=== PATIENT | female | born 1980 | race Caucasian/White ===

== ENCOUNTER 2020-06-10 13:45 | Outpatient (REF) | payer MEDICAID, SELFPAY | END 2020-06-10 13:46 | disposition home or self-care (01) | LOC: HO.LAB 13:45 | PROVIDERS: Visit Provider Internal Medicine | DX: Z20.822 Contact with and (suspected) exposure to COVID-19 (principal) | CPT/HCPCS: 36415; C9803; U0003 ==

== ENCOUNTER 2021-01-28 02:49 | Emergency (ER) | payer MEDICAID, SELFPAY ==
--- NOTE | ~2021-01-28 | XR_ITS ---
EXAMINATION: XR CHEST CLINICAL INFORMATION: Cough COMPARISON: 08/07/2015 TECHNIQUE: Frontal view of the chest was obtained. FINDINGS: The lungs are clear with no focal consolidation. No evidence of pneumothorax, pulmonary edema, or pleural effusions. The cardiomediastinal silhouette is unremarkable. No acute osseous findings. Fusion hardware noted at the cervicothoracic junction. XR/XR chest 1V IMPRESSION: No acute cardiopulmonary findings.
[2021-01-28 03:04] VITALS: BP 128/104; PULSE 102; RESP 18; TEMP 37.3; O2SAT 99; BMI 42.5
[2021-01-28 03:30] LABS: IDNOW Serial# 9DD0AD1C
[2021-01-28 03:31] LABS: COVID-19 Test Positive (Negative)
--- NOTE | 2021-01-28 04:53 | PC.NURSE ---
at bedside for primary eval.
--- NOTE | 2021-01-28 04:58 | ED_ITS ---
HPI - General Adult General Chief complaint: General Medical Stated complaint: COVID symptoms Time Seen by Provider: 01/28/21 04:51 Source: patient Mode of arrival: ambulatory Limitations: no limitations History of Present Illness HPI narrative: Patient comes emergency room complaining of COVID like symptoms. Patient reports headache, bilateral eye pressure, chills, nonproductive cough, runny nose for 2 days. Patient states that her daughter has similar symptoms, the daughter works at [employer]. Related Data Previous Rx's Medication Instructions Recorded acetaminophen 650 mg 650 mg PO Q8H PRN #20 tab 01/28/21 tablet,extended release Allergies Allergy/AdvReac Type Severity Reaction Status Date / Time ciprofloxacin [CIPROFLOXACIN] Allergy Severe ITCHING Verified 01/28/21 03:04 THROAT SWELLING Sulfa (Sulfonamide Allergy Intermediate GI UPSET, Verified 01/28/21 03:04 Antibiotics) ITCHING [SULFA (SULFONAMIDE ANTIBIOTICS)] ibuprofen [IBUPROFEN] Allergy Unknown RASH Verified 01/28/21 03:04 quetiapine [From SEROQUEL] Allergy Unknown RASH Verified 01/28/21 03:04 motrin Allergy Unknown Rash Uncoded 01/28/21 03:04 sulfa Allergy Unknown Rash Uncoded 01/28/21 03:04 Review of Systems Review of Systems: Constitutional : No Weight loss, complaining of fever, chills, fatigue, generalized malaise ENT/Mouth : No Hearing loss, No Ear Pain, No Nasal Congestion, No Sinus Pain, No Hoarseness, No sore throat, No Rhinorrhea, No Swallowing Difficulty Eyes: No Eye Pain, No Swelling, No Redness, No Foreign Body, No Discharge, No Vision Changes, complaining of eye burning and eye pressure Cardiovascular : No Chest Pain, No SOB, No Dyspnea on Exertion, No Orthopnea, No Edema, No Palpitations Respiratory : Complaining of a nonproductive and runny nose No Sputum, No Wheezing, No Smoke Exposure, No Dyspnea Gastrointestinal : No Nausea, No Vomiting, No Diarrhea, No Constipation, No abdominal Pain, No Hematochezia, No Melena Genitourinary : no irregular bleeding, No Dysuria, No Urinary Frequency, No Hematuria, No Urinary Incontinence, No Urgency, No Flank Pain, No Urinary Flow Changes, No Hesitancy Musculoskeletal : No joint pain, No Myalgias, No Joint Swelling Skin : No Skin Lesions, No rash Neuro : No Weakness, No Numbness, No Paresthesias, No Loss of Consciousness, No Dizziness, No Headache Psych : No Anxiety/Panic, No Depression, No SI/HI/AH/VH, No Social Issues, Heme/Lymph: No Bruising, No Bleeding,No Lymphadenopathy Endocrine : No Polyuria, No Polydipsia, No Temperature Intolerance PMFSH Social History Social History Advance Directives: No Advance Directives Information Provided: Yes Patient : No Physical Exam Vital Signs: Vital Signs: Last Vital Signs Temp 99.2 F 01/28/21 03:04 Pulse 102 H 01/28/21 03:04 Resp 18 01/28/21 03:04 BP 128/104 H 01/28/21 03:04 Pulse Ox 99 01/28/21 03:04 Body Mass Index 42.5 Const: Other: Appearance: Alert. Oriented X3. No acute distress. Eyes: Pupils equal, round and reactive to light. ENT: Pharynx normal. Neck: Normal inspection. Neck supple. No lymph nodes noted. No crepitus CVS: Normal heart rate and rhythm. Pulses normal. Normal S1 and S2 Respiratory: No respiratory distress. Breath sounds normal. No Wheezing. No rales Abdomen: Soft and nontender. No rigidity. No distention. good BS x4 Skin: Skin warm and dry. Normal skin color. Normal skin turgor. Extremities: No lower extremity edema. No Lacerations. No Rash Neuro: Oriented X 3. No motor deficit. No sensory deficit. Moving all ext ermities. No slurred speech. Course Course Course Narrative: I discussed with the patient that she tested positive for COVID-19. Explained to the patient that she will need to stay in isolation for 14 days. With the patient, no acute findings Medical Decision Making Lab Data Labs: Lab Results 01/28/21 Range/Units 03:03 COVID-19 (ESTEFANIA) Positive A (Negative) COVID-19 Clin Com See Note Imaging Data Chest x-ray: Radiologist's impression: The lungs are clear with no focal consolidation. No evidence of pneumothorax, pulmonary edema, or pleural effusions. The cardiomediastinal silhouette is unremarkable. No acute osseous findings. Fusion hardware noted at the cervicothoracic junction. XR/XR chest 1V IMPRESSION: No acute cardiopulmonary findings. Discharge Plan Discharge Clinical Impression: COVID-19 Patient Disposition: Home, Self-Care Instructions: COVID-19 (Coronavirus Disease 2019) (ED) Additional Instructions: You need to isolate for 14 days. All your immediate contact need to be tested. Please follow-up with your primary care physician tomorrow. If you have any worsening or new symptoms, please return to the emergency room or call 911 Prescriptions: New acetaminophen 650 mg tablet extended release 650 mg PO Q8H PRN (Reason: fever or pain) Qty: 20 RF: 0
== END 2021-01-28 05:19 | disposition home or self-care (01) ==
PROVIDERS: Emergency Provider Emergency Medicine
DX: U07.1 COVID-19 (principal)
CPT/HCPCS: 36415; 71045; 87635; 99283

== ENCOUNTER 2021-06-10 13:37 | Emergency (ER) | payer OTHER, MEDICAID, SELFPAY ==
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
[2021-06-10 14:41] VITALS: BP 190/96; PULSE 88; RESP 16; TEMP 36.8; O2SAT 100; BMI 42.5
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
== END 2021-06-10 17:30 | disposition home or self-care (01) ==
PROVIDERS: Emergency Provider Emergency Medicine; PCP Family Medicine
DX: S76.012A Strain of muscle, fascia and tendon of left hip, initial encounter (principal); S16.1XXA Strain of muscle, fascia and tendon at neck level, initial encounter; V43.52XA Car driver injured in collision with other type car in traffic accident, initial encounter; Y93.89 Activity, other specified; Y92.414 Local residential or business street as the place of occurrence of the external cause; Y99.9 Unspecified external cause status
CPT/HCPCS: 72125; 73502; 99283; 99284

== ENCOUNTER 2022-01-26 08:03 | Outpatient (REF) | payer MEDICAID, OTHER, SELFPAY | END 2022-01-26 08:04 | disposition home or self-care (01) | LOC: HO.HOSX 08:03 | PROVIDERS: Visit Provider Physician Assistant | DX: Z13.89 Encounter for screening for other disorder (principal) ==

== ENCOUNTER 2023-03-30 15:56 | Outpatient (REF) | payer MEDICAID, SELFPAY ==
[2023-03-30 17:44] LABS: MANUAL DIFF FLAG NO
[2023-03-30 17:50] LABS: Basophils Percent Auto 0.4 % (0-2); Eosinophils Absolute Auto 0.1 X10*3/uL (0.0-0.4); Eosinophils Percent Auto 1.7 % (0-4); Hematocrit 30.4 % (37.0-47.0); Imm Gran Abs Auto 0.03 X10*3/uL (0.00-0.03); Imm Gran Pct Auto 0.4 % (0.0-0.4); Lymphocytes Absolute Auto 2.2 X10*3/uL (1.2-4.9); Lymphocytes Percent Auto 29.4 % (20-40); Mean Corpuscular HGB Conc 32.9 g/dl (31.0-35.0); Mean Corpuscular Hemoglobin 25.4 pg (27.0-33.0); Mean Corpuscular Volume 77.4 fL (80.0-98.0); Mean Platelet Volume 10.4 fL (9.4-12.3); Monocytes Absolute Auto 0.5 X10*3/uL (0.1-1.2); Monocytes Percent Auto 6.3 % (2-11); Neutrophils Absolute Auto 4.7 x10*3/uL (2.0-8.3); Neutrophils Percent Auto 61.8 % (45-73); Platelet Count 378 X10*3/uL (160-400); Red Blood Count 3.93 X10*6/uL (4.20-5.50); Red Cell Distribution Width 17.3 % (11.0-16.0); White Blood Count 7.6 X10*3/uL (4.8-10.8)
[2023-03-30 18:28] LABS: Alanine Aminotransferase 52 U/L (0-31); Albumin Level 3.9 g/dL (3.5-5.0); Alkaline Phosphatase 68 U/L (39-117); Anion Gap 13 (12-20); Aspartate Amino Transferase 44 U/L (5-31); Bilirubin Total 0.2 mg/dL (0.0-1.0); Blood Urea Nitrogen 6 mg/dL (9-16); Calcium 9.7 mg/dL (8.4-10.2); Carbon Dioxide 24 mmol/L (22-29); Chloride 109 mmol/L (96-108); Cholesterol 213 mg/dL (<200); Estimated Glomerular Filt Rate > 60; Glucose Random 103 mg/dL (60-115); HDL Cholesterol 46 mg/dL (>40); Iron 24 mcg/dL (30-160); LDL Cholesterol Calculated 114 mg/dL (<100); Percent Iron Saturation 8 % (15-50); Potassium 4.3 mmol/L (3.3-5.1); Sodium 142 mmol/L (135-145); Total Iron Binding Capacity 308 mcg/dL (228-428); Total Protein 7.5 g/dL (6.5-8.0); Triglycerides 265 mg/dL (<150); Unsaturated Iron Binding 284 ug/dL
[2023-03-30 18:45] LABS: Ferritin 20 ng/mL (10-250); TSH reflex Free T4 0.19 uIU/mL (0.32-4.0)
[2023-03-30 19:23] LABS: Free T4 (Free Thyroxine) 0.82 ng/dL (0.71-1.85)
[2023-03-30 23:43] LABS: Creatinine Urine 59.56 mg/dL
[2023-03-31 11:32] LABS: CT PCR NOT DETECTED (Not Detect.); NG PCR NOT DETECTED (Not Detect.)
[2023-03-31 13:41] LABS: BV Int Neg Control Negative (Negative); BV Int Pos Control Positive (Positive)
== END 2023-03-30 15:57 | disposition home or self-care (01) ==
LOC: HO.CHCLDS 15:56
PROVIDERS: Advanced Practice Midwife; Visit Provider Family Medicine
DX: E66.01 Morbid (severe) obesity due to excess calories (principal); Z68.41 Body mass index [BMI] 40.0-44.9, adult; D64.9 Anemia, unspecified; N89.8 Other specified noninflammatory disorders of vagina
CPT/HCPCS: 0353U; 36415; 80053; 80061; 82043; 82570; 82728; 83540; 84439; 84443; 85025; 87480; 87510; 87660

== ENCOUNTER 2023-05-05 08:28 | Outpatient (REF) | payer MEDICAID, SELFPAY ==
--- NOTE | ~2023-05-05 | XR_ITS ---
EXAMINATION: XR HAND, RIGHT CLINICAL INFORMATION: Pain. COMPARISON: None available. TECHNIQUE: PA, lateral, and oblique views of the right hand. FINDINGS: Bony alignment and mineralization are normal. There is mild osteoarthritic change of the interphalangeal joint of the thumb. No fracture or dislocation is seen. The proximal and distal carpal rows are intact. There is no abnormal bone erosion. No focal soft tissue swelling, gas or foreign body is seen. 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 The examination is otherwise unremarkable.
== END 2023-05-05 08:29 | disposition home or self-care (01) ==
LOC: HO.HOSX 08:28
PROVIDERS: Visit Provider Orthopaedic Surgery
DX: M79.641 Pain in right hand (principal); R20.0 Anesthesia of skin; M79.601 Pain in right arm
CPT/HCPCS: 73130; 99202

== ENCOUNTER 2023-05-05 10:25 | Outpatient (AMB) | payer MEDICAID, SELFPAY ==
[2023-05-05 11:29] VITALS: BMI 42.5
--- NOTE | 2023-05-05 11:29 | A.OFFVIS_ITS ---
Intake Vital Signs 05/05/23 11:29 Height 5 ft 3 in Weight 240 lb BMI 42.5 Intake Visit Reasons: [id number] hand pain Intake Note: right hand dominant female, presents today for her right hand pain. States pain is all around her wrist, burning sensation and pain in neck when she lifts her arm. No injury she can recall. States she has numbness and tingling on a daily basis especially at night time that started about 2 months ago. States she was given a brace however she is only able to wear it for 1 hour due to increase pain. Allergies ciprofloxacin [CIPROFLOXACIN] Allergy (Severe, Verified 05/05/23 11:33) ITCHING THROAT SWELLING Sulfa (Sulfonamide Antibiotics) [SULFA (SULFONAMIDE ANTIBIOTICS)] Allergy (Intermediate, Verified 05/05/23 11:33) GI UPSET, ITCHING ibuprofen [IBUPROFEN] Allergy (Unknown, Verified 05/05/23 11:33) RASH quetiapine [From SEROQUEL] Allergy (Unknown, Verified 05/05/23 11:33) RASH motrin Allergy (Unknown, Uncoded 05/05/23 11:33) Rash sulfa Allergy (Unknown, Uncoded 05/05/23 11:33) Rash HPI [id number] hand pain HPI Details Lyubov is a 42 year old right hand dominant woman who presents with complaints numbness in her right middle and ring fingers, and a burning pain extending up the volar aspect of her right forearm. She also complains of pain extending up across the medial aspect of the elbow, and then a pain along the lateral aspect of the upper arm and then a pain that extends up to both sides of her neck with motion of her right arm. These symptoms have been present for ~2 months now. She says her numbness in the middle and ring fingers appears to be constant. She was given a wrist brace to wear but says she cannot tolerate it for more thna an hour due to increased pain. 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 Review of Systems Const All systems reviewed & are unremarkable except as noted in HPI and below Physical Exam Vital Signs: BMI result Body Mass Index 42.5 Const General: cooperative, healthy appearing and no acute distress Orientation/consciousness: patient oriented x3 HEENT Head: Yes normocephalic and Yes atraumatic Eyes EOM: EOMs intact bilaterally Resp Effort & Inspection: normal respiratory effort and able to speak in complete sentences Cardio Jugular venous distension: no JVD Skin General skin exam: turgor normal Rashes: no rashes Neuro General: patient oriented x3 Extrem Other: Evaluation of Right Upper Extremity: The patient is alert, oriented, and in no acute distress Neuro: Dense numbness in the middle & ring fingers. Normal sensation to the tips of other digits No thenar or intrinsic wasting Good APB muscle belly firing and good finger cross Interestingly, she also says that she has dense numbness in the volar forearm. Vascular: Cap refill brisk ROM: She can make a fist and extend all her digits No locking or catching Skin: No lacerations or abrasions. General: No Ecchymosis. No Erythema or evidence of infection. Radiographs: 3 views of the right hand were taken and viewed by me today in clinic. They show no fractures, dislocations, or significant arthritic changes. Psych Appearance: grossly normal Affect: normal affect Attitude: cooperative Assessment & Plan Assessment & Plan (1) Numbness of right hand: Code(s): R20.0 - Anesthesia of skin (2) Right arm pain: Code(s): M79.601 - Pain in right arm Plan Assessment & Plan: 1. Right hand numbness Primarily in the middle & ring fingers Dense numbness I ordered a NCS to assess for peripheral nerve compression vs cervical radiculopathy She will follow up when completed for review 2. Right arm pain In the medial volar forearm, also the lateral aspect of her upper arm, and then pain in her neck with right arm range of motion. I did explain that if she is having nerve compression in the carpal tunnel, I do not think that this is contributing to any of the painful symptoms in her upper arm shoulder or neck. It could be contributing to some of the discomfort in her volar forearm. Scribed for Diana España MD by Clark Rivera, medical radiation therapist, on [ ] at [ ], EST. Orders: Orders XR hand RT min 3V Today M79.641 - Pain in right hand NE nerve conduction velocity Today R20.0 - Anesthesia of skin, R20.2 - Paresthesia of skin Coding Level of Care Code New Pt Level 3 (80408) Diagnoses Numbness of right hand R20.0 Right arm pain M79.603
== END 2023-05-05 12:11 | disposition home or self-care (01) ==
PROVIDERS: PCP Family Medicine; Visit Provider Orthopaedic Surgery
DX: R20.0 Anesthesia of skin (principal); M79.601 Pain in right arm
CPT/HCPCS: 99203

== ENCOUNTER 2023-06-18 13:00 | Outpatient (REF) | payer MEDICAID, SELFPAY ==
--- NOTE | 2023-06-18 13:03 | EMG_ITS ---
Chief complaint: 2 months of right wrist pain and tingling on tips of 3rd-5th digits. Wearing the wrist splints have helped so far. Denies neck pain. Although history of cervical fusion. Reason for referral: Evaluate for Carpal Tunnel Syndrome versus radiculopathy Referred by: Dr. España Procedure done: Right upper extremity NCS/EMG Precautions and/or limitations: None The limb temperature was monitored continuously and remained between 32-36 degrees C during the performance of the NCS. Nerve Conduction Studies Anti Sensory Summary Table ?Stim Site NR Onset (ms) Norm Onset (ms) Peak (ms) Norm Peak (ms) O-P Amp (?V) Norm O-P Amp Site1 Site2 Delta-0 (ms) Dist (cm) Hussein (m/s) Norm Hussein (m/s) Right Median Anti Sensory (2nd Digit) Wrist ? 2.3 2.9 <3.6 30.1 >10 Wrist 2nd Digit 2.3 14.0 61 Right Radial Anti Sensory (Thumb) Forearm ? 1.5 2.0 <3.1 16.6 Forearm Thumb 1.5 0.0 Right Ulnar Anti Sensory (5th Digit) Wrist ? 2.1 2.8 <3.7 19.2 >15.0 Wrist 5th Digit 2.1 14.0 67 Motor Summary Table ?Stim Site NR Onset (ms) Norm Onset (ms) O-P Amp (mV) Norm O-P Amp iAmp (mV) Amp (1st) (%) Site1 Site2 Delta-0 (ms) Dist (cm) Hussein (m/s) Norm Hussein (m/s) Right Median Motor (Abd Poll Brev) Wrist ? 3.0 <3.9 11.2 >4.5 13.4 100.0 Elbow Wrist 3.7 20.0 54 >45 Elbow ? 6.7 11.9 14.6 106.3 Right Ulnar Motor (Abd Dig Minimi) Wrist ? 2.4 <3.0 9.1 >5 11.4 100.0 B Elbow Wrist 2.9 18.0 62 >45 B Elbow ? 5.3 7.4 9.8 81.3 A Elbow B Elbow 1.7 10.0 59 >45 A Elbow ? 7.0 6.2 8.2 68.1 EMG ?Side Muscle Nerve Root Ins Act Fibs Psw Amp Dur Poly Recrt Int Pat Comment Right 1stDorInt Ulnar C8-T1 Nml Nml Nml Nml Nml 0 Nml Complete Right FlexCarRad Median C6-7 Nml Nml Nml Nml Nml 0 Nml Complete Right Biceps Musculocut C5-6 Nml Nml Nml Nml Nml 0 Nml Complete Right Triceps Radial C6-7-8 Nml Nml Nml Nml Nml 0 Nml Complete Right Deltoid Axillary C5-6 Nml Nml Nml Nml Nml 0 Nml Complete FINDINGS: All motor and sensory nerves tested showed normal latencies, amplitudes and conduction velocities. Concentric needle EMG was performed in selected muscles of the right upper extremity. Study did not reveal signs of electric abnormalities as shown in the table below. IMPRESSION: 1. This is a normal study. 2. There is no electrodiagnostic evidence for median neuropathy, ulnar neuropathy, brachial plexopathy, or cervical radiculopathy. Thank you for your kind referral. Nessa Padilla MD, FERCHO Board Certified, [place] [employer] and [employer] (ABPMR) Board Certified, [place] Board [employer] Electrodiagnostic [employer] (ABEM) [place] [id number] [facility]
== END 2023-06-18 13:01 | disposition home or self-care (01) ==
LOC: HO.NEURO 13:00
PROVIDERS: PCP Family Medicine; Visit Provider Orthopaedic Surgery
DX: R20.0 Anesthesia of skin (principal); R20.2 Paresthesia of skin
CPT/HCPCS: 95886; 95909

== ENCOUNTER → 2023-06-18 13:03 | Outpatient (BNV) | payer MEDICAID, SELFPAY | PROVIDERS: PCP Family Medicine; Visit Provider Physical Medicine & Rehabilitation | DX: M25.531 Pain in right wrist (principal) | CPT/HCPCS: 95886; 95909 ==

== ENCOUNTER 2023-07-14 08:24 | Outpatient (REF) | payer MEDICAID, SELFPAY ==
--- NOTE | ~2023-07-14 | MM_ITS ---
EXAMINATION: MM SCREENING DIGITAL BREAST TOMOSYNTHESIS, BILATERAL CLINICAL INFORMATION: Screening. Asymptomatic. The patient has had a prior bilateral breast reduction. COMPARISON: Mammography: This is a baseline mammogram. TECHNIQUE: Digital breast tomosynthesis is performed in both the craniocaudal and mediolateral oblique views along with computer-aided detection (CAD). Synthesized 2D images are generated from the tomosynthesis. FINDINGS: There are scattered areas of fibroglandular density (ACR BI-RADS breast composition Category b). There are no significant masses, abnormal calcifications, or other abnormalities. Post reduction changes are present. MM/MM tomosynthesis screening BI IMPRESSION: No mammographic evidence of malignancy. ASSESSMENT: BI-RADS BI-RADS 2 - Benign Findings RECOMMENDATION: Routine annual mammography screening. 1 year F/U This examination should not preclude the clinical evaluation of a suspicious palpable abnormality. This patient's information was entered into a reminder system with a target due date for their next mammogram.
== END 2023-07-14 08:25 | disposition home or self-care (01) ==
LOC: HO.MAMMO 08:24
PROVIDERS: PCP Family Medicine; Visit Provider Family Medicine
DX: Z12.31 Encounter for screening mammogram for malignant neoplasm of breast (principal)
CPT/HCPCS: 77063; 77067

== ENCOUNTER → 2023-07-14 08:45 | Outpatient (BNV) | payer MEDICAID, SELFPAY | PROVIDERS: PCP Family Medicine; Visit Provider Radiology Diagnostic Radiology | DX: Z12.31 Encounter for screening mammogram for malignant neoplasm of breast (principal) | CPT/HCPCS: 77063; 77067 ==

== ENCOUNTER 2023-12-22 11:43 | Outpatient (REF) | payer MEDICAID, SELFPAY ==
[2023-12-22 13:59] LABS: MANUAL DIFF FLAG NO
[2023-12-22 14:08] LABS: Basophils Percent Auto 0.3 % (0-2); Eosinophils Absolute Auto 0.1 X10*3/uL (0.0-0.4); Eosinophils Percent Auto 0.8 % (0-4); Hematocrit 29.2 % (37.0-47.0); Hemoglobin 9.7 g/dl (12.0-16.0); Imm Gran Abs Auto 0.01 X10*3/uL (0.00-0.03); Imm Gran Pct Auto 0.1 % (0.0-0.4); Lymphocytes Absolute Auto 1.8 X10*3/uL (1.2-4.9); Lymphocytes Percent Auto 24.8 % (20-40); Mean Corpuscular HGB Conc 33.2 g/dl (31.0-35.0); Mean Corpuscular Hemoglobin 24.5 pg (27.0-33.0); Mean Corpuscular Volume 73.7 fL (80.0-98.0); Mean Platelet Volume 10.2 fL (9.4-12.3); Monocytes Absolute Auto 0.4 X10*3/uL (0.1-1.2); Monocytes Percent Auto 5.8 % (2-11); Neutrophils Percent Auto 68.2 % (45-73); Platelet Count 353 X10*3/uL (160-400); Red Blood Count 3.96 X10*6/uL (4.20-5.50); Red Cell Distribution Width 17.5 % (11.0-16.0); White Blood Count 7.4 X10*3/uL (4.8-10.8)
[2023-12-22 14:28] LABS: Alanine Aminotransferase 19 U/L (0-31); Alkaline Phosphatase 62 U/L (39-117); Anion Gap 12 (12-20); Aspartate Amino Transferase 18 U/L (5-31); Bilirubin Total 0.3 mg/dL (0.0-1.0); Blood Urea Nitrogen 6 mg/dL (9-16); Calcium 9.4 mg/dL (8.4-10.2); Carbon Dioxide 24 mmol/L (22-29); Chloride 106 mmol/L (96-108); Cholesterol 185 mg/dL (<200); Estimated Glomerular Filt Rate > 60; Glucose Random 103 mg/dL (60-115); HDL Cholesterol 43 mg/dL (>40); LDL Cholesterol Calculated 95 mg/dL (<100); Potassium 4.2 mmol/L (3.3-5.1); Sodium 138 mmol/L (135-145); Total Protein 7.4 g/dL (6.5-8.0); Triglycerides 237 mg/dL (<150)
[2023-12-22 14:37] LABS: HIV AB/AG Nonreactive (Nonreactive); HIV Num 1 0.04 S/CO (0.00-0.99); ~HepC Num1 0.16 S/CO (0.00-0.79); ~Hepatitis C Antibody Nonreactive (Nonreactive)
[2023-12-22 14:48] LABS: TSH reflex Free T4 0.33 uIU/mL (0.32-4.0)
== END 2023-12-22 11:44 | disposition home or self-care (01) ==
LOC: HO.CHCLDS 11:43
PROVIDERS: Visit Provider Family Medicine
DX: Z00.00 Encounter for general adult medical examination without abnormal findings (principal); E66.9 Obesity, unspecified; E78.5 Hyperlipidemia, unspecified
CPT/HCPCS: 36415; 80053; 80061; 84443; 85025; 86803; 87389

== ENCOUNTER 2024-05-22 10:57 | Outpatient (REF) | payer MEDICAID, SELFPAY ==
[2024-05-22 14:10] LABS: MANUAL DIFF FLAG NO
[2024-05-22 14:16] LABS: Basophils Percent Auto 0.2 % (0-2); Eosinophils Absolute Auto 0.1 X10*3/uL (0.0-0.4); Eosinophils Percent Auto 0.8 % (0-4); Hemoglobin 8.1 g/dl (12.0-16.0); Imm Gran Abs Auto 0.03 X10*3/uL (0.00-0.03); Imm Gran Pct Auto 0.4 % (0.0-0.4); Lymphocytes Absolute Auto 1.9 X10*3/uL (1.2-4.9); Lymphocytes Percent Auto 23.1 % (20-40); Mean Corpuscular HGB Conc 32.4 g/dl (31.0-35.0); Mean Corpuscular Hemoglobin 22.8 pg (27.0-33.0); Mean Corpuscular Volume 70.2 fL (80.0-98.0); Mean Platelet Volume 9.8 fL (9.4-12.3); Monocytes Absolute Auto 0.5 X10*3/uL (0.1-1.2); Monocytes Percent Auto 5.5 % (2-11); Neutrophils Absolute Auto 5.8 x10*3/uL (2.0-8.3); Platelet Count 437 X10*3/uL (160-400); Red Blood Count 3.56 X10*6/uL (4.20-5.50); Red Cell Distribution Width 16.8 % (11.0-16.0); White Blood Count 8.3 X10*3/uL (4.8-10.8)
[2024-05-22 14:40] LABS: Cholesterol 183 mg/dL (<200); HDL Cholesterol 47 mg/dL (>40); Iron 27 mcg/dL (30-160); LDL Cholesterol Calculated 109 mg/dL (<100); Percent Iron Saturation 9 % (15-50); Total Iron Binding Capacity 307 mcg/dL (228-428); Triglycerides 135 mg/dL (<150); Unsaturated Iron Binding 280 ug/dL
[2024-05-22 14:50] LABS: Ferritin 8 ng/mL (10-250)
== END 2024-05-22 10:58 | disposition home or self-care (01) ==
LOC: HO.CHCLDS 10:57
PROVIDERS: Visit Provider Family Medicine
DX: D64.9 Anemia, unspecified (principal); E78.5 Hyperlipidemia, unspecified
CPT/HCPCS: 36415; 80061; 82728; 83540; 85025

== ENCOUNTER 2024-08-17 15:11 | Outpatient (REF) | payer MEDICAID, SELFPAY ==
[2024-08-17 17:43] LABS: MANUAL DIFF FLAG NO
[2024-08-17 18:04] LABS: Basophils Percent Auto 0.3 % (0-2); Eosinophils Absolute Auto 0.1 X10*3/uL (0.0-0.4); Eosinophils Percent Auto 1.1 % (0-4); Hemoglobin 7.8 g/dl (12.0-16.0); Imm Gran Abs Auto 0.03 X10*3/uL (0.00-0.03); Imm Gran Pct Auto 0.5 % (0.0-0.4); Lymphocytes Absolute Auto 1.8 X10*3/uL (1.2-4.9); Lymphocytes Percent Auto 30.1 % (20-40); Mean Corpuscular HGB Conc 31.2 g/dl (31.0-35.0); Mean Corpuscular Hemoglobin 21.4 pg (27.0-33.0); Mean Corpuscular Volume 68.7 fL (80.0-98.0); Mean Platelet Volume 10.2 fL (9.4-12.3); Monocytes Absolute Auto 0.4 X10*3/uL (0.1-1.2); Monocytes Percent Auto 6.7 % (2-11); Neutrophils Absolute Auto 3.7 x10*3/uL (2.0-8.3); Neutrophils Percent Auto 61.3 % (45-73); Platelet Count 428 X10*3/uL (160-400); Red Blood Count 3.64 X10*6/uL (4.20-5.50); Red Cell Distribution Width 17.6 % (11.0-16.0); White Blood Count 6.1 X10*3/uL (4.8-10.8)
[2024-08-17 18:17] LABS: Alanine Aminotransferase 11 U/L (0-31); Albumin Level 3.8 g/dL (3.5-5.0); Alkaline Phosphatase 56 U/L (39-117); Anion Gap 10 (12-20); Aspartate Amino Transferase 22 U/L (5-31); Bilirubin Total 0.4 mg/dL (0.0-1.0); Blood Urea Nitrogen 8 mg/dL (9-16); Carbon Dioxide 25 mmol/L (22-29); Chloride 109 mmol/L (96-108); Estimated Glomerular Filt Rate > 60; Glucose Random 87 mg/dL (60-115); Iron 15 mcg/dL (30-160); Percent Iron Saturation 4 % (15-50); Potassium 4.2 mmol/L (3.3-5.1); Sodium 140 mmol/L (135-145); Total Iron Binding Capacity 346 mcg/dL (228-428); Total Protein 7.5 g/dL (6.5-8.0); Unsaturated Iron Binding 331 ug/dL
[2024-08-17 18:35] LABS: TSH reflex Free T4 0.27 uIU/mL (0.32-4.0); Vitamin D 25-OH Total 12.1 ng/mL (>30)
--- OUTSIDE RECORDS SUMMARY | 2024-08-17 18:52 | XMS_ITS | Encounter Summary ---
Author Organization [employer] Address [address] [facility] 7t [place] [address] Care Team Providers Care Wire Frame Maker Name Role Phone Flaca Matthews MD Primary Care Provider [phone] Reason for Visit * Reason Comments Med Refill Encounter Details Date Type Department Care Team ([facility] Contact Info) Description 08/17/2024 Refill [facility] CH[facility] MED & PEDS [address] [place] [address] Flaca Matthews MD [address] [place] [address] Social History Tobacco Use Types Packs/Day Years Used Date Smoking Tobacco: Never Passive Smoke Exposure: Never Smokeless Tobacco: Never Alcohol Use Standard Drinks/Week Comments Never 0 (1 standard drink = 0.6 oz pur e alcohol) Depression Answer Date Recorded Patient Health Questionnaire-9 Score 14 05/18/2023 Patient Health Questionnaire-9 Score 14 05/18/2023 Last PHQ-9: Questionnaire Data Not on file 1 07/19/2022 Housing Stability Answer Date Recorded What is your housing situation today? I have americo herring 10/05/[address] you li ve. Do you have problems with any of the following? None of the above 10/05/2023 Food Insecurity Answer Date Recorded Within the past 12 months, y ou worried that your food would run out before you got money to buy more: Never True 09/17/2023 Within the past 12 months,th e food you bought just didn't last and you didn't have enough money to get more: Never True 05/2024 Transportation Answer Date Recorded In the past 12 months, has l ack of transportation kept you from medical appts, meetings, work or from getting things needed for daily living? No 09/17/2023 Utilities Answer Date Recorded In the past 12 months, has t he electric, gas, oil or water company threatened to shut off services in your home? No 09/17/2023 Depression Answer Date Recorded Patient Health Questionnaire-2 Score 4 05/18/2023 Comments No Sex and Gender Information Value Date Recorded Sex Assigned at Female 04/06/2022 10:15 AM EDT Legal Sex Female 10:15 AM EDT Gender Identity Female 04/06/2022 10:15 AM EDT Sexual Orientation Straight 04/06/2022 10 :15 AM EDT documented as of this encounter Plan of Treatment Not on file documented as of this encounter Visit Diagnoses Not on filedocumented in this encounter Additional Health Concerns Assessment Noted Time PHQ-9 Depression Total Score: 14 023 3:08 PM EST documented as of this encounter Care Teams Wire Frame Maker Relationship Specialty Start Date End Date Flaca Matthews MD [address] [place] [address] PCP - General Family Medicine 03/05/21 documented as of this encounter
--- OUTSIDE RECORDS SUMMARY | 2024-08-17 18:52 | XMS_ITS | Encounter Summary ---
Author Organization [employer] Address [address] [facility] [address] 7[address] [place] [address] Care Team Providers Care National Sales Representative Name Role Phone Flaca Matthews MD Primary Care Provider [phone] Encounter Details Date Type Department Care Team (Latest Contact Info) Description 08/16/2024 Travel Social History Tobacco Use Types Packs/Day Years [...] documented as of this encounter Care Teams National Sales Representative Relationship Specialty Start Date End Date Flaca Matthews MD [address] [place] [address] PCP - General Family Medicine 03/05/21 documented as of this encounter
--- OUTSIDE RECORDS SUMMARY | 2024-08-17 18:52 | XMS_ITS | Encounter Summary ---
Author Organization [employer] Address [address] [facility] 7t [place] [address] Care Team Providers Care Superintendent Pressure Name Role Phone Flaca Matthews MD Primary Care Provider [phone] Reason for Visit * Reason Comments Med Refill Encounter Details Date Type Department Care Team ([facility] Contact Info) Description 07/21/2024 Refill [facility] CH[facility] MED & PEDS [address] [place], [place] [id number] Flaca Matthews MD [address] [place] [address] Social History Tobacco Use Types Packs/Day Years [...] documented as of this encounter Care Teams Superintendent Pressure Relationship Specialty Start Date End Date Flaca Matthews MD [address] [place] [address] PCP - General Family Medicine 03/05/21 documented as of this encounter
--- OUTSIDE RECORDS SUMMARY | 2024-08-17 18:52 | XMS_ITS | Encounter Summary ---
Author Organization [employer] Address [address] [facility] [address]t [place] [address] Care Team Providers Care Munitions Handler Name Role Phone Flaca Matthews MD Primary Care Provider [phone] Reason for Visit * Reason Onset Date Comments Referral 03/31/2024 Encounter Details Date Type Department Care Team ([facility] st Contact Info) Description 03/31/2024 Telephone [facility] [address] [place] [address] Flaca Matthews MD [address] [place] [address] Referral Social History Tobacco Use Types Packs/Day Years [...] AM EDT documented as of this encounter Miscellaneous Notes * Telephone Encounter - Lyubov Cisneros - 04/13/2024 9:18 AM EST Referral was sent as internal on 10/04. Referral processed today. * Telephone Encounter - Suzanne Ernst RN - 04/04/2024 10:58 AM EDT TC placed to pt to f/u on referral request due to TMJ. Pt states that she has been dealing with this jaw pain and discomfort chronically and states that PCP is aware of this. Pt was referred to oral surgery on 10/05/2023 due to right sided temporomandibular pain. Encounter will be forwarded to referrals to see if any update/information on this is available * Telephone Encounter - Vernon Cisneros - 03/31/2024 2:13 PM EDT Tc from Pt requesting a referral for a TMJ , Pt will like a callback [phone] documented in this encounter Plan of Treatment Not on file documented as of this encounter Visit Diagnoses Not on filedocumented in this encounter Additional Health Concerns Assessment Noted Time PHQ-9 Depression Total Score: 14 023 3:08 PM EST documented as of this encounter Care Teams Munitions Handler Relationship Specialty Start Date End Date Flaca Matthews MD [address] [place] [address] PCP - General Family Medicine 03/05/21 documented as of this encounter
--- OUTSIDE RECORDS SUMMARY | 2024-08-17 18:52 | XMS_ITS | Encounter Summary ---
Author Organization [employer] Address [address] [facility] 7t [place] [address] Care Team Providers Care Contract Clerk Name Role Phone Flaca Matthews MD Primary Care Provider [phone] Reason for Visit * Reason Comments Med Refill Encounter Details Date Type Department Care Team ([facility] Contact Info) Description 03/27/2023 Refill [facility] [address] [place] [address] Flaca Matthews MD [address] [place] [address] Social History Tobacco Use Types Packs/Day Years Used Date Smoking Tobacco: Never Passive Smoke Exposure: Never Smokeless Tobacco: Never Alcohol Use Standard Drinks/Week Comments Never 0 (1 standard drink = 0.6 oz pur e alcohol) Depression Answer Date Recorded Patient Health Questionnaire-9 Score 20 08/04/2022 Housing Stability Answer Date Recorded What is your housing situation today? I have americo herring 03/22/[address] you li ve. Do you have problems with any of the following? None of the above 03/22/2023 Food Insecurity Answer Date Recorded Within the past 12 months, y ou worried that your food would run out before you got money to buy more: Never True 03/22/2023 Within the past 12 months,th e food you bought just didn't last and you didn't have enough money to get more: Never True Transportation Answer Date Recorded In the past 12 months, has l ack of transportation kept you from medical appts, meetings, work or from getting things needed for daily living? No 03/22/2023 Utilities Answer Date Recorded In the past 12 months, has t he electric, gas, oil or water company threatened to shut off services in your home? No 03/22/2023 Depression Answer Date Recorded Patient Health Questionnaire-2 Score 4 08/04/2022 Comments Unknown Sex and Gender Information Value Date Recorded [...] Assessment Noted Time PHQ-9 Depression Total Score: 20 023 1:36 PM EST documented as of this encounter Care Teams Contract Clerk Relationship Specialty Start Date End Date Flaca Matthews MD [address] [place] [address] PCP - General Family Medicine 03/05/21 documented as of this encounter
--- OUTSIDE RECORDS SUMMARY | 2024-08-17 18:52 | XMS_ITS | Encounter Summary ---
Author Organization [employer] Address [address] [facility] [address] [place] [address] Care Team Providers Care Commercial Internship Name Role Phone Flaca Matthews MD Primary Care Provider [phone] Reason for Visit * Reason Onset Date Comments chart prep 08/15/2024 Encounter Details Date Type Department Care Team ([facility] Contact Info) Description 08/15/2024 Telephone [facility] CH[facility] MED & PEDS [address] [place] [address] Flaca Matthews MD [address] [place] [address] chart prep Social History Tobacco Use Types Packs/Day Years [...] encounter Miscellaneous Notes * Telephone Encounter - Lexie Walden MA - 08/15/2024 3:39 PM EDT Chart Prep Labs: not done Images: not done Vaccines due: yes Referrals: pending appt Screenings: none Overdue care gaps: SDOH documented in this encounter Plan of Treatment Not on file documented as of this encounter Visit Diagnoses Not on filedocumented in this encounter Additional Health Concerns Assessment Noted Time PHQ-9 Depression Total Score: 14 023 3:08 PM EST documented as of this encounter Care Teams Commercial Internship Relationship Specialty Start Date End Date Flaca Matthews MD [address] [place] [address] PCP - General Family Medicine 03/05/21 documented as of this encounter
--- OUTSIDE RECORDS SUMMARY | 2024-08-17 18:52 | XMS_ITS | Encounter Summary ---
Author Organization [employer] Address [address] [facility] 7t [place] [address] Care Team Providers Care Tugboat Engineer Name Role Phone Flaca Matthews MD Primary Care Provider [phone] Reason for Visit * Reason Onset Date Comments triage 08/01/2024 Encounter Details Date Type Department Care Team ([facility] st Contact Info) Description 08/01/2024 Telephone [facility] CHC MED & PEDS [address] [place] [address] Flaca Matthews MD [address] [place] [address] triage Social History Tobacco Use Types Packs/Day Years [...] encounter Miscellaneous Notes * Telephone Encounter - Rosemary Mcnair RN - 08/01/2024 11:47 AM EST Called pt. She states that she has been having a lot of hair loss x 3 months. Pt. States her hair loss started when she went on Wegovy but has been off it x 2 months and she still has large amount ofhair loss. Pt. Is currently taking Fergon 324mg daily due to iron deficiency and wants to get otherblood work ordered to see if she id deficient in any other vitamins that could cause hair loss. Protocol Used: Hair Loss (Pediatric) Protocol-Based Disposition: televisit scheduled for 1pm to discuss concerns of hair loss and possible orders for blood work. Video visit offer not recorded Positive Triage Question: * Widespread hair thinning and cause not known (Exception: normal hair loss in infancy) * All higher-acuity triage questions were negative * Telephone Encounter - Renuka Black - 08/01/2024 11:37 AM EST Pt requesting appt, states hair loss and is concerned she is on wegovy and believes it may be the cause documented in this encounter Plan of Treatment Not on file documented as of this encounter Visit Diagnoses Not on filedocumented in this encounter Additional Health Concerns Assessment Noted Time PHQ-9 Depression Total Score: 14 023 3:08 PM EST documented as of this encounter Care Teams Tugboat Engineer Relationship Specialty Start Date End Date Flaca Matthews MD [address] [place] [address] PCP - General Family Medicine 03/05/21 documented as of this encounter
--- OUTSIDE RECORDS SUMMARY | 2024-08-17 18:52 | XMS_ITS | Encounter Summary ---
Author Organization [employer] Address [address] [facility] [address] [place] [address] Care Team Providers Care Edge Grinder Machine Name Role Phone Flaca Matthews MD Primary Care Provider [phone] Encounter Details Date Type Department Care Team ([facility] st Contact Info) Description 08/16/2024 2:00 PM EDT Telemedicine [facility] MED & PEDS [address] [place], [place] [phone] Anthony Vazquez MD [address] [place] [address] Intractable chronic migraine with aura with status migrainosus (Primary Dx) Social History Tobacco Use Types Packs/Day Years [...] AM EDT documented as of this encounter Progress Notes * Anthony Ochoa MD - 08/16/2024 2:00 PM EDT Subjective Patient ID: Lyubov Frazier is a 43 y.o. female who presents for No chief complaint on file.. Migraine This is a chronic problem. The quality of the pain is described as throbbing. Pertinent negatives include no dizziness, fever, seizures, tingling or weakness. Review of Systems Constitutional: Negative for fever. Neurological: Negative for dizziness, tingling, seizures and weakness. Objective Physical Exam Neurological: General: No focal deficit present. Mental Status: She is oriented to person, place, and time. Psychiatric: Mood and Affect: Mood normal. Behavior: Behavior normal. Assessment/Plan Problem List Items Addressed This Visit Migraine headache - Primary Increase topamax to 15omg, daily, start sumatriptan, continue with exedrin as needed, follow up as needed documented in this encounter Miscellaneous Notes * Assessment & Plan Note - Anthony Ochoa MD - 08/16/2024 2:31 PM EDTAssociated Problem(s): Migraine headache Increase topamax to 15omg, daily, start sumatriptan, continue with exedrin as needed, follow up as needed documented in this encounter Plan of Treatment Not on file documented as of this encounter Visit Diagnoses Diagnosis Intractable chronic migraine with aura with status migrainosus- Primary documented in this encounter Additional Health Concerns Assessment Noted Time PHQ-9 Depression Total Score: 14 023 3:08 PM EST documented as of this encounter Care Teams Edge Grinder Machine Relationship Specialty Start Date End Date Flaca Matthews MD [address] [place] [address] PCP - General Family Medicine 03/05/21 documented as of this encounter
--- OUTSIDE RECORDS SUMMARY | 2024-08-17 18:52 | XMS_ITS | Clinical Summary ---
Author Organization [employer] Address [address] [facility] [address] [place] [address] Care Team Providers Care Youth Care Professional Name Role Phone Flaca Matthews MD Primary Care Provider [phone] Allergies Active Allergy Reactions Criticality Noted Date Comments Amlodipine 05/12/2023 Ciprofloxacin Itching 09/29/2012 Ibuprofen Itching,Rash Low 03/31/2021 Other reaction(s): chest pain Lactose 08/04/2022 Morphine 08/04/2022 Sulfamethoxazole-Trimethopr im Rash Low 08/04/2022 Medications * This document contains information received from the source organization and may not represent a complete record from that organization. hydroCHLOROthiazid e (HYDRODiuril) 12.5 MG tablet Take 1 tablet (12.5 mg) by mouth in the morning. 30 tablet 09/17/19 24 025 Active norethindrone (Micronor) 0.35 MG tablet Take 1 tablet (0.35 mg) by mouth Once per day. 28 tablet 01/13/20 24 025 Active Semaglutide-Weight Management (Wegovy) 2.4 MG/0.75ML solution auto-injector Inject 2.4 mg under the skin 1 (one) time per week. 3 mL 3 01/26/20 24 Active topiramate (Topamax) 100 MG tablet TAKE ONE TABLET EVERY NIGHT AT BEDTIME 90 tablet 1 03/08/20 24 Active omeprazole (PriLOSEC) [address] capsule TAKE ONE CAPSULE TWICE DAILY IN THE MORNING AND AT BEDTIME 180 capsule 1 03/08/20 24 Active amitriptyline (Elavil) 25 MG tablet TAKE ONE TABLET EVERY NIGHT AT BEDTIME 90 tablet 1 04/03/20 24 Active ferrous gluconate (Fergon) 324 (37.5 Fe) MG tablet TAKE ONE TABLET EVERY MORNING 90 tablet 1 04/03/20 24 Active sertraline (Zoloft) 100 MG tablet TAKE ONE TABLET EVERY NIGHT AT BEDTIME 90 tablet 1 05/01/20 24 Active Tirzepatide-Weight Management (Zepbound) 5 MG/0.5ML solution Inject 5 mg under the skin 1 (one) time per week. Do not start before June 07, 2024. 2 mL 3 06/07/19 25 Active rosuvastatin (Crestor) 40 MG tabletIndications: Hyperlipidemia, unspecified hyperlipidemia type TAKE ONE TABLET EVERY MORNING 90 tablet 3 05/24/20 24 Active losartan (Cozaar) 100 MG tablet TAKE ONE TABLET EVERY NIGHT AT BEDTIME 90 tablet 1 07/25/19 25 Active topiramate (Topamax) 50 MG tablet Take 1 tablet (50 mg) by mouth Once per day. To complete 150mg daily 60 tablet 3 08/17/19 25 Active SUMAtriptan (Imitrex) 50 MG tablet Take 1 tablet (50 mg) by mouth 1 (one) time if needed for migraine for up to 9 doses. May repeat dose once in 2 hours if no relief. Do not exceed 2 doses in 24 hours. 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 MANDI (generalized anxiety disorder) 05/26/2023 Right medial epicondylitis 02/18/2023 Assessment & Plan (02/18/2023 4:33 PM EDT): Patient with complaints of R medial epicondylitis will receive an elbow brace, prescribed Topiramate. Referred to Hand Surgery. Will need X-rays for further evaluation. Moderate episode of recurrent major depressive d isorder 08/04/2022 Assessment & Plan (05/12/2023 2:10 PM EST): Had BH talk with patient, offer switching and increase SSRI, she declined at this moment. Will f/up in next visit Assessment & Plan (08/04/2022 2:34 PM EST): Will refer to BHN, continue sertraline, consider uptritration. Cervical radiculopathy 08/04/2022 COVID-19 08/04/2022 GERD (gastroesophageal reflux disease) 3 Leiomyoma 08/04/2022 LUIS on CPAP 08/04/2022 Primary osteoarthritis of left knee 08/04/2022 Assessment & Plan (08/04/2022 2:35 PM EST): Sp arthoscopy, using a cane to ambulate and getting PT Primary hypertension 08/04/2022 Assessment & Plan (10/05/2023 4:56 PM EDT): Continue Current Medications. Discussed medication refills as needed. Assessment & Plan (06/03/2023 2:44 PM EST): Uncontrolled: was noticed that patient presented visit with elevated blood pressure readings of 143/90 mmHg. Therefor, patient will be provided with blood pressure medications to control readings. Advised to monitor blood pressure at home and bring readings upon next office visit. Assessment & Plan (05/12/2023 2:09 PM EST): Uncontrolled. Elevated diastolic, will scheduled f/up with nursing. Target < 140/90 mmHg. - If SBP < 130/DBP <80 mmHg in more than 75% of home self-monitoring, continue current medication regimen and make f/u with PCP in 3 month - If SBP >130-165/DBP >80-115 mmHg , add BB (metoprolol) given s.e. w/diuretic & CCB and f/u with PCP in 1 month - If SBP > 165/ DBP> 115 mmHg, consult with covering provider - If SBP <90/DBP <50 mmHg, consult with covering provider. Assessment & Plan (03/19/2023 3:55 PM EDT): Uncontrolled: patient presents with elevated blood pressure with readings of 169/96 mmHg., had BP retaken upon visit with readings of 145/94 mmHg. -Will be prescribing medications to control blood pressure. -Advised to keep monitoring at home. -Follow up in 1 month. Assessment & Plan (08/04/2022 2:34 PM EST): Uncontrolled. Does have a hx of white coat, will bring in BP readings from home and machine. Target < 140/90 mmHg Chronic generalized abdominal pain 08/04/2022 Assessment & Plan (08/04/2022 2:35 PM EST): Unknown etiology associated with diarrhea. Denies blood in stool. Will send to GI and labs. Physical exam, annual 08/04/2022 Assessment & Plan (08/04/2022 2:36 PM EST): Elevated BMI and PHQ-9 Does have limited mobility given her arthritis. Has sigmata of PCOS on examination. Will send screening testing Pap smear: UTD Needs mammo Reports she did get her flu shot end of last year Menometrorrhagia 11/21/2018 Nausea 01/19/2018 Shoulder pain 11/04/2017 Gallstone 05/14/2014 Microscopic hematuria 12/15/2012 Constipation 10/19/2012 Sickle cell trait 10/19/2012 Kidney stone 06/20/2012 Simple renal cyst 06/20/2012 Obesity 04/08/2012 Assessment & Plan (05/22/2024 10:20 AM EST): Patient currently on pharmacotherapy to assist with management of her weight. Starting weight: 233 lbs September 2023 Current weight: 192 lbs May 2024 Total weight loss 41 lbs, 17.5% wt loss Review continue lifestyle modifications. Patient was titrated up to treatment dose. Tolerated titration well. Patient was transitioned to Zepbound given change in preferred agent by patient? s insurance and medication efficacy. Reviewed mechanism of action with patient. Discussed side effects with patient: nausea, vomiting, diarrhea & risk of pancreatitis. No contraindications identified: , hx of pancreatitis, hx of medullary thyroid cancer or MEN 2. Discussed calorie deficit, recommended reduction of 20-30% of maintenance calories; microcomputer support specialist referral offered. Recommended to decrease soda and sugary beverage consumption. Recommended at least 20 g per meal of protein to assist with satiety. Recommended at least 150 min/week of moderate intensity exercise. Relevant Medication Tirzepatide-Weight Management (Zepbound) 5 MG / 0.5 ML solution Assessment & Plan (01/07/2024 9:32 AM EDT): Lab works shows triglycerides have improved but still elevated. TSH, kidney function, and liver function normal. Anemia has worsened. Pt has lost 20 lbs so far. Continue on current medications, f/u in 3 months. Assessment & Plan (10/05/2023 4:58 PM EDT): Discussed calorie deficit, recommended reduction of 20-30% of maintenance calories; microcomputer support specialist referral offered. Recommended to decrease soda and sugary beverage consumption. Recommended at least 20 g per meal of protein to assist with satiety. Recommended at least 150 min/week of moderate intensity exercise. Will started Wegovy to assist with weight loss. Relevant Medications Semaglutide-Weight Management (Wegovy) 0.25 MG/0.5 ML Solution auto-injector Assessment & Plan (06/03/2023 2:46 PM EST): Discussed calorie deficit, recommended reduction of 20-30% of maintenance calories; microcomputer support specialist referral offered. Recommended to decrease soda and sugary beverage consumption. Recommended at least 20 g per meal of protein to assist with satiety. Recommended at least 150 min/week of moderate intensity exercise. In addition, will be sending labs for further evaluation. Assessment & Plan (03/19/2023 4:10 PM EDT): Discussed calorie deficit, recommended reduction of 20-30% of maintenance calories; microcomputer support specialist referral offered. Recommended to decrease soda and sugary beverage consumption. Recommended at least 20 g per meal of protein to assist with satiety. Recommended at least 150 min/week of moderate intensity exercise. Will be send for labs for further evaluation. Assessment & Plan (08/04/2022 2:33 PM EST): Discussed calorie deficit, recommended reduction of 20-30% of maintenance calories; microcomputer support specialist referral offered. Recommended to decrease soda and sugary beverage consumption. Recommended at least 20 g per meal of protein to assist with satiety. Recommended at least 150 min/week of moderate intensity exercise. Polycystic ovaries 12/24/2011 Generalized pain 12/24/2011 Migraine headache 12/24/2011 Assessment & Plan (08/16/2024 2:31 PM EDT): Increase topamax to 15omg, daily, start sumatriptan, continue with exedrin as needed, follow up as needed Assessment & Plan (10/06/2023 8:38 AM EDT): Worsening headache, will add amitriptyline & referral to neurology. MRI ordered. No red flags but worsening headache. Pervasive developmental disorder 12/24/2011 Encounters Date Type Department Care Team Description 08/17/2024 Refill [facility] [address] [place] [address] Flaca Matthews MD 08/16/2024 2:00 PM EDT Telemedicine [facility] PEDS [address] [place] [address] Anthony Vazquez MD Intractable chronic migraine with aura with status migrainosus (Primary Dx) 08/16/2024 Travel 08/15/2024 Telephone [facility] PED[facility] [address] [place] [address] Flaca Matthews MD chart prep 08/15/2024 Telephone [facility] MEDICINE [address] [place] [phone] Flaca Matthews MD Nurse Triage 08/01/2024 1:00 PM EST Telemedicine [facility] PEDS [address] [place] [address] Anthony Vazquez MD Alopecia (Primary Dx) 08/01/2024 Travel 08/01/2024 Telephone [facility] [address] [place] [address] Flaca Matthews MD triage 07/21/2024 Refill [facility] [address] [place] [address] Falca Matthews MD 05/24/2024 Refill [facility] [address] [place] [address] Flaca Matthews MD Hyperlipidemia, unspecified hyperlipidemia type 05/22/2024 10:00 AM EST Office Visit [facility] [address] [place] [address] Flaca Matthews MD Class 3 severe obesity due to excess calories with serious comorbidity and body mass index (BMI) of 40.0 to 44.9 in adult (CMS/[facility]) (Primary Dx); Right-sided temporomandibular joint pain-dysfunction syndrome; Anemia, unspecified type; Hyperlipidemia, unspecified hyperlipidemia type 05/22/2024 Telephone [facility] [address] [place] [address] Flaca Matthews MD Referral 05/22/2024 Telephone [facility] [address] [place] [address] Flaca Matthews MD Results 05/22/2024 Travel from Last 3 Months Immunizations Name Administration Dates Next Due DT (pediatric) 09/30/1993 DTP 02/14/1982,02/07/1981,11/06/1979 Hep A, Adult 10/24/2018 Hep B, adult 01/13/2019,10/24/2018 IPV 11/05/1987, 7,02/07/1981,1979 Influenza injectable quadriv alent preservative free 04/12/2019,05/16/2015 Influenza, IIV3, injectable 04/20/2014 Influenza, Split (incl. feliz fied surface antigen) 06/22/2012 Influenza, seasonal, injecta ble, preservative free 02/17/2017 MMR 01/05/1993, 1,10/06/1987,1980 TD (adult), 2 Lf tetanus tox oid, preservative free, adsorbed 11/05/1987,07/28/1983 Tdap 02/14/2015 Social History Tobacco Use Types Packs/Day Years Used Date Smoking Tobacco: Never Passive Smoke Exposure: Never Smokeless Tobacco: Never Tobacco Cessation:Counseling Given: Not Answered Alcohol Use Standard Drinks/Week Comments Never 0 (1 standard drink = 0.6 oz pur e alcohol) Depression Answer Date Recorded Patient Health Questionnaire-9 Score 14 05/18/2023 Patient Health Questionnaire-9 Score 14 05/18/2023 Last PHQ-9: Questionnaire Data Not on file 1 07/19/2022 Housing Stability Answer Date Recorded What is your housing situation today? I have americokathy herring 10/05/[address] you [...] Orientation Straight 04/06/2022 10 :15 AM EDT Last Filed Vital Signs Vital Sign Reading Time Taken Comments Blood Pressure 128/82 05/22/2024 9:50 AM EST Pulse 78 05/22/2024 9:50 AM EST Temperature 36.3 ??C (97.4 ??F) 05/22/2024 9:50 AM ES T Respiratory Rate 20 05/22/2024 9:50 AM EST Oxygen Saturation 99% 05/22/2024 9:50 AM EST Inhaled Oxygen Concentration - - Weight 87.2 kg (192 lb 3.2 oz) 05/22/2024 9:50 A M EST Height 161 cm (5' 3.39 ) 05/22/2024 9:50 AM EST Body Mass Index 33.63 05/22/2024 9:50 AM EST Plan of Treatment Health Maintenance Due Date Last Done Comments CT Colonography 1978 Colonoscopy 1978 FIT 1978 FOBT 1978 Sigmoidoscopy 1978 Depression Monitoring (PHQ-9) 11/17/2023 05/18/2023, 05/18/2023 Pap Smear 04/11/2024 04/11/2021, 04/11/2021 Depression Screening 05/18/2024 05/18/2023, 05/18/20 23 SDOH Screening 10/04/2024 10/05/2023 Influenza Vaccine (#1) 2024 9, 02/17/2017, 05/16/2015, Additional history exists Postponed from 02/06/2024 (Patient Refused) Family Planning (PISQ) 01/12/2025 01/13/2024 DTaP/Tdap/Td Vaccines (6 - Td or Tdap) 02/14/2025 02/14/2015, 11/05/1987, 07/28/1983, Additional history exists Alcohol/Substance Use Screening 05/22/2025 05/22/2024 COVID-19 Vaccine ( season) 2025 04/10/2021, 03/20/2021 Postponed from 02/06/2024 (Patient Refused) Tobacco Screening 05/22/2025 05/22/2024 Mammogram 07/14/2025 07/14/2023 Cervical Cancer Screening 04/11/2026 HPV/Cotest 04/11/2026 04/11/2021, 04/11/2021 Colorectal Cancer Screening 02/02/2027 FIT DNA/Cologuard 02/02/2027 02/03/2024 Zoster Vaccines (1 of 2) 2028 Lipid Panel 05/22/2029 05/22/2024, 12/05, 03/30/2023, Additional history exists RSV Patients and Patients Aged 60 years or older (1 - 1-dose 75+ series) 2053 IPV Vaccines Completed 11/05/1987, 02/05, 02/07/1981, Additional history exists Hepatitis A Vaccines Aged Out 10/24/2018 No long er eligible based on patient's age to complete this topic Hepatitis B Vaccines Discontinued 01/13/2019, 10/25/19 19 HIV Screening Completed 12/22/2023 Hepatitis C Screening Completed 12/22/2023 HIB Vaccines Aged Out No longer eligi ble based on patient's age to complete this topic HPV Vaccines Aged Out No longer eligi ble based on patient's age to complete this topic Meningococcal Vaccine Aged Out No tremaine dwaine eligible based on patient's age to complete this topic Pneumococcal Vaccine: Pediatrics (0 to 5 Years) and At-Risk Patients (6 to 49) Years) Aged Out No longer eligible based on patient's age to complete this topic RSV under 20 months Aged Out No longe r eligible based on patient's age to complete this topic Rotavirus Vaccines Aged Out No longer eligible based on patient's age to complete this topic Procedures Procedure Name Priority Date/Time Associated Diagnosis Comments VITAMIN D,25-OH,TOTAL,IA Routine 08/17/2024 3:14 PM EDT Alopecia COMPREHENSIVE METABOLIC PANEL Routine 08/17/2024 3:14 PM EDT Alopecia IRON AND TOTAL IRON BINDING CAPACITY Routine 08/17/2024 3:14 PM EDT Alopecia CBC WITH AUTO DIFFERENTIAL Routine 08/17/2024 3:14 PM EDT Alopecia TSH W/REFLEX TO FT4 Routine 08/17/2024 3 :14 PM EDT Alopecia IRON AND TOTAL IRON BINDING CAPACITY Routine 05/22/2024 10:59 AM EST Anemia, unspecified type FERRITIN Routine 05/22/2024 10:59 AM EST Anemia, unspecified type LIPID PANEL, STANDARD Routine 05/22/2024 10:59 AM EST Hyperlipidemia, unspecified hyperlipidemia type CBC WITH AUTO DIFFERENTIAL Routine 05/22/2024 10:59 AM EST Anemia, unspecified type LAB COLOGUARD?? COLON CANCER SCREEN Routine 02/03/2024 5:45 PM EDT Colon cancer screening HEPATITIS C AB W/REFL TO HCV RNA, QN, PCR Routine 12/22/2023 12:00 AM EDT Physical exam, annual HIV 1/2 ANTIGEN/ANTIBODY, FOURTH GENERATION W/RFL Routine 12/22/2023 12:00 AM EDT Physical exam, annual BI MAMMOGRAM SCREENING TOMOSYNTHESIS BILATERAL Routine 07/14/2023 8:48 AM EST Breast cancer screening by mammogram THINPREP IMAGING PAP AND HPV MRNA E6/E7 WITH REFLEX TO HPV 16,18/45 Routine 04/11/2021 12:07 PM EDT THINPREP IMAGING PAP AND HPV DNA Routine 04/11/2021 from Last 3 Months or Most Recently Relevant to Health Maintenance Results * (ABNORMAL) Vitamin D, 25-Hydroxy, Total, Immunoassay (08/17/2024 3:14 PM EDT) Vitamin D 25-OH Total 12.1(L) >30 ng/mL [facility] Comment: Health Based Reference Values*< 20 ??ng/mL ??Gxszcplee18-48 ng/mL ??Insufficient> 30 ??ng/mL ??Sufficient*Efrain ALMAZAN. N Engl J Med. 2007;357:266-280There is no well-established upper level of normal vitamin Dlevels. Some laboratories use 50 ng/mL as an upper limit ofnormal. However, toxicity is patient-dependent and may occurat any level. Careful correlation with the patient'spresentation is necessary and, if there is concern forvitamin D toxicity, treatment should be consideredirrespective of the serum level.Care must be taken in interpreting Vitamin D results fromdifferent laboratories and methodologies. ??Published datademonstrated that results from patients undergoinghemodialysis may show a negative bias when tested withvarious automated 25-OH vitamin D assays when compared toLC- MS/MS.When testing samples from patients whose predominant form ofVitamin D is Vitamin D2, such as patients receiving VitaminD2 supplementation, results that are subtherapeutic shouldbe confirmed with another method such as LC-MS/MS. Blood Venous blood specimen / Unknown 08/17/2024 3:14 PM EDT 08/17/2024 5:37 PM EDT Anthony Ochoa MD LAB BLOOD ORDERABL ES Final Result Performing Organization Address [facility]/ZIP Co de Phone Number [facility] [address] [place] [phone] * (ABNORMAL) TSH W/Reflex to FT4 (08/17/2024 3:14 PM EDT) TSH reflex Free T4 0.27(L) 0.32 - 4.0 uIU/mL [facility] Blood Venous blood specimen / Unknown 08/17/2024 3:14 PM EDT 08/17/2024 5:37 PM EDT Anthony Ochoa MD LAB BLOOD ORDERABL ES Final Result Performing Organization Address [facility] Co de Phone Number [facility] [address] [place] [phone] * (ABNORMAL) CBC auto differential (08/17/2024 3:14 PM EDT) Only the most recent of2 resultswithin the time period is included. White Blood Count 6.1 4.8 - 10.8 X10*3/uL [facility] Red Blood Count 3.64(L) 4.20 - 5.50 X10*6/uL [facility] Hemoglobin 7.8(L) 12.0 - 16.0 g/dl [facility] Hematocrit 25.0(L) 37.0 - 47.0 % [facility] Mean Corpuscular Volume 68.7(L) 80.0 - 98.0 fL [facility] Mean Corpuscular Hemoglobin 21.4(L) 27.0 - 33.0 pg [facility] Mean Corpuscular HGB Conc 31.2 31.0 - 35.0 g/dl [facility] Red Cell Distribution Width 17.6(H) 11.0 - 16.0 % [facility] Platelet Count 428(H) 160 - 400 X10*3/uL [facility] Mean Platelet Volume 10.2 9.4 - 12.3 fL [facility] Neutrophils Percent Auto 61.3 45 - 73 % [facility] Imm Gran Pct Auto 0.5(H) 0.0 - 0.4 % [facility] Lymphocytes Percent Auto 30.1 20 - 40 % [facility] Monocytes Percent Auto 6.7 2 - 11 % [facility] Eosinophils Percent Auto 1.1 0 - 4 % [facility] Basophils Percent Auto 0.3 0 - 2 % [facility] NRBC Pct Auto 0.0 0.0 - 0.2 /100WBC [facility] Neutrophils Absolute Auto 3.7 2.0 - 8.3 x10*3/uL [facility] Imm Gran Abs Auto 0.03 0.00 - 0.03 X10*3/uL [facility] Lymphocytes Absolute Auto 1.8 1.2 - 4.9 X10*3/uL [facility] Monocytes Absolute Auto 0.4 0.1 - 1.2 X10*3/uL [facility] Eosinophils Absolute Auto 0.1 0.0 - 0.4 X10*3/uL [facility] Basophils Absolute Auto 0.0 0.0 - 0.2 X10*3/uL [facility] NRBC Abs Auto 0.000 0.0 - 0.012 X10*3/uL [facility] Blood Venous blood specimen / Unknown 08/17/2024 3:14 PM EDT 08/17/2024 5:37 PM EDT Anthony Ochoa MD LAB BLOOD ORDERABL ES Final Result Performing Organization Address [facility] Co de Phone Number [facility] [address] [place] [phone] * (ABNORMAL) Iron And Total Iron Binding Capacity (08/17/2024 3:14 PM EDT) Only the most recent of2 resultswithin the time period is included. Iron 15(L) 30 - 160 mcg/dL [facility] Total Iron Binding Capacity 346 228 - 428 mcg/dL [facility] Percent Iron Saturation 4(L) 15 - 50 % [facility] Unsaturated Iron Binding 331 ug/dL [facility] Blood Venous blood specimen / Unknown 08/17/2024 3:14 PM EDT 08/17/2024 5:37 PM EDT Anthony Ochoa MD LAB BLOOD ORDERABL ES Final Result Performing Organization Address [facility] Co de Phone Number [facility] [address] [place] [phone] * (ABNORMAL) Comprehensive Metabolic Panel (08/17/2024 3:14 PM EDT) Pathologist [facility] Sodium 140 135 - 145 mmol/L [facility] Potassium 4.2 3.3 - 5.1 mmol/L [facility] Chloride 109(H) 96 - 108 mmol/L [facility] Carbon Dioxide 25 22 - 29 mmol/L [facility] Anion Gap 10(L) 12 - 20 [facility] Urea Nitrogen (BUN) 8(L) 9 - 16 mg/dL [facility] Creatinine, Serum 0.65 0.5 - 1.4 mg/dL [facility] Estimated Glomerular Filt Rate >60 [facility] Comment:Chronic Kidney Disea se: Estimated GFR < 60 mL/min/1.02g7Lhjlns Kidney Disease: Estimated GFR < 15 mL/min/1.73m2 Glucose 87 60 - 115 mg/dL [facility] Calcium 9.0 8.4 - 10.2 mg/dL [facility] Bilirubin, Total 0.4 0.0 - 1.0 mg/dL [facility] Aspartate Amino Transferase 22 5 - 31 U/L [facility] Alanine Aminotransferase 11 0 - 31 U/L [facility] Total Protein 7.5 6.5 - 8.0 g/dL [facility] Albumin Level 3.8 3.5 - 5.0 g/dL [facility] Alkaline Phosphatase 56 39 - 117 U/L [facility] Blood Venous blood specimen / Unknown 08/17/2024 3:14 PM EDT 08/17/2024 5:37 PM EDT us Anthony Ochoa MD LAB BLOOD ORDERABL ES Final Result Performing Organization Address [facility] Co ok Phone Number [facility] [address] [place] [phone] * (ABNORMAL) Ferritin (05/22/2024 10:59 AM EST) Ferritin 8(L) 10 - 250 ng/mL [facility] Blood Venous blood specimen / Unknown 05/22/2024 10:59 AM EST 05/22/2024 2:01 PM EST us Flaca Matthews MD LAB BLOOD ORDERABLES Final Re sult Performing Organization Address City/[facility]/ZIP Co de Phone Number [facility] [address] [place] [phone] * (ABNORMAL) Lipid Panel, Standard (05/22/2024 10:59 AM EST) Triglycerides 135 <150 mg/dL [facility] Comment:Desirable Triglyceri de: less than 150 mg/dLBorderline High Triglyceride 150-199 mg/dLHigh Triglyceride: 200-499 mg/dLVery High Triglyceride: greater than or equal to 5OO mg/dL Cholesterol 183 <200 mg/dL [facility] Comment:Desirable Cholestero l: less than 200 mg/dLBorderline High Cholesterol: 200-239 mg/dLHigh Cholesterol: greater than 239 mg/dL LDL Cholesterol Calculated 109(H) <100 mg/dL [facility] Comment:Desirable LDL: less than 100 mg/dLNear Optimal/Above Optimal LDL: 110- 129 mg/dLBorderline High LDL: 130-159 mg/dLHigh LDL: 160-189 mg/dLVery High LDL: greater than or equal to 190 mg/dL HDL Cholesterol 47 >40 mg/dL [facility] Comment:Desirable HDL: great er than 40 mg/dL Note: This HDL assay may give artificially low results in patients with liver disease. Blood Venous blood specimen / Unknown 05/22/2024 10:59 AM EST 05/22/2024 2:01 PM EST us Flaca Matthews MD LAB BLOOD ORDERABLES Final Re sult [facility] [address] [place] [phone] * Cologuard?? colon cancer screening (02/03/2024 5:45 PM EDT) Cologuard Result Negative Negative 02/09/20 24 6:47 PM EDT [facility] (CLIA #:[id number]) Comment: NEGATIVE TEST RESULT. A negative Cologuard result indicates a low likelihood that a colorectal cancer (CRC) or advanced adenoma (adenomatous polyps with more advanced pre-malignant features) ??is present. The chance that a person with a negative Cologuard test has a colorectal cancer is less than 1 in 1500 (negative predictive value >99.9%) or has an ??advanced adenoma is less than ??5.3% (negative predictive value 94.7%). These data are based on a prospective cross-sectional study of 10,000 individuals at average risk for colorectal cancer who were screened with both Cologuard and colonoscopy. (Cristal Murray al, N Engl J Med 2014;370(14):1286- 1297) The normal value (reference range) for this assay is negative. COLOGUARD RE-SCREENING RECOMMENDATION: Periodic colorectal cancer screening is an important part of preventive healthcare for asymptomatic individuals at average risk for colorectal cancer. ??Following a negative Cologuard result, the [place] [employer] and U.S. Multi-Society Task Force screening guidelines recommend a Cologuard re-screening interval of 3 years. References: [place] [employer] Guideline for Colorectal Cancer Screening: https://www.cancer.org/cancer/xqfiu-vcmxur-cdihse/lxzhccrcm-mrwymropu-xfeywku/ac s-rec ommendations.html.; Gonzalez DK, Woo MCDONOUGH, Javier FuK, Colorectal Cancer Screening: Recommendations for Physicians and Patients from the U.S. Multi-Society Task Force on Colorectal Cancer Screening , Am J Gastroenterology 2017; 112:5585-3898. TEST DESCRIPTION: Composite algorithmic analysis of stool DNA-biomarkers with hemoglobin immunoassay. ?? Quantitative values of individual biomarkers are not reportable and are not associated with individual biomarker result reference ranges. Cologuard is intended for colorectal cancer screening of adults of either sex, 45 years or older, who are at average-risk for colorectal cancer (CRC). Cologuard has been approved for use by the U.S. FDA. The performance of Cologuard was established in a cross sectional study of average-risk adults aged 50-84. Cologuard performance in patients ages 45 to 49 years was estimated by sub-group analysis of near-age groups. Colonoscopies performed for a positive result may find as the most clinically significant lesion: colorectal cancer [4.0%], advanced adenoma (including sessile serrated polyps greater than or equal to 1cm diameter) [20%] or non- advanced adenoma [31%]; or no colorectal neoplasia [45%]. These estimates are derived from a prospective cross-sectional screening study of 10,000 individuals at average risk for colorectal cancer who were screened with both Cologuard and colonoscopy. (Cristal Murray al, N Engl J Med 2014;370(14):8716-8192.) Cologuard may produce a false negative or false positive result (no colorectal cancer or precancerous polyp present at colonoscopy follow up). A negative Cologuard test result does not guarantee the absence of CRC or advanced adenoma (pre-cancer). The current Cologuard screening interval is every 3 years. ([place] [employer] and U.S. Multi-Society Task Force). Cologuard performance data in a 10,000 patient pivotal study using colonoscopy as the reference method can be accessed at the following location: www.[employer]/results. Additional description of the Cologuard test process, warnings and precautions can be found at www.cologMavenir Systemsrd.com. Stool specimen (specimen) 02/03/2024 5:45 PM EDT 02/05/2024 7:29 AM EDT Flaca Matthews MD LAB MOLECULAR DIAGNOSTICS ORD ERABLES Final Result Performing Organization Address City/[facility]/ZIP Co de Phone Number [facility] (CLIA #:[id number]) [address] [place] [address], * Hepatitis C Antibody with Reflex to HCV, RNA, Quantitative, Real-Time PCR (12/22/2023 12:00 AM EDT) Hepatitis C Antibody Nonreactive Nonreactive [facility] Comment:Antibodies to HCV no t detected; does not exclude early acuteHCV infection. Blood Venous blood specimen / Unknown 12/22/2023 12/22/2023 Flaca Matthews MD LAB BLOOD ORDERABLES Final Re sult Performing Organization Address [facility]/ZIP Co de Phone Number [facility] [address] [place] [phone] * HIV-1/2 Antigen and Antibodies, Fourth Generation, with Reflexes (12/22/2023 12:00 AM EDT) HIV AB/AG Nonreactive Nonreactive [facility] Comment:HIV-1 p24 Ag and/or HIV-1/HIV-2 Ab not detected.A test result that is nonreactive does not exclude thepossibility of exposure to or infection with HIV-1 and/orHIV-2. Nonreactive results in this assay for individualswith prior exposure to HIV-1 and/or HIV-2 may be due toantigen and antibody levels that are below the limit ofdetection of this assay.The [employer] HIV Ag/Ab Combo assay result andsupplemental assay results should be interpreted inconjunction with the patient's clinical presentation,history and other laboratory results. If the results areinconsistent with clinical evidence, additional testing issuggested to confirm the result. Blood Venous blood specimen / Unknown 12/22/2023 12/22/2023 us Flaca Matthews MD LAB BLOOD ORDERABLES Final Re sult [facility] [address] [place], [place] [phone] * BI Mammogram Screening Tomosynthesis Bilateral (07/14/2023 8:48 AM EST) Anatomical Region Laterality Modality Breast Bilateral Mammography 07/14/2023 8:48 AM EST Narrative 08/07/2023 7:56 PM EST ? [facility] ? [address] ?[place] [address] ? Mammography Report ? Signed ? Patient: Lyubov Frazier ?MR#: [id number] ? : 1980 ?Acct:[id number] ? Age/Sex: 42 / F ?ADM Date: 07/14/ ? Loc: HO.MAMMO ? Attending Dr: Flaca Matthews MD ? Ordering Physician: Flaca Matthews MD ?Results: 2Beni ?? gn Findings ? Date of Service: 02/07/24 ?Follow Up: 1 Year From Orig ?? inal Mammogram ? Procedure(s): MM tomosynthesis screening BI ?? Accession Number(s): [id number] ? cc: Flaca Matthews MD ? EXAMINATION: ?? MM SCREENING DIGITAL BREAST TOMOSYNTHESIS, BILATERAL ? CLINICAL INFORMATION: ? Screening. Asymptomatic. ? The patient has had a prior bilateral breast reduction. ? COMPARISON: ?? Mammography: This is a baseline mammogram. ? TECHNIQUE: ?? Digital breast tomosynthesis is performed in both the craniocaudal and ?? mediolateral oblique views along with computer-aided detection (CAD). ?? Synthesized 2D images are generated from the tomosynthesis. ? FINDINGS: ?? There are scattered areas of fibroglandular density (ACR BI-RADS breast ?? composition Category b). ? There are no significant masses, abnormal calcifications, or other ?? abnormalities. ? Post reduction changes are present. ? MM/MM tomosynthesis screening BI ?? IMPRESSION: ?? No mammographic evidence of malignancy. ? ASSESSMENT: ? BI-RADS BI-RADS 2 - Benign Findings ? RECOMMENDATION: ?? Routine annual mammography screening. ? 1 year F/U ? This examination should not preclude the clinical evaluation of a ?? suspicious palpable abnormality. ? This patient's information was entered into a reminder system with a ?? target due date for their next mammogram. ? Dictated By: ?Yara Stein MD ? Signed By: ?<Electronically signed by Yara Stein MD in OV> ? 08/07/231952 ? DD/ ? TD/TT: ? [address]elance [address] Reporter: ? Procedure Note Jairon, Image - 08/07/2023 [facility] [address] [place] [address] [place] [address] Mammography Report Signed Patient: Lyubov Frazier DMR#: [id number] : 1980Acct:[id number] Age/Sex: 42 / FADM Date: 07/14/23 Loc: HO.MAMMO Attending Dr: Flaca Matthews MD Ordering Physician: Flaca Matthews MDResults: 2Beni gn Findings Date of Service: 07/14/23Follow Up: 1 Year From Orig ina Mammogram Procedure(s): MM tomosynthesis screening BI Accession Number(s): [id number] cc: Flaca Matthews MD EXAMINATION: MM SCREENING DIGITAL BREAST TOMOSYNTHESIS, BILATERAL CLINICAL INFORMATION: Screening. Asymptomatic. The patient has had a prior bilateral breast reduction. COMPARISON: Mammography: This is a baseline mammogram. TECHNIQUE: Digital breast tomosynthesis is performed in both the craniocaudal and mediolateral oblique views along with computer-aided detection (CAD). Synthesized 2D images are generated from the tomosynthesis. FINDINGS: There are scattered areas of fibroglandular density (ACR BI-RADS breast composition Category b). There are no significant masses, abnormal calcifications, or other abnormalities. Post reduction changes are present. MM/MM tomosynthesis screening BI IMPRESSION: No mammographic evidence of malignancy. ASSESSMENT: BI-RADS BI-RADS 2 - Benign Findings RECOMMENDATION: Routine annual mammography screening. 1 year F/U This examination should not preclude the clinical evaluation of a suspicious palpable abnormality. This patient's information was entered into a reminder system with a target due date for their next mammogram. Dictated By: Yara Stein MD Signed By: <Electronically signed by Yara Stein MD in OV> 08/07/231952 DD/ 0848 TD/TT: Freelance Court Reporter: Flaca Matthews MD IMG BI PROCEDURES Final Resul t * THINPREP TIS PAP AND HPV mRNA E6/E7 REFLEX HPV 16,18/45 (04/11/2021 12:07 PM EDT) Clinical Information: None given [facility] COMMENT SEE COMMENT [facility] Comment: EXPLANATORY NOTE: ? The Pap is a screening test for cervical cancer. It is ?? not a diagnostic test and is subject to false negative ?? and false positive results. It is most reliable when a ?? satisfactory sample, regularly obtained, is submitted ?? with relevant clinical findings and history, and when ?? the Pap result is evaluated along with historic and ?? current clinical information. ?? COMMENT: This Pap test has been evaluated with computer assisted technology. [facility] Resistor Tester: SEE COMMENT [facility] Comment: DCR, CT(ASCP) CT screening location: [address] ??[address] HPV nRNA E6/E7 Not Detected Not Detected [facility] Comment: Methodology: Biometric Fingerprinting Technician-Mediated Amplification This assay detects E6/E7 viral messenger RNA (mRNA) from 14 high-risk HPV types (16,18,31,33,35,39,45,51,52,56,58,59,66,68). ? The analytical performance characteristics of this assay have been determined by [employer]. The modifications have not been cleared or approved by the FDA. This assay has been validated pursuant to the CLIA regulations and is used for clinical purposes. ?? For additional information, please refer to http://education.Yantra/faq/DHB000s6 (This link if provided for information/ educational purposes only.) Interpretation/Re sult: Negative for intraepithelial lesion or malignancy. [facility] LMP: NONE [facility] Prev. BX: NONE [facility] Prev. PAP: NONE [facility] Review Resistor Tester: SEE COMMENT [facility] Comment: NSS, CT(ASCP) CT screening location: [address] ??[phone] SOURCE: None given [facility] Statement Of Adequacy: SEE COMMENT [facility] Comment: Satisfactory for evaluation. Endocervical/transformation zone component present. Age and/or menstrual status not provided 04/11/2021 12:0 7 PM EDT Flaca Matthews MD LAB PATHOLOGY ORDERABLES Liseth martinez Result [facility] [address] [place] [address] * Thinprep Pap And HPV DNA (04/11/2021) 04/11/2021 Narrative Flaca Matthews MD - 08/04/2022 1:59 PM EST NILM +TZ, NHRHPV us Historical Provider MD LAB PATHOLOGY ORDERABLES Final Result from Last 3 Months or Most Recently Relevant to Health Maintenance Insurance [employer] Care Teams Youth Care Professional Relationship Specialty Start Date End Date Flaca Matthews MD [address] [place] [phone] PCP - General Family Medicine 03/05/21
--- OUTSIDE RECORDS SUMMARY | 2024-08-17 18:52 | XMS_ITS | Encounter Summary ---
Author Organization [employer] Address [address] [facility] [address] [place] [address] Care Team Providers Care Optometric Tech Name Role Phone Flaca Matthews MD Primary Care Provider Reason for Visit * Reason Onset Date Comments Referral 04/27/2024 Encounter Details Date Type Department Care Team ([facility] st Contact Info) Description 04/27/2024 Telephone [facility] [address] [place] [address] Flaca Matthews MD [address] [place] [address] Referral Social History Tobacco Use Types Packs/Day [...] encounter Miscellaneous Notes * Telephone Encounter - Flaca Matthews MD - 05/22/2024 2:36 PM EST Can we send her to [facility]? * Telephone Encounter - Caio Phillips - 04/27/2024 10:42 AM EST Tc from [facility] with [facility] calling to inform they won't be able to complete referral for TMJ, she would need to be referred else where. They advised to refer pt to [facility]. If any questions you can contact Boris at [phone]. documented in this encounter Plan of Treatment Not on file documented as of this encounter Visit Diagnoses Not on filedocumented in this encounter Additional Health Concerns Assessment Noted Time PHQ-9 Depression Total Score: 14 023 3:08 PM EST documented as of this encounter Care Teams Optometric Tech Relationship Specialty Start Date End Date Flaca Matthews MD [address] [place] [address] PCP - General Family Medicine 03/05/21 documented as of this encounter
--- OUTSIDE RECORDS SUMMARY | 2024-08-17 18:52 | XMS_ITS | Encounter Summary ---
Author Organization [employer] Address [address] [facility] [address] [place] [address] Care Team Providers Care Plumber'S Helper Name Role Phone Flaca Matthews MD Primary Care Provider [phone] Reason for Visit * Reason Onset Date Comments Nurse Triage 08/15/2024 Encounter Details Date Type Department Care Team ([facility] st Contact Info) Description 08/15/2024 Telephone [facility] [address] [place] [address] Flaca Matthews MD [address] [place] [address] Nurse Triage Social History Tobacco Use Types Packs/Day Years [...] encounter Miscellaneous Notes * Telephone Encounter - Alisa Obrien RN - 08/15/2024 9:14 AM EDT called pt to triage, spoke to pt. pt states increasing headaches and requesting appt. pt reports similar headaches, getting more intense and mor frequent with some mild nausea and light sensitivity. pt states her BP has been higher recently, however cannot remember any numbers and does not have hermonitor right now. pt denies chest pain, sob, numbness, vomiting, fevers, illness symptoms or otherassociated symptoms. given appt tomorrow with [facility] at 2:20 for exam. advised home care: rest, continue Excedrine as needed, lie down, and call back as needed. pt understands and agrees with plan. insurance verified. Protocol Used: Headache (Adult) Protocol-Based Disposition: See in Office or Video Visit Today or Tomorrow Video visit offer not recorded Positive Triage Question: * Moderate headache (e.g., interferes with normal activities) present > 24 hours and unexplained * All higher-acuity triage questions were negative Care Advice Discussed: * Reassurance and Education - Migraine Headache * Pain Medicine for Migraine * Pain Medicines * Pain Medicines - Extra Notes and Warnings * Rest for Migraine Headache * Cold Pack for Headache * Headache Diary * Reasons To Call Back - Severe headache lasts over 2 hours after pain medicine - Headache lasts over 72 hours - Stiff neck occurs (can't touch chin to chest) - You become worse * Telephone Encounter - Mallory Ernesto Irvin - 08/15/2024 8:39 AM EDT Symptoms: Headache, Nausea But No Vomiting, Body Aches Outcome: Schedule an urgent appointment (within 4 hours) or talk to a nurse or provider soon Reason: Started within the past 3 days The caller accepted this outcome. [phone] documented in this encounter Plan of Treatment Not on file documented as of this encounter Visit Diagnoses Not on filedocumented in this encounter Additional Health Concerns Assessment Noted Time PHQ-9 Depression Total Score: 14 023 3:08 PM EST documented as of this encounter Care Teams Plumber'S Helper Relationship Specialty Start Date End Date Flcaa Matthews MD [address] [place] [address] PCP - General Family Medicine 03/05/21 documented as of this encounter
--- OUTSIDE RECORDS SUMMARY | 2024-08-17 18:52 | XMS_ITS | Encounter Summary ---
Author Organization [employer] Address [address] [facility] [address] [place] [address] Care Team Providers Care Mechanical Adjuster Name Role Phone Flaca Matthews MD Primary Care Provider [phone] Reason for Visit * Reason Onset Date Comments Nurse Triage 02/18/2023 Encounter Details Date Type Department Care Team ([facility] st Contact Info) Description 02/18/2023 Telephone [facility] [address] [place] [address] Flaca Matthews MD [address] [place] [address] Nurse Triage Social History Tobacco Use Types Packs/Day Years Used Date Smoking Tobacco: Never Passive Smoke Exposure: Never Smokeless Tobacco: Never Alcohol Use Standard Drinks/Week Comments Never 0 (1 standard drink = 0.6 oz pur e alcohol) Depression Answer Date Recorded Patient Health Questionnaire-9 Score 20 08/04/2022 Depression Answer Date Recorded Patient Health Questionnaire-2 Score 4 08/04/2022 Comments Unknown Sex and Gender Information Value Date Recorded Sex Assigned at Female 04/06/2022 10:15 AM EDT Legal Sex Female 10:15 AM EDT Gender Identity Female 04/06/2022 10:15 AM EDT Sexual Orientation Straight 04/06/2022 10 :15 AM EDT documented as of this encounter Miscellaneous Notes * Telephone Encounter - Tamara Lai RN - 02/18/2023 10:18 AM EDT Triage call Pt reports new onset, right wrist/hand pain. Started 3 weeks ago. 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 Pt reports when opens and closes hand Pt has a sharp, burning pain which shoots to right elbow. Movement always triggers this pain. Pt reports a loss of strength in the hand. Pt reports when holds phone in hand feels like Pt will drop it. Ptdenies numbness. Pt has taken tylenol/motrin without effect. Uses heating pad with some relief of pain. Apt with PCP 02/18/23 @ 345pm. Insurance is verified as active prior to booking. Protocol Used: Hand and Wrist Pain (Adult) Protocol-Based Disposition: See in Office or Video Visit Today Positive Triage Question: * Weakness (i.e., loss of strength) of new-onset in hand or finger (Exception: Not truly weak, handfeels weak because of pain.) * All higher-acuity triage questions were negative Care Advice Discussed: * Reassurance and Education - Hand or Wrist Pain * Pain Medicines * Pain Medicines - Extra Notes and Warnings * Expected Course * Reasons To Call Back - Moderate pain (e.g., interferes with normal activities) lasts more than 3 days - Mild pain lasts more than 7 days - Signs of infection occur (e.g., spreading redness, warmth, fever) - You become worse * Use a Cold Pack for Pain * Use Heat After 48 Hours for Pain * Telephone Encounter - Anna Omega - 02/18/2023 9:58 AM EDT Symptom: Hand or Wrist Pain - Not From Injury Outcome: Schedule an urgent appointment (within 1 hour) or talk to a nurse or provider soon Reason: Can't use the hand normally The caller accepted this outcome Please contact pt at [phone] documented in this encounter Plan of Treatment Not on file documented as of this encounter Visit Diagnoses Not on filedocumented in this encounter Additional Health Concerns Assessment Noted Time PHQ-9 Depression Total Score: 20 08/04/ 023 1:36 PM EST documented as of this encounter Care Teams Mechanical Adjuster Relationship Specialty Start Date End Date Flaca Matthews MD [address] [place] [phone] PCP - General Family Medicine 03/05/21 documented as of this encounter
--- OUTSIDE RECORDS SUMMARY | 2024-08-17 18:52 | XMS_ITS | Encounter Summary ---
Author Organization [employer] Address [address] [facility] [address] [place] [address] Care Team Providers Care Lead Handler Name Role Phone Flaca Matthews MD Primary Care Provider [phone] Encounter Details Date Type Department Care Team ([facility] st Contact Info) Description 08/01/2024 1:00 PM EST Telemedicine [facility] [address], [place] [phone] TaylorAnthony Blank MD [address] [place] [address] Alopecia (Primary Dx) Social History Tobacco Use Types [...] Progress Notes * Anthony Ochoa MD - 08/01/2024 1:00 PM EST Subjective Patient ID: Lyubov Frazier is a 43 y.o. female who presents for No chief complaint on file.. HPI Patient was scheduled for a televisit to evaluate for hair lolss Review of Systems Constitutional: Negative for chills, fatigue and fever. Respiratory: Negative for cough and shortness of breath. Cardiovascular: Negative for chest pain and palpitations. Gastrointestinal: Negative for abdominal distention, blood in stool and constipation. Objective Physical Exam Neurological: General: No focal deficit present. Mental Status: She is oriented to person, place, and time. Psychiatric: Mood and Affect: Mood normal. Behavior: Behavior normal. Assessment/Plan Problem List Items Addressed This Visit None Visit Diagnoses Alopecia - Primary Will send blood work to evaluate for alopecia, if symptoms persist may consider dermatology evaluation in the future Relevant Orders TSH W/Reflex to FT4 CBC auto differential Iron And Total Iron Binding Capacity Vitamin B12 (Cobalamin) and Folate Panel, Serum Vitamin B6 Comprehensive Metabolic Panel Vitamin D, 25-Hydroxy, Total, Immunoassay documented in this encounter Plan of Treatment Scheduled Orders Name Type Priority Associated Diagnoses Orde r Schedule Vitamin B12 (Cobalamin) and Folate Panel, Serum Lab Routine Alopecia Expected: 08/01/2024 (Approximate), Expires: 08/01/2025 Vitamin B6 Lab Routine Alopecia Expected: 08/01/2024, Expires: 08/01/2025 Estradiol Lab Routine Alopecia Expected: 08/01/2024, Expires: 08/01/2025 Progesterone Lab Routine Alopecia Expected: 08/01/2024 (Approximate), Expires: 08/01/2025 Prolactin, Dilution Study Lab Routine Alopecia Expected: 08/01/2024 (Approximate), Expires: 08/01/2025 SAVANNA Screen,IFA, with Reflex to Titer and Pattern Lab Routine Alopecia Expected: 08/01/2024 (Approximate), Expires: 08/01/2025 documented as of this encounter Procedures Procedure Name Priority Date/Time Associated Diagnosis Comments VITAMIN D,25-OH,TOTAL,IA Routine 08/17/2024 3:14 PM EDT Alopecia TSH W/REFLEX TO FT4 Routine 08/17/2024 3 :14 PM EDT Alopecia CBC WITH AUTO DIFFERENTIAL Routine 08/17/2024 3:14 PM EDT Alopecia IRON AND TOTAL IRON BINDING CAPACITY Routine 08/17/2024 3:14 PM EDT Alopecia COMPREHENSIVE METABOLIC PANEL Routine 08/17/2024 3:14 PM EDT Alopecia documented in this encounter Results * (ABNORMAL) Vitamin D, 25-Hydroxy, Total, Immunoassay (08/17/2024 3:14 PM EDT) Vitamin D 25-OH Total 12.1(L) >30 ng/mL [facility] Comment: Health Based Reference Values*< 20 ??ng/mL ??[id number] ng/mL ??Insufficient> 30 ??ng/mL ??Sufficient*Efrain ALMAZAN. N [...] MD LAB BLOOD ORDERABL ES Final Result [facility] [address] [place] [phone] * (ABNORMAL) Comprehensive Metabolic Panel (08/17/2024 3:14 PM EDT) Sodium 140 135 - 145 mmol/L [facility] Potassium 4.2 3.3 - 5.1 mmol/L [facility] Chloride 109(H) 96 - 108 mmol/L [facility] Carbon Dioxide 25 22 - 29 mmol/L [facility] Anion Gap 10(L) 12 - 20 [facility] Urea Nitrogen (BUN) 8(L) 9 - 16 mg/dL [facility] Creatinine, Serum 0.65 0.5 - 1.4 mg/dL [facility] Estimated Glomerular Filt Rate >60 [facility] Comment:Chronic Kidney Disea se: Estimated GFR < 60 mL/min/1.38e1Esdyjw Kidney Disease: Estimated GFR < 15 mL/min/1.73m2 Glucose 87 60 - 115 mg/dL [facility] Calcium 9.0 8.4 - 10.2 mg/dL [facility] Bilirubin, Total 0.4 0.0 - 1.0 mg/dL [facility] Aspartate Amino Transferase 22 5 - 31 U/L [facility] Alanine Aminotransferase 11 0 - 31 U/L [facility] Total Protein 7.5 6.5 - 8.0 g/dL [facility] Albumin Level 3.8 3.5 - 5.0 g/dL [facility] Alkaline Phosphatase 56 39 - 117 U/L [facility] Blood Venous blood specimen / Unknown 08/17/2024 3:14 PM EDT 08/17/2024 5:37 PM EDT Anthony Ochoa MD LAB BLOOD ORDERABL ES Final Result Performing Organization Address [facility] Co de Phone Number [facility] [address] [place] [phone] * (ABNORMAL) Iron And Total Iron Binding Capacity (08/17/2024 3:14 PM EDT) Iron 15(L) 30 - 160 mcg/dL [facility] Total Iron Binding Capacity 346 228 - 428 mcg/dL [facility] Percent Iron Saturation 4(L) 15 - 50 % [facility] Unsaturated Iron Binding 331 ug/dL [facility] Blood Venous blood specimen / Unknown 08/17/2024 3:14 PM EDT 08/17/2024 5:37 PM EDT Anthony Ochoa MD LAB BLOOD ORDERABL ES Final Result Performing Organization Address [facility]/ZIP Co de Phone Number [facility] [address] [place] [phone] * (ABNORMAL) CBC auto differential (08/17/2024 3:14 PM EDT) White Blood Count 6.1 4.8 - 10.8 X10*3/uL [facility] Red Blood Count 3.64(L) 4.20 - 5.50 X10*6/uL [facility] Hemoglobin 7.8(L) 12.0 - 16.0 g/dl [facility] Hematocrit 25.0(L) 37.0 - 47.0 % [facility] Mean Corpuscular Volume 68.7(L) 80.0 - 98.0 fL [facility] Mean Corpuscular Hemoglobin 21.4(L) 27.0 - 33.0 pg [facility] Mean Corpuscular HGB Conc 31.2 31.0 - 35.0 g/dl [facility] Red Cell Distribution Width 17.6(H) 11.0 - 16.0 % [facility] Platelet Count 428(H) 160 - 400 X10*3/uL [facility] Mean Platelet Volume 10.2 9.4 - 12.3 fL [facility] Neutrophils Percent Auto 61.3 45 - 73 % [facility] Imm Gran Pct Auto 0.5(H) 0.0 - 0.4 % [facility] Lymphocytes Percent Auto 30.1 20 - 40 % [facility] Monocytes Percent Auto 6.7 2 - 11 % [facility] Eosinophils Percent Auto 1.1 0 - 4 % [facility] Basophils Percent Auto 0.3 0 - 2 % [facility] NRBC Pct Auto 0.0 0.0 - 0.2 /100WBC [facility] Neutrophils Absolute Auto 3.7 2.0 - 8.3 x10*3/uL [facility] Imm Gran Abs Auto 0.03 0.00 - 0.03 X10*3/uL [facility] Lymphocytes Absolute Auto 1.8 1.2 - 4.9 X10*3/uL [facility] Monocytes Absolute Auto 0.4 0.1 - 1.2 X10*3/uL [facility] Eosinophils Absolute Auto 0.1 0.0 - 0.4 X10*3/uL [facility] Basophils Absolute Auto 0.0 0.0 - 0.2 X10*3/uL [facility] NRBC Abs Auto 0.000 0.0 - 0.012 X10*3/uL [facility] Blood Venous blood specimen / Unknown 08/17/2024 3:14 PM EDT 08/17/2024 5:37 PM EDT us Anthony Ochoa MD LAB BLOOD ORDERABL ES Final Result Performing Organization Address [facility]/ZIP Co de Phone Number [facility] [address] [place] [phone] * (ABNORMAL) TSH W/Reflex to FT4 (08/17/2024 3:14 PM EDT) TSH reflex Free T4 0.27(L) 0.32 - 4.0 uIU/mL [facility] Blood Venous blood specimen / Unknown 08/17/2024 3:14 PM EDT 08/17/2024 5:37 PM EDT us Anthony Ochoa MD LAB BLOOD ORDERABL ES Final Result Performing Organization Address [facility] Co de Phone Number [facility] [address] [place] [phone] documented in this encounter Visit Diagnoses Diagnosis Alopecia- Primary documented in this encounter Additional Health Concerns Assessment Noted Time PHQ-9 Depression Total Score: 14 05/18/ 023 3:08 PM EST documented as of this encounter Care Teams Lead Handler Relationship Specialty Start Date End Date Flaca Matthews MD [address] [place] [address] PCP - General Family Medicine 03/05/21 documented as of this encounter
--- OUTSIDE RECORDS SUMMARY | 2024-08-17 18:52 | XMS_ITS | Encounter Summary ---
Author Organization [employer] Address [address] [facility] [address] [place] [address] Care Team Providers Care Grape Pruner Name Role Phone Flaca Matthews MD Primary Care Provider [phone] Reason for Visit * Reason Comments Med Refill Encounter Details Date Type Department Care Team ([facility] Contact Info) Description 03/30/2023 Refill [facility] DIABETES/NUTRITION [address] [place] [address] Flaca Matthews MD [address] [place] [phone] Social History Tobacco Use Types Packs/Day Years [...] Patient Health Questionnaire-2 Score 4 08/04/2022 Comments No Sex and Gender Information Value [...] documented as of this encounter Care Teams Grape Pruner Relationship Specialty Start Date End Date Flaca Matthews MD [address] [place] [address] PCP - General Family Medicine 03/05/21 documented as of this encounter
--- OUTSIDE RECORDS SUMMARY | 2024-08-17 18:52 | XMS_ITS | Encounter Summary ---
Author Organization [employer] Address [address] [place] [address] Care Team Providers Care Financial Coach Name Role Phone Flaca Matthews MD Primary Care Provider [phone] Encounter Details Date Type Department Care Team (Latest Contact Info) Description 08/01/2024 Travel Social History Tobacco Use Types Packs/Day [...] documented as of this encounter Care Teams Financial Coach Relationship Specialty Start Date End Date Flaca Matthews MD [address] [place] [phone] PCP - General Family Medicine 03/05/21 documented as of this encounter
[2024-08-17 18:54] LABS: Folate 10.4 ng/mL (> or = 4.0); Vitamin B12 467 pg/mL (200-900)
[2024-08-17 19:26] LABS: Free T4 (Free Thyroxine) 0.98 ng/dL (0.71-1.85)
[2024-08-18 06:17] LABS: Progesterone Immunoassay <0.5 ng/mL
[2024-08-18 23:09] LABS: Prolactin Undiluted 10.3 ng/mL
[2024-08-22 00:03] LABS: Vitamin B6 9.6 ng/mL (2.1-21.7)
[2024-08-23 09:38] LABS: Anti Nuclear Antibody Screen NEGATIVE (NEGATIVE)
[2024-08-29 03:08] LABS: Estradiol Ultra Sensitive 67 pg/mL
== END 2024-08-17 15:12 | disposition home or self-care (01) ==
LOC: HO.CHCLDS 15:11
PROVIDERS: Visit Provider Internal Medicine
DX: L65.9 Nonscarring hair loss, unspecified (principal)
CPT/HCPCS: 36415; 80053; 82306; 82607; 82670; 82746; 83540; 84144; 84146; 84207; 84439; 84443; 85025; 86038

== ENCOUNTER → 2024-08-22 10:36 | Outpatient (BNV) | payer MEDICAID, SELFPAY | PROVIDERS: PCP Family Medicine; Referring Provider Internal Medicine; Visit Provider Internal Medicine | DX: D50.9 Iron deficiency anemia, unspecified (principal) | CPT/HCPCS: 99204 ==

== ENCOUNTER → 2025-03-01 13:41 | Outpatient (RCR) | payer MEDICAID, SELFPAY ==
[2025-01-17 13:05] VITALS: BP 155/91; PULSE 87; RESP 16; TEMP 36.6; O2SAT 99
[2025-01-17] MEDS: 0.9 % Sodium Chloride Flush 10 ML SYRINGE 5 ML IVFLUSH (13:28)
[2025-01-24 14:45] VITALS: BP 153/99; PULSE 98; RESP 16; TEMP 36.7; O2SAT 98
[2025-01-31 12:34] VITALS: BP 138/92; PULSE 78; RESP 16; TEMP 36.8; O2SAT 99
[2025-02-15 15:01] VITALS: BP 142/92; PULSE 84; RESP 16; TEMP 36.3; O2SAT 100
[2025-02-22 14:59] VITALS: BP 150/86; PULSE 91; RESP 18; TEMP 36.4
[2025-03-01 13:17] VITALS: BP 150/87; PULSE 84; RESP 16; TEMP 36.6; O2SAT 98
== END | disposition home or self-care (01) ==
LOC: HO.INF 01-17 12:41
PROVIDERS: Visit Provider Internal Medicine
DX: D50.9 Iron deficiency anemia, unspecified (principal)
CPT/HCPCS: 96365; 96374; J1756

== ENCOUNTER 2025-04-17 11:38 | Outpatient (REF) | payer MEDICAID, SELFPAY ==
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
--- OUTSIDE RECORDS SUMMARY | 2025-04-17 13:41 | XMS_ITS | Clinical Summary ---
Author Organization [facility] Address [address] [place] [address] Phone Care Team Providers Care Coping Machine Assembler Name Role Phone Flaca Matthews MD Primary Care Provider [phone] Allergies Active Allergy Reactions Criticality Noted Date Comments Ciprofloxacin 04/12/2025 Morphine 04/12/2025 Ibuprofen 04/12/2025 Sulfa (Sulfonamide Antibiotics) 11/2024 Encounters Date Type Department Care Team Description 04/12/2025 3:38 PM EST - 04/12/2025 4:[address] [facility] Emergency [address] [place] [address] Logan Tejeda MD Contusion of left shoulder, initial encounter (Primary Dx); Contusion of left hip, initial encounter; Contusion of left knee, initial encounter Discharge Disposition: Home or Self Care from Last 3 Months Medical History Medical History Date Comments Hypertension Social History Tobacco Use Types Packs/Day Years Used Date Smoking Tobacco: Never Assessed Comments No Sex and Gender Information Value Date Recorded Sex Assigned at Not on file Legal Sex Female 11:07 AM EDT Gender Identity Not on file Sexual Orientation Not on file Obstetrics History Last Filed Vital Signs Vital Sign Reading [...] Mass Index 37.91 04/12/2025 3:23 PM EST Plan of Treatment Health Maintenance Due Date Last Done Comments Breast Cancer Screening 1978 Pneumococcal Vaccine: Pediatrics (0 to 5 Years) and At-Risk Patients (6 to 49 Years) (1 of 2 - PCV) 1997 Cervical Cancer Screening: Pap Smear 09/26/1999 Hepatitis B Vaccines (3 of 3 - 19+ 3-dose series) 04/26/2019 01/13/2019, 10/24/2018 Social Influencers of Health Screening 02/02/2024 Depression Screening 06/07/2024 COVID-19 Vaccine ( season) 2025 04/10/2021, 03/20/2021 Influenza Vaccine (#1) 2025 9, 02/17/2017, 05/16/2015, Additional history exists DTaP,Tdap,and Td Vaccines (7 - Td or Tdap) 02/14/2025 02/14/2015, 09/30/1993, 11/05/1987, Additional history exists Hypertension/CHF/CAD Annual BMP Blood Test 04/12/2025 Colorectal Cancer Screening: FIT-DNA (Cologuard) 02/02/2027 02/03/2024 Cholesterol Screening (Lipid Panel) 05/22/2029 05/22/2024 RSV Immunization Adult Patients (1 - 1-dose 75+ series) 2053 IPV Vaccines Completed 11/05/1987, 02/05, 02/07/1981, Additional history exists MMR Vaccines Completed 01/05/1993, 12/1990, 10/06/1987, Additional history exists Hepatitis A Vaccines Aged Out 10/24/2018 No long er eligible based on patient's age to complete this topic HIV Screening Completed 12/22/2023 Hepatitis C Screening Completed 12/22/2023 HIB Vaccines Aged Out No longer eligi ble based on patient's age to complete this topic HPV Vaccines Aged Out No longer eligi ble based on patient's age to complete this topic Meningococcal ACWY Vaccine Aged Out N o longer eligible based on patient's age to complete this topic Meningococcal B Vaccine Aged Out No l onger eligible based on patient's age to complete this topic RSV Immunization Patients Under 20 months Aged Out No longer eligible based on patient's age to complete this topic Varicella Vaccines Aged Out No longer eligible based on patient's age to complete this topic Insurance MEDICAID - [place] Care Teams Coping Machine Assembler Relationship Specialty Start Date End Date Flaca Matthews MD [address] [place] [address] PCP - General 03/29/23
--- OUTSIDE RECORDS SUMMARY | 2025-04-17 13:41 | XMS_ITS | Encounter Summary ---
Author Organization [employer] Address [address] [facility] [address] [place] [address] Care Team Providers Care Paraprofessional Interpreter Name Role Phone Flaca Matthews MD Primary Care Provider [phone] Reason for Visit * Reason Onset Date Comments Referral 04/27/2024 Encounter Details Date Type Department Care Team ([facility] Contact Info) Description 04/27/2024 Telephone [facility] [address] [place] [address] lFaca Matthews MD [address] [place] [phone] Referral Social History Tobacco Use Types Packs/Day [...] PM EST Can we send her to [facility]? * Telephone Encounter - Caio Phillips - 04/27/2024 10:42 AM EST Tc from [facility] with [facility] calling to inform they won't be able to complete referral for TMJ, she would need to be referred else where. They advised to refer pt to [facility]. If any questions you can contact Boris at [phone]. documented in this encounter Plan of Treatment Upcoming Encounters Date Type Department Care Team (Late st Contact Info) Description 04/18/2025 1:00 PM EST Office Visit [facility] ADULT DENTAL [address] [place] [address] Mo Del Rio DMD [address] [place] [address] 05/10/2025 3:15 PM EST Office Visit [facility] MED & PEDS [address] [place] [address] Flaca Matthews MD [address] [place] [address] documented as of this encounter Visit Diagnoses Not on filedocumented in this encounter Additional Health Concerns Assessment Noted Time PHQ-9 Depression Total Score: 14 023 3:08 PM EST documented as of this encounter Care Teams Paraprofessional Interpreter Relationship Specialty Start Date End Date Flaca Matthews MD [address] [place] [address] PCP - General Family Medicine 03/05/21 documented as of this encounter
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
--- OUTSIDE RECORDS SUMMARY | 2025-04-17 13:41 | XMS_ITS | Encounter Summary ---
Author Organization [employer] Address [address] 7[address] [place] [address] Care Team Providers Care Hearing Aid Assistant Name Role Phone Flaca Matthews MD Primary Care Provider [phone] Reason for Visit * Reason Comments Med Refill Encounter Details Date Type Department Care Team ([facility] Contact Info) Description 11/12/2024 Refill [facility] MED & PEDS [address] [place], [place] [phone] Anthony Vazquez MD [address] [place] [address] Social History Tobacco Use Types Packs/Day Years [...] as of this encounter Plan of Treatment Upcoming Encounters Date Type Department Care Team (Late st Contact Info) Description 04/18/2025 1:00 PM EST Office Visit [facility] ADULT DENTAL [address] [place] [address] Mo Del Rio DMD [address] [place] [address] 05/10/2025 3:15 PM EST Office Visit [facility] MED & PEDS [address] [place] [address] Flaca Matthews MD [address] [place] [address] documented as of this encounter Visit Diagnoses Not on filedocumented in this encounter Additional Health Concerns Assessment Noted Time PHQ-9 Depression Total Score: 14 023 3:08 PM EST documented as of this encounter Care Teams Hearing Aid Assistant Relationship Specialty Start Date End Date Flaca Matthews MD [address] [place] [address] PCP - General Family Medicine 03/05/21 documented as of this encounter
--- OUTSIDE RECORDS SUMMARY | 2025-04-17 13:41 | XMS_ITS | Encounter Summary ---
Author Organization [employer] Address [address] [facility] 7t [place] [address] Care Team Providers Care Oven Worker Name Role Phone Flaca Matthews MD Primary Care Provider [phone] Reason for Visit * Reason Comments Med Refill Encounter Details Date Type Department Care Team ([facility] st Contact Info) Description 03/30/2023 Refill [facility] DIABETES/NUTRITION [address] [place] [address] Flaca Matthews MD [address] [place] [address] Social History Tobacco Use Types Packs/Day Years [...] Description 04/18/2025 1:00 PM EST Office Visit [facility] ADULT DENTAL [address] [place] [address] Mo Del Rio DMD [address] [place] [address] 05/10/2025 3:15 PM EST Office Visit [facility] MED & PEDS [address] [place] [address] Flaca Matthews MD [address] [place] [address] documented as of this encounter Visit Diagnoses Not on filedocumented in this encounter Additional Health Concerns Assessment Noted Time PHQ-9 Depression Total Score: 20 023 1:36 PM EST documented as of this encounter Care Teams Oven Worker Relationship Specialty Start Date End Date Flaca Matthews MD [address] [place] [address] PCP - General Family Medicine 03/05/21 documented as of this encounter
--- OUTSIDE RECORDS SUMMARY | 2025-04-17 13:41 | XMS_ITS | Encounter Summary ---
Author Organization [employer] Address [address] [facility] [address] 7[address] [place] [address] Care Team Providers Care Shower Room Attendant Name Role Phone Flaca Matthews MD Primary Care Provider [phone] Encounter Details Date Type Department Care Team (Latest Contact Info) Description 04/16/2025 Travel Social History Tobacco Use Types Packs/Day [...] Description 04/18/2025 1:00 PM EST Office Visit [facility] ADULT DENTAL [address] [place] [address] Mo Del Rio DMD [address] [place] [address] 05/10/2025 3:15 PM EST Office Visit [facility] MED & PEDS [address] [place] [address] Flaca Matthews MD [address] [place] [address] documented as of this encounter Visit Diagnoses Not on filedocumented in this encounter Additional Health Concerns Assessment Noted Time PHQ-9 Depression Total Score: 14 023 3:08 PM EST documented as of this encounter Care Teams Shower Room Attendant Relationship Specialty Start Date End Date Flaca Matthews MD [address] [place] [phone] PCP - General Family Medicine 03/05/21 documented as of this encounter
--- OUTSIDE RECORDS SUMMARY | 2025-04-17 13:41 | XMS_ITS | Encounter Summary ---
Author Organization [employer] Address [address] [facility] 7t [place] [address] Care Team Providers Care Barbering Teacher Name Role Phone Flaca Matthews MD Primary Care Provider [phone] Reason for Visit * Reason Comments Med Refill Encounter Details Date Type Department Care Team ([facility] st Contact Info) Description 03/27/2023 Refill [facility] DIABETES/NUTRITION [address] [place] [address] Flaca Matthews MD [address] [place] [address] Social History Tobacco Use Types Packs/Day Years [...] Description 04/18/2025 1:00 PM EST Office Visit [facility] ADULT DENTAL [address] [place] [address] Mo Del Rio DMD [address] [place] [address] 05/10/2025 3:15 PM EST Office Visit [facility] MED & PEDS [address] [place] [address] Flaca Matthews MD [address] [place] [address] documented as of this encounter Visit Diagnoses Not on filedocumented in this encounter Additional Health Concerns Assessment Noted Time PHQ-9 Depression Total Score: 20 023 1:36 PM EST documented as of this encounter Care Teams Barbering Teacher Relationship Specialty Start Date End Date Flaca Matthews MD [address] [place] [address] PCP - General Family Medicine 03/05/21 documented as of this encounter
--- OUTSIDE RECORDS SUMMARY | 2025-04-17 13:41 | XMS_ITS | Encounter Summary ---
Author Organization [employer] Address [address] [facility] [address] 7[address] [place] [address] Care Team Providers Care Sheriff Detective Name Role Phone Flaca Matthews MD Primary Care Provider [phone] Reason for Visit * Reason Onset Date Comments Referral 03/31/2024 Encounter Details Date Type Department Care Team ([facility] Contact Info) Description 03/31/2024 Telephone [facility] MEDICINE [address] [place] [address] Flaca Matthews MD [address] [place] [address] Referral Social History Tobacco Use Types Packs/Day [...] TMJ , Pt will like a callback [phone] documented in this encounter Plan of Treatment Upcoming Encounters Date Type Department Care Team (Late st Contact Info) Description 04/18/2025 1:00 PM EST Office Visit [facility] ADULT DENTAL [address] [place] [address] Mo Del Rio DMD [address] [place] [address] 05/10/2025 3:15 PM EST Office Visit [facility] CHC MED & PEDS [address] [place] [address] Flaca Matthews MD [address] [place], [place] [phone] documented as of this encounter Visit Diagnoses Not on filedocumented in this encounter Additional Health Concerns Assessment Noted Time PHQ-9 Depression Total Score: 14 023 3:08 PM EST documented as of this encounter Care Teams Sheriff Detective Relationship Specialty Start Date End Date Flaca Matthews MD [address] [place] [phone] PCP - General Family Medicine 03/05/21 documented as of this encounter
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
[2025-04-17 13:44] LABS: MANUAL DIFF FLAG NO
[2025-04-17 13:51] LABS: Hematocrit 34.4 % (37.0-47.0); Hemoglobin 11.7 g/dl (12.0-16.0); Imm Gran Abs Auto 0.02 X10*3/uL (0.00-0.03); Imm Gran Pct Auto 0.3 % (0.0-0.4); Lymphocytes Absolute Auto 1.5 X10*3/uL (1.2-4.9); Mean Corpuscular HGB Conc 34.0 g/dl (31.0-35.0); Mean Corpuscular Hemoglobin 28.1 pg (27.0-33.0); Mean Corpuscular Volume 82.7 fL (80.0-98.0); NRBC Abs Auto 0.000 X10*3/uL (0.0-0.012); NRBC Pct Auto 0.0 /100WBC (0.0-0.2); Platelet Count 303 X10*3/uL (160-400); Red Blood Count 4.16 X10*6/uL (4.20-5.50); White Blood Count 6.6 X10*3/uL (4.8-10.8)
[2025-04-17 14:03] LABS: Alanine Aminotransferase 16 U/L (0-31); Albumin Level 4.2 g/dL (3.5-5.0); Alkaline Phosphatase 49 U/L (39-117); Anion Gap 10 (12-20); Aspartate Amino Transferase 19 U/L (5-31); Blood Urea Nitrogen 8 mg/dL (9-16); Calcium 9.4 mg/dL (8.4-10.2); Carbon Dioxide 28 mmol/L (22-29); Chloride 105 mmol/L (96-108); Estimated Glomerular Filt Rate > 60; Lipase 19 U/L (8-78); Potassium 4.1 mmol/L (3.3-5.1); Sodium 139 mmol/L (135-145); Total Protein 7.3 g/dL (6.5-8.0)
== END 2025-04-17 11:39 | disposition home or self-care (01) ==
LOC: HO.HHCL 11:38
PROVIDERS: PCP Family Medicine; Referring Provider Family Medicine; Visit Provider Internal Medicine
DX: M17.12 Unilateral primary osteoarthritis, left knee (principal); M54.41 Lumbago with sciatica, right side; M70.62 Trochanteric bursitis, left hip; M75.81 Other shoulder lesions, right shoulder; M75.82 Other shoulder lesions, left shoulder; R10.11 Right upper quadrant pain
CPT/HCPCS: 36415; 72110; 73030; 73502; 73564; 80053; 83690; 85025

== ENCOUNTER → 2025-04-17 11:53 | Outpatient (BNV) | payer MEDICAID, SELFPAY | PROVIDERS: PCP Family Medicine; Referring Provider Family Medicine; Visit Provider Radiology Diagnostic Radiology | DX: M54.50 Low back pain, unspecified (principal); M47.816 Spondylosis without myelopathy or radiculopathy, lumbar region; M25.562 Pain in left knee; M25.522 Pain in left elbow; M25.512 Pain in left shoulder; M25.511 Pain in right shoulder; V89.2XXA Person injured in unspecified motor-vehicle accident, traffic, initial encounter | CPT/HCPCS: 72110; 73030; 73502; 73564 ==

== ENCOUNTER 2025-05-28 08:02 | Outpatient (REF) | payer MEDICAID, SELFPAY ==
--- NOTE | ~2025-05-28 | US_ITS ---
CLINICAL HISTORY: COLICKY RT UPPER QUAD PAIN, S P JEFF US abdomen limited Comparison: None provided Findings: The visualized pancreas, aorta, and inferior vena cava are unremarkable. The liver is normal in size, right lobe length is 14.8 cm. Mildly echogenic liver parenchyma, no hepatic lesion is seen. No bile duct dilatation. Common duct 7 mm diameter. Status post cholecystectomy. Main portal vein shows antegrade flow. Right renal unilocular thin wall cyst with thin septation 2.0 x 1.7 x 1.8 cm in the midpole, avascular. Right kidney is otherwise normal, 11.3 cm in length. No free fluid in the right upper quadrant of the abdomen. Impression: 1. Echogenic liver parenchyma, non-specific, can be accentuated by body habitus, technique or related to parenchymal liver disease. 2. Right renal minimally complex cyst. This document has been electronically signed by: Beth Zavaleta MD on 05/29/2025 12:50:22
--- NOTE | ~2025-05-28 | US_ITS ---
CLINICAL HISTORY: abn uterine bleeding, HX fibroids, palpated to umbilicus US pelvis transvaginal Comparison: None provided Findings: Transvaginal scanning performed. Anteverted uterus is 19.2 cm length. Endometrium not visualized due to obscuration by numerous uterine fibroids. In the midbody of the myometrium there is a 10.9 x 8.4 x 11.7 cm mass, likelyuterine fibroid. Per translator deaf history this fibroid previously measured 4.1 x 3.6 x 3.2 cm, however comparisons are not available to this content writer. In the left fundus there is a 4.2 x 2.9 x 2.3 cm mass, likely uterine fibroid. Previously this structure measured 4.5 x 3.6 x 4.4 cm by translator deaf history. Right ovary 2.2 x 1.7 x 2.2 cm. Left ovary 3.9 x 2.4 x 2.7 cm. Normal color Doppler of both ovaries. Normal grayscale appearance of both ovaries. No free fluid. IMPRESSION: 1. Enlarged uterus containing 2 masses which may be uterine fibroids. The largest mass has significantly increased from prior, via translator deaf history, and measures 10.9 x 8.4 x 11.7 cm. Endometrium not well visualized due to large uterine masses obscuring. 2. Normal appearance of the ovaries. This document has been electronically signed by: George Naranjo MD on 05/28/2025 23:20:17
--- OUTSIDE RECORDS SUMMARY | 2025-05-28 08:06 | XMS_ITS | Clinical Summary ---
Author Organization [facility] Address [address] [place] [address] Phone Care Team Providers Care Email Operations Manager Name Role Phone Flaca Matthews MD Primary Care Provider [phone] Allergies Active Allergy Reactions Criticality Noted Date Comments Ciprofloxacin 04/12/2025 Morphine 04/12/2025 Ibuprofen 04/12/2025 Sulfa (Sulfonamide Antibiotics) 11/2024 Encounters Date Type Department Care Team Description 04/12/2025 3:38 PM EST - 04/12/2025 4:39 PM EST Emergency [facility] Emergency [address] [place] [address] Logan Tejeda MD Contusion of [...] on file Sexual Orientation Not on file Last Filed Vital Signs Vital Sign Reading [...] 02/02/2024 Depression Screening 06/07/2024 COVID-19 Vaccine ( - 2024- season) 2025 04/10/2021, 03/20/2021 Influenza Vaccine (#1) [...] topic Insurance MEDICAID - [place] Care Teams Email Operations Manager Relationship Specialty Start Date End Date Flaca Matthews MD [address] [place] [address] PCP - General 03/29/23
--- OUTSIDE RECORDS SUMMARY | 2025-05-28 08:06 | XMS_ITS | Encounter Summary ---
Author Organization [employer] Address [address] [place] [address] Care Team Providers Care Edger Machine Setter Name Role Phone Flaca Matthews MD Primary Care Provider [phone] Reason for Visit * Reason Onset Date Comments Referral 04/27/2024 Encounter Details Date Type Department Care Team ([facility] Contact Info) Description 04/27/2024 Telephone [facility] MEDICINE [address] [place] [address] Flaca Matthews MD [address] [place] [phone] Referral Social History Tobacco Use Types Packs/Day [...] PM EST [place] we [place] [facility] [place] * Telephone Encounter - Caio Phillips - 04/27/2024 10:42 AM EST Tc from [facility] with [facility] calling to inform they won't be able to complete referral for TMJ, she would need to be referred else where. They advised to refer pt to [facility]. If any questions you can contact Boris at [phone]. documented in this encounter Plan of Treatment Upcoming Encounters Date Type Department Care Team (Late st Contact Info) Description 06/27/2025 3:45 PM EST Office Visit [facility] [address] [place] [address] Flaca Matthews MD [address] [place] [address] documented as of this encounter Visit Diagnoses Not on filedocumented in this encounter Additional Health Concerns Assessment Noted Time PHQ-9 Depression Total Score: 14 023 3:08 PM EST documented as of this encounter Care Teams Edger Machine Setter Relationship Specialty Start Date End Date Flaca Matthews MD [address] [place] [address] PCP - General Family Medicine 03/05/21 documented as of this encounter
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
--- OUTSIDE RECORDS SUMMARY | 2025-05-28 08:06 | XMS_ITS | Encounter Summary ---
Author Organization [employer] Address [address] [facility] 7t [place] [address] Care Team Providers Care Sales Representative Meats Name Role Phone Flaca Matthews MD Primary Care Provider [phone] Reason for Visit * Reason Comments Med Refill Encounter Details Date Type Department Care Team ([facility] Contact Info) Description 11/12/2024 Refill [facility] [address] [place], [place] [phone] Anthony Vazquez MD [address] [place] [address] Social History Tobacco Use Types Packs/Day Years [...] Description 06/27/2025 3:45 PM EST Office Visit [facility] PEDS [address] [place] [address] Flaca Matthews MD [address] [place] [address] documented as of this encounter Visit Diagnoses Not on filedocumented in this encounter Additional Health Concerns Assessment Noted Time PHQ-9 Depression Total Score: 14 023 3:08 PM EST documented as of this encounter Care Teams Sales Representative Meats Relationship Specialty Start Date End Date Flaca Matthews MD [address] [place] [address] PCP - General Family Medicine 03/05/21 documented as of this encounter
--- OUTSIDE RECORDS SUMMARY | 2025-05-28 08:06 | XMS_ITS | Encounter Summary ---
Author Organization [employer] Address [address] [facility] 7t [place] [address] Care Team Providers Care Plant Quality Manager Name Role Phone Flaca Matthews MD Primary Care Provider [phone] Reason for Visit * Reason Comments Med Refill Encounter Details Date Type Department Care Team ([facility] st Contact Info) Description 03/30/2023 [facility]ill [facility] [address] [place] [address] Flaca Matthews MD [address] [place] [address] Social History Tobacco Use Types Packs/Day Years [...] Description 06/27/2025 3:45 PM EST Office Visit [facility] [address] [place] [address] Flaca Matthews MD [address] [place] [address] documented as of this encounter Visit Diagnoses Not on filedocumented in this encounter Additional Health Concerns Assessment Noted Time PHQ-9 Depression Total Score: 20 023 1:36 PM EST documented as of this encounter Care Teams Plant Quality Manager Relationship Specialty Start Date End Date Flaca Matthews MD [address] [place] [address] PCP - General Family Medicine 03/05/21 documented as of this encounter
--- OUTSIDE RECORDS SUMMARY | 2025-05-28 08:06 | XMS_ITS | Encounter Summary ---
Author Organization [employer] Address [address] [facility] [address] [place] [address] Care Team Providers Care Casing Cooker Name Role Phone Flaca Matthews MD Primary Care Provider [phone] Reason for Visit * Reason Onset Date Comments Referral 03/31/2024 Encounter Details Date Type Department Care Team ([facility] Contact Info) Description 03/31/2024 Telephone [facility] [address] [place] [address] Flaca Matthews MD [address] [place] [phone] Referral Social History Tobacco Use Types Packs/Day [...] TMJ , Pt will like a callback [phone] documented in this encounter Plan of Treatment Upcoming Encounters Date Type Department Care Team (Late st Contact Info) Description 06/27/2025 3:45 PM EST Office Visit [facility] & PEDS [address] [place] [address] Flaca Matthews MD [address] [place] [address] documented as of this encounter Visit Diagnoses Not on filedocumented in this encounter Additional Health Concerns Assessment Noted Time PHQ-9 Depression Total Score: 14 023 3:08 PM EST documented as of this encounter Care Teams Casing Cooker Relationship Specialty Start Date End Date Flaca Matthews MD [address] [place] [address] PCP - General Family Medicine 03/05/21 documented as of this encounter
--- OUTSIDE RECORDS SUMMARY | 2025-05-28 08:06 | XMS_ITS | Encounter Summary ---
Author Organization [employer] Address [address] [facility] [address] 7[address] [place] [address] Care Team Providers Care Construction Site Manager Name Role Phone Flaca Matthews MD Primary Care Provider [phone] Encounter Details Date Type Department Care Team (Latest Contact Info) Description 04/18/2025 Results Follow-Up [facility]S [address] [place], [place] [phone] Flaca Matthews MD [address] [place] [address] CBC auto differential, Comprehensive Metabolic Panel, Lipase Social History Tobacco Use Types Packs/Day Years [...] Description 06/27/2025 3:45 PM EST Office Visit [facility] MED & PEDS [address] [place] [address] Flaca Matthews MD [address] [place] [address] Scheduled Orders Name Type Priority Associated Diagnoses Orde r Schedule CBC auto differential Lab Routine Anemia, unspecified type Expected: 04/18/2025 (Approximate), Expires: 04/18/2026 documented as of this encounter Visit Diagnoses Diagnosis Anemia, unspecified type- Primary documented in this encounter Additional Health Concerns Assessment Noted Time PHQ-9 Depression Total Score: 23 025 8:36 AM EST documented as of this encounter Care Teams Construction Site Manager Relationship Specialty Start Date End Date Flaca Matthews MD [address] [place] [address] PCP - General Family Medicine 03/05/21 documented as of this encounter
--- OUTSIDE RECORDS SUMMARY | 2025-05-28 08:06 | XMS_ITS | Encounter Summary ---
Author Organization [email or web address] Address [address] [facility] [address]t [place] [address] Care Team Providers Care Custom Decorating Consultant Name Role Phone Flaca Matthews MD Primary Care Provider [phone] Reason for Visit * Reason Comments Med Refill Encounter Details Date Type Department Care Team ([facility] st Contact Info) Description 03/27/2023 Refill [facility] DIABETES/NUTRITION [address] [place] [address] Flaca Matthews MD [address] [place] [address] Social History Tobacco Use Types Packs/Day Years [...] Description 06/27/2025 3:45 PM EST Office Visit [facility] MED & PEDS [address] [place], [place] [phone] Flaca Matthews MD [address] [place] [address] documented as of this encounter Visit Diagnoses Not on filedocumented in this encounter Additional Health Concerns Assessment Noted Time PHQ-9 Depression Total Score: 20 023 1:36 PM EST documented as of this encounter Care Teams Custom Decorating Consultant Relationship Specialty Start Date End Date Flaca Matthews MD [address] [place] [address] PCP - General Family Medicine 03/05/21 documented as of this encounter
--- OUTSIDE RECORDS SUMMARY | 2025-05-28 08:06 | XMS_ITS | Encounter Summary ---
Author Organization [employer] Address [address] [facility] 7t [place] [address] Care Team Providers Care Industrial Sales Manager Name Role Phone Flaca Matthews MD Primary Care Provider [phone] Reason for Visit * Reason Onset Date Comments Nurse Triage 02/18/2023 Encounter Details Date Type Department Care Team ([facility] st Contact Info) Description 02/18/2023 Telephone [facility] MED & PEDS [address] [place] [address] Flaca Matthews MD [address] [place] [address] Nurse Triage Social History Tobacco Use Types [...] accepted this outcome Please contact pt at [phone] documented in this encounter Plan of Treatment Upcoming Encounters Date Type Department Care Team ([facility] st Contact Info) Description 06/27/2025 3:45 PM EST Office Visit [facility] MED & PEDS [address] [place] [address] Flaca Matthews MD [address] [place] [address] documented as of this encounter Visit Diagnoses Not on filedocumented in this encounter Additional Health Concerns Assessment Noted Time PHQ-9 Depression Total Score: 20 023 1:36 PM EST documented as of this encounter Care Teams Industrial Sales Manager Relationship Specialty Start Date End Date Flaca Matthews MD [address] [place] [address] PCP - General Family Medicine 03/05/21 documented as of this encounter
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
== END 2025-05-28 08:03 | disposition home or self-care (01) ==
LOC: HO.US 08:02
PROVIDERS: PCP Family Medicine; Visit Provider Family Medicine
DX: R10.11 Right upper quadrant pain (principal); N85.2 Hypertrophy of uterus; N93.9 Abnormal uterine and vaginal bleeding, unspecified
CPT/HCPCS: 76700; 76830; 76856

== ENCOUNTER → 2025-05-28 08:04 | Outpatient (BNV) | payer MEDICAID, SELFPAY | PROVIDERS: PCP Family Medicine; Visit Provider Radiology Diagnostic Radiology | DX: R10.11 Right upper quadrant pain (principal); N85.2 Hypertrophy of uterus; D25.9 Leiomyoma of uterus, unspecified | CPT/HCPCS: 76700; 76830; 76856 ==

== ENCOUNTER 2025-05-29 15:38 | Emergency (ER) | payer MEDICAID, SELFPAY ==
[2025-05-29 15:46] VITALS: BP 170/89; PULSE 85; RESP 20; TEMP 36; O2SAT 99; BMI 38.2
--- NOTE | 2025-05-29 15:56 | ECG_ITS ---
Test Reason : abdominal pain Blood Pressure : */* mmHG Vent. Rate : 88 BPM Atrial Rate : 88 BPM P-R Int : 146 ms QRS Dur : 68 ms QT Int : 378 ms P-R-T Axes : 50 41 38 degrees QTcB Int : 457 ms Normal sinus rhythm Normal ECG When compared with ECG of 25-Nov-2018 20:55, No significant change was found Referred By: Yonathan Archibald Electronically Signed By: PAIGE MELENDEZ MD
--- NOTE | 2025-05-29 15:57 | ED_ITS ---
HPI - General Adult General Chief complaint: Abdominal Pain Stated complaint: Abdominal pain Time Seen by Provider: 05/29/25 17:48 Source: patient, RN notes reviewed and old records reviewed Mode of arrival: ambulatory Limitations: no limitations History of Present Illness ED Provider: Michael COLÓN narrative: 44-year-old female with known history of uterine fibroids and iron-deficiency anemia presents for evaluation of lower abdominal pain, somewhat left-sided. Her symptoms started 2-3 weeks ago. She denies any burning with urination or blood in the urine. She saw her doctor recently for the discomfort and had a pelvic ultrasound ordered yesterday. She had a gallbladder ultrasound ordered today there was no evidence of gallstones or cholecystitis on the upper abdominal ultrasound. The pelvic ultrasound showed a significantly enlarged uterine fibroid measuring up to 11.7 cm. The patient reports that a few months ago this is only 4 cm. the patient is denies history abdominal surgeries the patient reports that she has not yet gone through menopause Related Data Home Medications ?Medication ?Instructions ?Recorded ?Confirmed amitriptyline 25 mg tablet 25 mg PO BEDTIME 05/05/23 0 01/16/25 amlodipine 5 mg tablet 5 mg PO QAM 05/05/23 5 losartan 100 mg tablet 100 mg PO BEDTIME 05/05/23 0 01/16/25 omeprazole 20 mg capsule,delayed 20 mg PO DAILY 01/16/25 release sertraline 50 mg tablet 50 mg PO BEDTIME 05/05/23 ergocalciferol (vitamin D2) 200 200 mcg PO DAILY 11/1501/16/25 mcg/mL (8,000 unit/mL) oral drops iron 125 mg-iron 25 mg (asp 100 tab PO DAILY 11/15/24 01/16/25 gly)-folic acid 1 mg-mv-min no.38 tablet Previous Rx's ?Medication ?Instructions ?Recorded acetaminophen 650 mg 650 mg PO Q8H PRN fever or p ain 01/28/21 tablet,extended release #20 tabs cyclobenzaprine 10 mg tablet 10 mg PO TID PRN muscle s pasm #10 06/10/21 tabs lidocaine 5 % topical patch 1 patch topical DAILY #15 ea 06/10/21 tramadol 50 mg tablet 50 mg PO Q8H PRN severe pain 05/29/25 (scale score 7-10) #12 tabs Allergies Allergy/AdvReac Type Severity Reaction Status Date / Time ciprofloxacin (CIPROFLOXACIN) Allergy Severe ITCHING Verified 05/29/25 15:50 THROAT SWELLING Sulfa (Sulfonamide Allergy Intermediate GI UPSET, Verified 05/29/25 15:50 Antibiotics) (SULFA ITCHING (SULFONAMIDE ANTIBIOTICS)) ibuprofen (IBUPROFEN) Allergy Unknown RASH Verified 05/29/25 15:50 quetiapine (From SEROQUEL) Allergy Unknown RASH Verified 05/29/25 15:50 motrin Allergy Unknown Rash Uncoded 05/05/23 11:33 sulfa Allergy Unknown Rash Uncoded 05/05/23 11:33 Review of Systems 2 Constitutional: Constitutional: Denies body ache(s), Denies chills, Denies fever(s), Denies frequent falls and Denies headache(s) ENT: Denies vertigo and Denies headache(s) Cardiovascular: Cardiovascular: Denies chest pain Gastrointestinal: Gastrointestinal: Reports abdominal pain, Denies diarrhea, Denies loose stools, Reports nausea and Denies vomiting Musculoskeletal: Musculoskeletal: Reports back pain Integumentary/Breasts: Skin/Breast: Denies rash Neurologic: Denies vertigo, Denies frequent falls and Denies headache(s) Psychiatric: Psychiatric: Denies anxiety PMFSH Past Medical History Medical History (Updated 05/30/25 @ 00:00 by Caroline Simental) Iron deficiency anemia No known health problems Surgical History H/O bilateral breast reduction surgery History of left knee replacement History of neck surgery Family History Family History Maternal Aunt No problems noted. 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 Gender identity: Female Physical Exam ED Vital Signs: Vital Signs - 24 hr 05/29/25 15:46 05/29/25 18:01 05/29/25 18:20 Temperature 96.8 F 97.6 F Pulse Rate 85 78 78 Respiratory Rate 20 16 16 Blood Pressure 170/89 H 176/103 H 168/90 H Pulse Oximetry 99 100 100 Oxygen Delivery Method Room Air Room Air Room Air 05/29/25 18:24 Temperature 97.6 F Pulse Rate 82 Respiratory Rate 16 Blood Pressure 135/92 H Pulse Oximetry 100 Oxygen Delivery Method Room Air BMI result Body Mass Index 38.2 Const General: healthy appearing, comfortable, no acute distress, alert and awake Nutritional Appearance: well nourished Orientation/consciousness: patient oriented x3 HENMT Head: Yes normocephalic and Yes atraumatic Eyes Eyelids: Yes eyelids normal Conjunctivae: conjunctivae normal Sclerae: sclerae normal Corneas: corneas normal Pupils: Equal, round and reactive pupils present EOM: EOMs intact bilaterally Neck Neck: Yes full ROM Resp Effort & Inspection: normal respiratory effort, able to speak in complete sentences and not labored Cardio Rate: regular rate Rhythm: regular rhythm GI Inspection: No distended Palpation (GI): Soft to palpation, not firm, nontender, no guarding and not rigid Skin General skin exam: elasticity normal Neuro General: patient oriented x3 Cranial nerves: Yes CN's II-XII intact bilaterally, Yes Equal, round and reactive pupils present and Yes Bilaterally intact EOM present Cognition (Neuro): normal cognition Extrem Other: Moving all extremities well without any obvious deformities Course Course Course Narrative: RME: 44-year-old female presents to ED for left upper abdominal left flank left back pain radiating down legs with nausea and headache for the past 2-2 weeks. Patient states history of fibroids. EKG labs ordered Medications Administered Discontinued Medications Generic Name Dose Route Start Last Admin Trade Name Rioq PRN Reason Stop Dose Admin Tramadol HCl 50 mg 05/29/25 18:12 05/29/25 18:20 Tramadol Hcl 50 Mg Tablet PO 05/29/25 18:13 50 mg ONCE ONE Administration Medical Decision Making Medical Decision Making MDM Narrative: 44-year-old female presents for evaluation abdominal pain. She has already had an outpatient workup initiated. Her ultrasound yesterday showed normal ovaries but a significantly enlarged uterine fibroid measuring up to 11.7 cm. Given that this was only 4 cm a few months ago per the patient's report, this is concerning for a malignancy. I discussed this with the patient in his imperative that she follows up with her primary doctor as well as OBGYN, she will be referred to a list of OBGYN. She has an allergy to NSAIDs and reports Tylenol was not helping her pain, she will be discharged with a short course of tramadol for her pain. Return precautions were given. There was no evidence of ovarian torsion. No evidence of infectious process. The patient was offered to send a urinalysis but she denies any symptoms of the UTI and we would like to skip that for now. Differential Diagnosis Differential Diagnoses: The differential diagnosis associated with the presentation includes Uterine fibroids Constipation obstructive uropathy UTI Lab Data MDM Lab Attestation statement: I reviewed the patient's lab results. atdon has no leukocytosis or left shift, she has a mild normocytic anemia consistent with a known history of iron-deficiency anemia. This is being treated no significant chemistry abnormalities warranting intervention. the patient is not 05/29/25 16:06 05/29/25 16:06 Labs: Lab Results 05/29/25 Range/Units 16:06 WBC 6.5 (4.8-10.8) X10*3/uL RBC 3.85 L (4.20-5.50) X10*6/uL Hgb 11.1 L (12.0-16.0) g/dl Hct 32.7 L (37.0-47.0) % MCV 84.9 (80.0-98.0) fL MCH 28.8 (27.0-33.0) pg MCHC 33.9 (31.0-35.0) g/dl RDW 14.1 (11.0-16.0) % Plt Count 306 (160-400) X10*3/uL MPV 9.3 L (9.4-12.3) fL Immature Gran % (Auto) 0.5 H (0.0-0.4) % Neut % (Auto) 64.1 (45-73) % Lymph % (Auto) 27.2 (20-40) % Meigs % (Auto) 6.8 (2-11) % Eos % (Auto) 1.2 (0-4) % Baso % (Auto) 0.2 (0-2) % Lymph # (Auto) 1.8 (1.2-4.9) X10*3/uL Meigs # (Auto) 0.4 (0.1-1.2) X10*3/uL Eos # (Auto) 0.1 (0.0-0.4) X10*3/uL Baso # (Auto) 0.0 (0.0-0.2) X10*3/uL Abs Immat Gran (auto) 0.03 (0.00-0.03) X10*3/uL Absolute Neuts (auto) 4.2 (2.0-8.3) x10*3/uL Absolute Nucleated RBC 0.000 (0.0-0.012) X10*3/uL Nucleated RBC % (auto) 0.0 (0.0-0.2) /100WBC Sodium 142 (135-145) mmol/L Potassium 4.2 (3.3-5.1) mmol/L Chloride 109 H (96-108) mmol/L Carbon Dioxide 27 (22-29) mmol/L Anion Gap 10 L (12-20) BUN 5 L (9-16) mg/dL Creatinine 0.65 (0.5-1.4) mg/dL Estim Creat Clear Calc 120.4 Estimated GFR > 60 Random Glucose 87 (60-115) mg/dL Calcium 9.3 (8.4-10.2) mg/dL Total Bilirubin 0.4 (0.0-1.0) mg/dL AST 22 (5-31) U/L ALT 16 (0-31) U/L Alkaline Phosphatase 49 (39-117) U/L Troponin I High Sens < 2.7 (<3.5-17.0) ng/L Total Protein 7.0 (6.5-8.0) g/dL Albumin 4.1 (3.5-5.0) g/dL Lipase 24 (8-78) U/L Beta HCG, Quant < 2 mIU/mL Radiology Impression Discussion of test interpretation with radiology: I have reviewed the radiologist's reading. Radiologist Impression: Findings: Transvaginal scanning performed. Anteverted uterus is 19.2 cm length. Endometrium not visualized due to obscuration by numerous uterine fibroids. In the midbody of the myometrium there is a 10.9 x 8.4 x 11.7 cm mass, likelyuterine fibroid. Per fish farmer history this fibroid previously measured 4.1 x 3.6 x 3.2 cm, however comparisons are not available to this typewriter tester. In the left fundus there is a 4.2 x 2.9 x 2.3 cm mass, likely uterine fibroid. Previously this structure measured 4.5 x 3.6 x 4.4 cm by fish farmer history. Right ovary 2.2 x 1.7 x 2.2 cm. Left ovary 3.9 x 2.4 x 2.7 cm. Normal color Doppler of both ovaries. Normal grayscale appearance of both ovaries. No free fluid. IMPRESSION: 1. Enlarged uterus containing 2 masses which may be uterine fibroids. The largest mass has significantly increased from prior, via fish farmer history, and measures 10.9 x 8.4 x 11.7 cm. Endometrium not well visualized due to large uterine masses obscuring. 2. Normal appearance of the ovaries. This document has been electronically signed by: George Naranjo MD on 05/28/2025 23:20:17 External Record Review External record reviewed: Prior outpatient labs and Prior outpatient radiology Tests considered The following testing was considered but not selected: consider CT scan of the abdomen pelvis but ultimately deferred Discharge Plan Discharge Clinical Impression: Fibroid, uterine Patient Disposition: Home, Self-Care Instructions: Uterine Fibroids (ED) Additional Instructions: You were seen in the Emergency Department today for abdominal pain and found to have a very large uterine fibroid. this measures up to 11.7 cm You need to follow up with your primary care doctor or OBGYN. OBGYN and Midwifery [facility] [address] [place], [place] [phone] [facility] [address] [phone] [facility] [address] [phone] OBGYN and Midwifery [facility] [address] [address] [phone] [facility] [place] [phone] Prescriptions: New tramadol 50 mg tablet 50 mg PO Q8H PRN (Reason: severe pain (scale score 7-10)) Qty: 12 0RF No Action acetaminophen 650 mg tablet extended release 650 mg PO Q8H PRN (Reason: fever or pain) Qty: 20 0RF cyclobenzaprine 10 mg tablet 10 mg PO TID PRN (Reason: muscle spasm) Qty: 10 0RF lidocaine 5 % adhesive patch,medicated 1 patch topical DAILY Qty: 15 0RF Rx Instructions: leave on most painful area for up to 12 hrs ergocalciferol (vitamin D2) [Vitamin D2] 200 mcg/mL (8,000 unit/mL) Drops 200 mcg PO DAILY iron,iron asp [id number] 38 125 mg iron-25 mg iron-1 mg Tablet 100 tab PO DAILY sertraline 50 mg tablet 50 mg PO BEDTIME omeprazole 20 mg capsule,delayed release(DR/EC) 20 mg PO DAILY losartan 100 mg tablet 100 mg PO BEDTIME amlodipine 5 mg tablet 5 mg PO QAM amitriptyline 25 mg tablet 25 mg PO BEDTIME Interventions: ED Discharge Assessment Last Done: 05/29/25 18:24 Discharge Date/Time: 05/29/25 18:25 Print Language: Eritrean
[2025-05-29 16:11] LABS: Hematocrit 32.7 % (37.0-47.0); Hemoglobin 11.1 g/dl (12.0-16.0); Imm Gran Abs Auto 0.03 X10*3/uL (0.00-0.03); Imm Gran Pct Auto 0.5 % (0.0-0.4); Lymphocytes Absolute Auto 1.8 X10*3/uL (1.2-4.9); MANUAL DIFF FLAG NO; Mean Corpuscular HGB Conc 33.9 g/dl (31.0-35.0); Mean Corpuscular Hemoglobin 28.8 pg (27.0-33.0); Mean Corpuscular Volume 84.9 fL (80.0-98.0); NRBC Abs Auto 0.000 X10*3/uL (0.0-0.012); NRBC Pct Auto 0.0 /100WBC (0.0-0.2); Platelet Count 306 X10*3/uL (160-400); Red Blood Count 3.85 X10*6/uL (4.20-5.50); White Blood Count 6.5 X10*3/uL (4.8-10.8)
[2025-05-29 16:35] LABS: Alanine Aminotransferase 16 U/L (0-31); Albumin Level 4.1 g/dL (3.5-5.0); Alkaline Phosphatase 49 U/L (39-117); Anion Gap 10 (12-20); Aspartate Amino Transferase 22 U/L (5-31); Blood Urea Nitrogen 5 mg/dL (9-16); Calcium 9.3 mg/dL (8.4-10.2); Carbon Dioxide 27 mmol/L (22-29); Chloride 109 mmol/L (96-108); Creatinine Clr Calc Pharmacy 120.4; Estimated Glomerular Filt Rate > 60; Lipase 24 U/L (8-78); Potassium 4.2 mmol/L (3.3-5.1); Sodium 142 mmol/L (135-145); Total Protein 7.0 g/dL (6.5-8.0)
--- OUTSIDE RECORDS SUMMARY | 2025-05-29 17:35 | XMS_ITS | Encounter Summary ---
Author Organization [employer] Address [address] [place] [address] Care Team Providers Care Cycle Director Name Role Phone Flaca Matthews MD Primary Care Provider [phone] Reason for Visit * Reason Onset Date Comments Referral 03/31/2024 Encounter Details Date Type Department Care Team ([facility] Contact Info) Description 03/31/2024 Telephone [facility] [address] [place] [address] Flaca Matthews MD [address] [place] [phone] Referral Social History Tobacco Use Types Packs/Day [...] TMJ , Pt will like a callback [phone] documented in this encounter Plan of Treatment Upcoming Encounters Date Type Department Care Team (Late st Contact Info) Description 05/30/2025 1:30 PM EST Office Visit [facility] MED & PEDS [address] [place] [address] Flaca Matthews MD [address] [place] [address] 06/27/2025 3:45 PM EST Office Visit [facility] MED & PEDS [address] [place] [address] Flaca Matthews MD [address] [place] [address] documented as of this encounter Visit Diagnoses Not on filedocumented in this encounter Additional Health Concerns Assessment Noted Time PHQ-9 Depression Total Score: 14 023 3:08 PM EST documented as of this encounter Care Teams Cycle Director Relationship Specialty Start Date End Date Flaca Matthews MD [address] [place] [phone] PCP - General Family Medicine 03/05/21 documented as of this encounter
--- OUTSIDE RECORDS SUMMARY | 2025-05-29 17:35 | XMS_ITS | Encounter Summary ---
Author Organization [employer] Address [address] [place] [address] Care Team Providers Care Grinding Machine Tender Name Role Phone Flaca Matthews MD Primary Care Provider [phone] Encounter Details Date Type Department Care Team (Latest Contact Info) Description 04/18/2025 Results Follow-Up [facility] MED & PEDS [address] [place], [place] [phone] Flaca Matthews MD [address] [place] [address] CBC auto differential, Comprehensive Metabolic Panel, Lipase [...] Description 05/30/2025 1:30 PM EST Office Visit [facility] MED & PEDS [address] [place] [address] Flaca Matthews MD [address] [place] [address] 06/27/2025 3:45 PM EST Office Visit [facility] MED [facility] PEDS [address] [place] [address] Flaca Matthews MD [address] [place] [address] Scheduled Orders Name Type Priority Associated Diagnoses Orde r Schedule CBC auto differential Lab Routine Anemia, unspecified type Expected: 04/18/2025 (Approximate), Expires: 04/18/2026 documented as of this encounter Visit Diagnoses Diagnosis Anemia, unspecified type- Primary documented in this encounter Additional Health Concerns Assessment Noted Time PHQ-9 Depression Total Score: 23 025 8:36 AM EST documented as of this encounter Care Teams Grinding Machine Tender Relationship Specialty Start Date End Date Flaca Matthews MD [address] [place] [phone] PCP - General Family Medicine 9/29/21 documented as of this encounter
--- OUTSIDE RECORDS SUMMARY | 2025-05-29 17:35 | XMS_ITS | Encounter Summary ---
Author Organization [employer] Address [address] [facility] [address] [place] [address] Care Team Providers Care Hot Saw Helper Name Role Phone Flaca Mtathews MD Primary Care Provider [phone] Reason for Visit * Reason Comments Med Refill Encounter Details Date Type Department Care Team ([facility] Contact Info) Description 11/12/2024 Refill [facility] MED & PEDS [address] [place], [place] [phone] Anthony Vazquez MD [address] [place] [address] Social History Tobacco Use Types Packs/Day Years [...] Description 05/30/2025 1:30 PM EST Office Visit [facility] MED & PEDS [address] [place] [address] Flaca Matthews MD [address] [place] [address] 06/27/2025 3:45 PM EST Office Visit [facility] MED & PEDS [address] [place] [address] Flaca Matthews MD [address] [place] [address] documented as of this encounter Visit Diagnoses Not on filedocumented in this encounter Additional Health Concerns Assessment Noted Time PHQ-9 Depression Total Score: 14 023 3:08 PM EST documented as of this encounter Care Teams Hot Saw Helper Relationship Specialty Start Date End Date Flaca Matthews MD [address] [place] [phone] PCP - General Family Medicine 03/05/21 documented as of this encounter
--- OUTSIDE RECORDS SUMMARY | 2025-05-29 17:35 | XMS_ITS | Encounter Summary ---
Author Organization [employer] Address [address] [facility] 7[address] [place] [address] Care Team Providers Care Gas Meter Installer Name Role Phone Flaca Matthews MD Primary Care Provider Reason for Visit * Reason Onset Date Comments Nurse Triage 05/29/2025 Encounter Details Date Type Department Care Team ([facility] Contact Info) Description 05/29/2025 Telephone [facility] CHC MED & PEDS [address] [place] [address] Flaca Matthews MD [address] [place] [address] Nurse Triage Social History Tobacco Use Types [...] encounter Miscellaneous Notes * Telephone Encounter - Suzanne Ernst RN - 05/29/2025 10:52 AM EST TC placed to the pt in regard to reported abdominal pain symptoms. The pt reports that for the pastday or so she has been having 9/10 pain in the lower quadrant of the abdomen. The pain is also radiating to the lower back and legs. The pt has been able to urinate normally but does endorse chronic constipation over the past few weeks. No blood noted in stool or urine. Due to the abdominal pain the pt has been very hesitant to eat solid foods. The pt has been relying primarily on diet sal aleand tea. The pt has felt very fatigues and states that she does not feel like getting out of bed. Pt is afebrile with no respiratory symptoms including cough, CP or SOB. Pt does have a headache and fe els nauseas but has not vomited. Pt was seen by PCP on 05/10 in which similar symptoms were discussed and the pt was prescribed simethicone 80 MG with no relief currently felt. Pt agreeable to scheduling next day appointment with PCP on 05/30 at 130 with PCP. Pt given precautions for ED and when to call back the office. Protocol Used: Abdominal Pain - Female (Adult) Protocol-Based Disposition: See in Office or Video Visit Today Video visit offer not recorded Positive Triage Questions: * Moderate pain (e.g., interferes with normal activities that comes and goes (cramps) lasts > 24hours (Exception: Pain with diarrhea or vomiting; see Diarrhea or Vomiting Protocol.) * Patient wants to be seen * Mild pain (e.g., does not interfere with normal activities) and pain comes and goes (cramps) lasts > 48 hours (Exception: This same abdominal pain is a chronic symptom recurrent or ongoing AND present > 4 weeks.) * Abdominal pain is a chronic symptom (recurrent or ongoing AND lasting > 4 weeks) * All higher-acuity triage questions were negative. * Telephone Encounter - Benitez Rangel - 05/29/2025 10:39 AM EST Symptom: Abdominal Pain - Female - Not Outcome: Talk to a nurse or provider within 15 minutes Reason: Severe pain now The caller accepted this outcome. Contact pt at [phone] documented in this encounter Plan of Treatment Upcoming Encounters Date Type Department Care Team (Late st Contact Info) Description 05/30/2025 1:30 PM EST Office Visit [facility] MED & PEDS [address] [place] [address] Flaca Matthews MD [address] [place] [address] 06/27/2025 3:45 PM EST Office Visit [facility] MED & PEDS [address] [place] [address] Flaca Matthews MD [address] [place] [address] documented as of this encounter Visit Diagnoses Not on filedocumented in this encounter Additional Health Concerns Assessment Noted Time PHQ-9 Depression Total Score: 23 025 8:36 AM EST documented as of this encounter Care Teams Gas Meter Installer Relationship Specialty Start Date End Date Flaca Matthews MD [address] [place] [address] PCP - General Family Medicine 03/05/21 documented as of this encounter
--- OUTSIDE RECORDS SUMMARY | 2025-05-29 17:35 | XMS_ITS | Encounter Summary ---
Author Organization [employer] Address [address] [facility] [address] [place] [address] Care Team Providers Care Morning Nanny Name Role Phone Flaca Matthews MD Primary Care Provider [phone] Reason for Visit * Reason Onset Date Comments Referral 04/27/2024 Encounter Details Date Type Department Care Team ([facility] Contact Info) Description 04/27/2024 Telephone [facility] MEDICINE [address] [place] [address] Flaca Matthews MD [address] [place] [address] Referral Social History Tobacco Use Types Packs/Day [...] PM EST Can we send her to [facility]? * Telephone Encounter - Caio Phillips - 04/27/2024 10:42 AM EST Tc from [facility] with [facility] calling to inform they won't be able to complete referral for TMJ, she would need to be referred else where. They advised to refer pt to [facility]. If any questions you can contact Boris at [phone]. documented in this encounter Plan of Treatment Upcoming Encounters Date Type Department Care Team (Late st Contact Info) Description 05/30/2025 1:30 PM EST Office Visit [facility] MED & PEDS [address] [place] [address] Flaca Matthews MD [address] [place] [address] 06/27/2025 3:45 PM EST Office Visit [facility] MED & PEDS [address] [place] [address] Flaca Matthews MD [address] [place] [address] documented as of this encounter Visit Diagnoses Not on filedocumented in this encounter Additional Health Concerns Assessment Noted Time PHQ-9 Depression Total Score: 14 023 3:08 PM EST documented as of this encounter Care Teams Morning Nanny Relationship Specialty Start Date End Date Flaca Matthews MD [address] [place] [address] PCP - General Family Medicine 03/05/21 documented as of this encounter
--- OUTSIDE RECORDS SUMMARY | 2025-05-29 17:35 | XMS_ITS | Encounter Summary ---
Author Organization [employer] Address [address] [facility] 7[address] [place] [address] Care Team Providers Care Hr Generalist Name Role Phone Flaca Mattehws MD Primary Care Provider [phone] Reason for Visit * Reason Onset Date Comments Nurse Triage 02/18/2023 Encounter Details Date Type Department Care Team ([facility] st Contact Info) Description 02/18/2023 Telephone [facility] CHC MED & PEDS [address] [place] [address] Flaca Matthews MD [address] [place] [address] Nurse Triage Social History Tobacco Use Types [...] accepted this outcome Please contact pt at [phone] documented in this encounter Plan of Treatment Upcoming Encounters Date Type Department Care Team ([facility] st Contact Info) Description 05/30/2025 1:30 PM EST Office Visit [facility] MED & PEDS [address] [place] [address] Flaca Matthews MD [address] [place] [address] 06/27/2025 3:45 PM EST Office Visit [facility] CHC MED & PEDS [address] [place] [address] Flaca Matthews MD [address] [place] [address] documented as of this encounter Visit Diagnoses Not on filedocumented in this encounter Additional Health Concerns Assessment Noted Time PHQ-9 Depression Total Score: 20 023 1:36 PM EST documented as of this encounter Care Teams Hr Generalist Relationship Specialty Start Date End Date Flaca Matthews MD [address] [place] [address] PCP - General Family Medicine 03/05/21 documented as of this encounter
--- OUTSIDE RECORDS SUMMARY | 2025-05-29 17:35 | XMS_ITS | Encounter Summary ---
Author Organization [employer] Address [address] [facility] 7t [place] [address] Care Team Providers Care Chemist Enzymes Name Role Phone Flaca Matthews MD Primary Care Provider [phone] Reason for Visit * Reason Comments Med Refill Encounter Details Date Type Department Care Team ([facility] st Contact Info) Description 03/30/2023 Refill [facility] DIABETES/NUTRITION [address] [place] [address] Flaca Matthews MD [address] [place] [address] Social History Tobacco Use Types Packs/Day Years [...] - [facility] [address] [place] [address] Flaca Matthews MD [address] [place] [address] 06/27/2025 3:45 PM EST Office Visit [facility] MED & PEDS [address] [place] [address] Flaca Matthews MD [address] [place] [address] documented as of this encounter Visit Diagnoses Not on filedocumented in this encounter Additional Health Concerns Assessment Noted Time PHQ-9 Depression Total Score: 20 023 1:36 PM EST documented as of this encounter Care Teams Chemist Enzymes Relationship Specialty Start Date End Date Flaca Matthews MD [address] [place] [address] PCP - General Family Medicine 03/05/21 documented as of this encounter
--- OUTSIDE RECORDS SUMMARY | 2025-05-29 17:35 | XMS_ITS | Encounter Summary ---
Author Organization [employer] Address [address] [facility] 7t [place] [address] Care Team Providers Care Pharmacy Technician Inpatient Name Role Phone Flaca Matthews MD Primary Care Provider [phone] Reason for Visit * Reason Comments Med Refill Encounter Details Date Type Department Care Team ([facility] st Contact Info) Description 03/27/2023 Refill [facility] DIABETES/NUTRITION [address] [place] [address] Flaca Matthews MD [address] [place] [address] Social History Tobacco Use Types Packs/Day Years [...] Description 05/30/2025 1:30 PM EST Office Visit [facility] MED & PEDS [address] [place] [address] Flaca Matthews MD [address] [place] [address] 06/27/2025 3:45 PM EST Office Visit [facility] MED & PEDS [address] [place] [address] Flaca Matthews MD [address] [place] [address] documented as of this encounter Visit Diagnoses Not on filedocumented in this encounter Additional Health Concerns Assessment Noted Time PHQ-9 Depression Total Score: 20 023 1:36 PM EST documented as of this encounter Care Teams Pharmacy Technician Inpatient Relationship Specialty Start Date End Date Flaca Matthews MD [address] [place] [address] PCP - General Family Medicine 03/05/21 documented as of this encounter
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
--- OUTSIDE RECORDS SUMMARY | 2025-05-29 17:36 | XMS_ITS | Clinical Summary ---
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 04/17/251435 Quality Control Technician: Procedure Note Donotuseinterpreter, Image - 04/17/2025 [place] [address] XRay Report Signed Patient: Lyubov Frazier DMR#: [id number] : 1980Acct:[id number] Age/Sex: 44 / FADM Date: 04/17/25 Loc: HO.[facility] Attending Dr: Alysia Guerra MD Ordering Physician: Alysia Guerra MD Date of Service: 04/17/25 Procedure(s): XR lumbar spine 4V min Accession Number(s): [id number] cc: Alysia Guerra MD; Flaca Matthews MD [...] signed by Dakota Loza MDin OV> 04/17/25 144 DD/ TD/TT: 04/17/251435 Quality Control Technician: Alysia Guerra MD IMG XR PROCEDURES Edited Result - Final * (ABNORMAL) Lipid Panel, Standard (05/22/2024 10:59 AM EST) Triglycerides 135 <150 mg/dL [facility] Comment:Desirable Triglyceri de: less than 150 mg/dLBorderline High Triglyceride 150-199 mg/dLHigh Triglyceride: 200-499 mg/dLVery High Triglyceride: greater than or equal to 5OO mg/dL Cholesterol 183 <200 mg/dL [facility] Comment:Desirable Cholestero l: less than 200 mg/dLBorderline High Cholesterol: 200-239 mg/dLHigh Cholesterol: greater than 239 mg/dL LDL Cholesterol Calculated 109(H) <100 mg/dL [facility] Comment:Desirable LDL: less than 100 mg/dLNear Optimal/Above Optimal LDL: 110- 129 mg/dLBorderline High LDL: 130-159 mg/dLHigh LDL: 160-189 mg/dLVery High LDL: greater than or equal to 190 mg/dL HDL Cholesterol 47 >40 mg/dL [facility] Comment:Desirable HDL: great er than 40 mg/dL Note: This HDL assay may give artificially low results in patients with liver disease. Blood Venous blood specimen / Unknown 05/22/2024 10:59 AM EST 05/22/2024 2:01 PM EST us Flaca Matthews MD LAB BLOOD ORDERABLES Final Re sult [facility] [address] [place] [phone] * Cologuard?? colon cancer screening (02/03/2024 5:45 PM EDT) Cologuard Result Negative Negative 02/09/20 6:47 PM EDT [facility] (CLIA #:[id number]) Comment: NEGATIVE TEST RESULT. A negative Cologuard [...] screened with both Cologuard and colonoscopy. (Cristal Mckeon, N Engl J Med 2014;370(14):6538-8889) The normal value (reference range) for this assay is negative. COLOGUARD RE-SCREENING RECOMMENDATION: Periodic colorectal cancer screening is an important part of preventive healthcare for asymptomatic individuals at average risk for colorectal cancer. Following a negative Cologuard result, the [place] [employer] Society and U.S. Multi-Society Task Force screening guidelines recommend a Cologuard re-screening interval of 3 years. References: [place] [employer] Guideline for Colorectal Cancer Screening: https://www.cancer.org/cancer/cgitn-ghdugk-uzaozf/xsuofrgym-cpylcqbnn-yvqrrqq/ac s-rec ommendations.html.; Gonzalez DK, Woo MCDONOUGH, Javier FuK, Colorectal Cancer Screening: Recommendations for Physicians and Patients from the U.S. Multi-Society Task Force on Colorectal Cancer Screening , Am J Gastroenterology 2017; 112:4136-7586. TEST DESCRIPTION: Composite algorithmic analysis of stool [...] screened with both Cologuard and colonoscopy. (Cristal Mckeon, N Engl J Med 2014;370(14):2449-1078.) Cologuard may produce a false negative or false positive result (no colorectal cancer or precancerous polyp present at colonoscopy follow up). A negative Cologuard test result does not guarantee the absence of CRC or advanced adenoma (pre-cancer). The current Cologuard screening interval is every 3 years. ([place] [employer] and U.S. Multi-Society Task Force). Cologuard performance data in a 10,000 patient pivotal study using colonoscopy as the reference method can be accessed at the following location: www.[employer].DealerRater/results. Additional description of the Cologuard test process, warnings and precautions can be found at www.cologLonoCloudrd.DealerRater. Stool specimen (specimen) 02/03/2024 5:45 PM EDT 02/05/2024 7:29 AM EDT Flaca Matthews MD LAB MOLECULAR DIAGNOSTICS ORD ERABLES Final Result Performing Organization Address City/[facility]/ZIP Co de Phone Number [facility] (CLIA #:[id number]) [address] [place] [address], * Hepatitis C Antibody with Reflex to HCV, RNA, Quantitative, Real-Time PCR (12/22/2023 12:00 AM EDT) Hepatitis C Antibody Nonreactive Nonreactive [facility] Comment:Antibodies to HCV no t detected; does not exclude early acuteHCV infection. Blood Venous blood specimen / Unknown 12/22/2023 12/22/2023 Flaca Matthews MD LAB BLOOD ORDERABLES Final Re sult Performing Organization Address [facility] Co de Phone Number [facility] [address] [place] [phone] * HIV-1/2 Antigen and Antibodies, Fourth Generation, with Reflexes (12/22/2023 12:00 AM EDT) HIV AB/AG Nonreactive Nonreactive [facility] Comment:HIV-1 p24 Ag and/or HIV-1/HIV-2 Ab not detected.A test result that is nonreactive does not exclude thepossibility of exposure to or infection with HIV-1 and/orHIV-2. Nonreactive results in this assay for individualswith prior exposure to HIV-1 and/or HIV-2 may be due toantigen and antibody levels that are below the limit ofdetection of this assay.The [employer] HIV Ag/Ab Combo assay result andsupplemental assay results should be interpreted inconjunction with the patient's clinical presentation,history and other laboratory results. If the results areinconsistent with clinical evidence, additional testing issuggested to confirm the result. Blood Venous blood specimen / Unknown 12/22/2023 12/22/2023 us Flaca Matthews MD LAB BLOOD ORDERABLES Final Re sult Performing Organization Address City/State/[facility] Co de Phone Number [facility] [address] [place] [phone] * BI Mammogram Screening Tomosynthesis Bilateral (07/14/2023 8:48 AM EST) Anatomical Region Laterality Modality Breast Bilateral Mammography 07/14/2023 8:48 AM EST Narrative 08/07/2023 7:56 PM EST [address] [place] [address] Mammography Report Signed Patient: Lyubov Frazier MR#: [id number] : 1980 Acct:[id number] Age/Sex: 42 / F ADM Date: 07/14/23 Loc: HO.MAMMO Attending Dr: Flaca Matthews MD Ordering Physician: Flaca Matthews MD Results: 2Beni gn Findings Date of Service: 07/14/23 Follow Up: 1 Year From [facility] Mammogram Procedure(s): MM tomosynthesis screening BI Accession Number(s): [id number] cc: Flaca Matthews MD EXAMINATION: MM SCREENING [...] MD in OV> 08/07/231952 DD/ 0848 TD/TT: Quality Control Technician: Procedure Note Donotuseinterpreter, Image - 08/07/2023 [facility] [address] [place] [address] Mammography Report Signed Patient: Lyubov Frazier DMR#: [id number] : 1980Acct:[id number] Age/Sex: 42 / FADM Date: 07/14/23 Loc: [place] Attending Dr: Flaca Matthews MD Ordering Physician: Flaca Matthews MDResults: 2Beni gn Findings Date of Service: 07/14/23Follow Up: [facility] Procedure(s): MM tomosynthesis screening BI Accession Number(s): [id number] cc: Flaca Matthews MD EXAMINATION: MM SCREENING [...] MD in OV> 08/07/231952 DD/ 7 TD/TT: Quality Control Technician: Flaca Matthews MD IMG BI PROCEDURES Final Resul t * THINPREP TIS PAP AND HPV mRNA E6/E7 REFLEX HPV 16,18/45 (04/11/2021 12:07 PM EDT) Clinical Information: None given [facility] COMMENT SEE COMMENT [facility] [...] has been evaluated with computer assisted technology. [facility] Tree Girdler: SEE COMMENT [facility] Comment: DCR, CT(ASCP) CT screening location: [place] [address] HPV nRNA E6/E7 Not Detected Not Detected [facility] Comment: Methodology: Helicopter Crew Chief-Mediated Amplification This assay detects E6/E7 viral messenger RNA (mRNA) from 14 high-risk HPV types (16,18,31,33,35,39,45,51,52,56,58,59,66,68). The analytical performance characteristics of this assay have been determined by [employer]. The modifications have not been cleared or approved by the FDA. This assay has been validated pursuant to the CLIA regulations and is used for clinical purposes. For additional information, please refer to http://education.viseto/faq/PBN892j9 (This link if provided for information/ educational purposes only.) Interpretation/Re sult: Negative for intraepithelial lesion or malignancy. [facility] LMP: NONE GIVEN [facility] Prev. BX: NONE GIVEN [facility] Prev. PAP: NONE GIVEN [facility] Review Tree Girdler: SEE COMMENT [facility] Comment: NSS, CT(ASCP) CT screening location: [place] [address] SOURCE: None given [facility] Statement Of Adequacy: SEE COMMENT [facility] Comment: Satisfactory for evaluation. Endocervical/transformation zone component present. Age and/or menstrual status not provided 04/11/2021 12:0 7 PM EDT Flaca Matthews MD LAB PATHOLOGY ORDERABLES Liseth l Result [facility] [address] * Thinprep Pap And HPV DNA (04/11/2021) 04/11/2021 Narrative Flaca Matthews MD - 08/04/2022 1:59 PM EST NILM +TZ, NHRHPV Historical Provider LAB PATHOLOGY ORDERABLES Final Result from Last 3 Months or Most Recently Relevant to Health Maintenance [place] [address] [place] [address] [employer] AD[place] Care Teams Toolmaker Helper Relationship Specialty Start Date End Date Flaca Matthews MD [address] [place] [phone] PCP - General Family Medicine 03/05/21
--- OUTSIDE RECORDS SUMMARY | 2025-05-29 17:36 | XMS_ITS | Encounter Summary ---
Author Organization [employer] Address [address] [facility] [address] [place] [address] Care Team Providers Care Hose Seamer Name Role Phone Flaca Matthews MD Primary Care Provider [phone] Encounter Details Date Type Department Care Team (Late st Contact Info) Description 05/29/2025 Orders Only GENERIC EXTERNAL DATA DEPARTMENT Provider, Generic External Data Social History Tobacco Use Types Packs/Day Years [...] Upcoming Encounters Date Type Department Care Team ([facility] st Contact Info) Description 05/30/2025 1:30 PM EST Office Visit [facility] MED & PEDS [address] [place] [address] Flaca Matthews MD [address] [place] [address] 06/27/2025 3:45 PM EST Office Visit [facility] [address] [place] [address] Flaca Matthews MD [address] [place] [address] documented as of this encounter Procedures Procedure Name Priority Date/Time Associated Diagnosis Comments CBC WITH AUTO DIFFERENTIAL Routine 05/29/2025 4:06 PM EST HCG, TOTAL, QN Routine 05/29/2025 4:06 PM EST LIPASE Routine 05/29/2025 4:06 PM EST COMPREHENSIVE METABOLIC PANEL Routine 05/29/2025 4:06 PM EST documented in this encounter Results * hCG, Total, Quantitative (05/29/2025 4:06 PM EST) HCG Quantitative <2 mIU/mL [facility] Comment:Weeks post LMP Appro ximate hCG(Last Menstrual Period) Range (mIU/ml)3 - 4 weeks 9 - 1304 - 5 weeks 75 - 2,6005 - 6 weeks 850 - 20,8006 - 7 weeks 4000 - 100,2007 - 12 weeks 11,500 - 289,95746 - 16 weeks 18,300 - 137,48012 - 29 weeks (2nd trimester) 1,400 - 53,29001 - 41 weeks (3rd trimester) 940 - [...] ORDERAB LES Final Result Performing Organization Address [facility]/ZIP Co de Phone Number [facility] [address] [place] [phone] * Lipase (05/29/2025 4:06 PM EST) Lipase 24 8 - 78 U/L [facility] 05/29/2025 4:06 PM EST 05/29/2025 4:09 PM EST Generic External Data Provider LAB BLOOD ORDERAB LES Final Result Performing Organization Address [facility]/ZIP Co de Phone Number [facility] [address] [place] [phone] * (ABNORMAL) Comprehensive Metabolic Panel (05/29/2025 4:06 PM EST) Sodium 142 135 - 145 mmol/L [facility] Potassium 4.2 3.3 - 5.1 mmol/L [facility] Chloride 109(H) 96 - 108 mmol/L [facility] Carbon Dioxide 27 22 - 29 mmol/L [facility] Anion Gap 10(L) 12 - 20 [facility] Urea Nitrogen (BUN) 5(L) 9 - 16 mg/dL [facility] Creatinine, Serum 0.65 0.5 - 1.4 mg/dL [facility] Creatinine Clr Calc Pharmacy 120.4 [facility] Comment:Provided height and weight: 160.02 cm,97.8 kg.eGFR (calculated from the MDRD study equation) and eCrCl(calculated from the Cockcroft-Gault equation) are based ondifferent parameters and may not yield comparable results.If eCrCl result is absurd, please check patient'sheight/weight. Estimated Glomerular Filt Rate >60 [facility] Comment:Chronic Kidney Disea se: Estimated GFR < 60 mL/min/1.94t7Bfohmh Kidney Disease: Estimated GFR < 15 mL/min/1.73m2 Glucose 87 60 - 115 mg/dL [facility] Calcium 9.3 8.4 - 10.2 mg/dL [facility] Bilirubin, Total 0.4 0.0 - 1.0 mg/dL [facility] Aspartate Amino Transferase 22 5 - 31 U/L [facility] Alanine Aminotransferase 16 0 - 31 U/L [facility] Total Protein 7.0 6.5 - 8.0 g/dL [facility] Albumin Level 4.1 3.5 - 5.0 g/dL [facility] Alkaline Phosphatase 49 39 - 117 U/L [facility] 05/29/2025 4:06 PM EST 05/29/2025 4:09 PM EST us Generic External Data Provider LAB BLOOD ORDERAB LES Final Result [facility] [address] [place] [phone] * (ABNORMAL) CBC auto differential (05/29/2025 4:06 PM EST) White Blood Count 6.5 4.8 - 10.8 X10*3/uL [facility] Red Blood Count 3.85(L) 4.20 - 5.50 X10*6/uL [facility] Hemoglobin 11.1(L) 12.0 - 16.0 g/dl [facility] Hematocrit 32.7(L) 37.0 - 47.0 % [facility] Mean Corpuscular Volume 84.9 80.0 - 98.0 fL [facility] Mean Corpuscular Hemoglobin 28.8 27.0 - 33.0 pg [facility] Mean Corpuscular HGB Conc 33.9 31.0 - 35.0 g/dl [facility] Red Cell Distribution Width 14.1 11.0 - 16.0 % [facility] Platelet Count 306 160 - 400 X10*3/uL [facility] Mean Platelet Volume 9.3(L) 9.4 - 12.3 fL [facility] Neutrophils Percent Auto 64.1 45 - 73 % [facility] Imm Gran Pct Auto 0.5(H) 0.0 - 0.4 % [facility] Lymphocytes Percent Auto 27.2 20 - 40 % [facility] Monocytes Percent Auto 6.8 2 - 11 % [facility] Eosinophils Percent Auto 1.2 0 - 4 % [facility] Basophils Percent Auto 0.2 0 - 2 % [facility] NRBC Pct Auto 0.0 0.0 - 0.2 /100WBC [facility] Neutrophils Absolute Auto 4.2 2.0 - 8.3 x10*3/uL [facility] Imm Gran Abs Auto 0.03 0.00 - 0.03 X10*3/uL [facility] Lymphocytes Absolute Auto 1.8 1.2 - 4.9 X10*3/uL [facility] Monocytes Absolute Auto 0.4 0.1 - 1.2 X10*3/uL [facility] Eosinophils Absolute Auto 0.1 0.0 - 0.4 X10*3/uL [facility] Basophils Absolute Auto 0.0 0.0 - 0.2 X10*3/uL [facility] NRBC Abs Auto 0.000 0.0 - 0.012 X10*3/uL [facility] 05/29/2025 4:06 PM EST 05/29/2025 4:09 PM EST us Generic External Data Provider LAB BLOOD ORDERAB LES Final Result [facility] [address] [place] [phone] documented in this encounter Visit Diagnoses Not on filedocumented in this encounter Additional Health Concerns Assessment Noted Time PHQ-9 Depression Total Score: 23 025 8:36 AM EST documented as of this encounter Care Teams Hose Seamer Relationship Specialty Start Date End Date Flaca Matthews MD [address] [place] [address] PCP - General Family Medicine 03/05/21 documented as of this encounter
--- OUTSIDE RECORDS SUMMARY | 2025-05-29 17:36 | XMS_ITS | Encounter Summary ---
Author Organization [employer] Address [address] [place] [address] Care Team Providers Care Reaming Machine Operator For Plastic Name Role Phone Flaca Matthews MD Primary Care Provider [phone] Encounter Details Date Type Department Care Team ([facility] st Contact Info) Description 05/28/2025 Orders Only [facility] & PEDS [address] [place], [place] [phone] Flaca Matthews MD [address] [place], [place] [phone] Social History Tobacco Use Types Packs/Day Years [...] Description 05/30/2025 1:30 PM EST Office Visit [facility] P[facility] [address] [place] [address] Flaca Matthews MD [address] [place] [address] 06/27/2025 3:45 PM EST Office Visit [facility] [address] [place] [address] Flaca Matthews MD [address] [place] [address] documented as of this encounter Procedures Procedure Name Priority Date/Time Associated Diagnosis Comments US ABDOMEN COMPLETE Routine 05/29/2025 1 2:50 PM EST documented in this encounter Results * US Abdomen Complete (05/29/2025 12:50 PM EST) Anatomical Region Laterality Modality Abdomen Ultrasound 05/29/2025 12:5 0 PM EST Narrative 05/29/2025 12:51 PM EST [address] [address] Ultrasound Report Signed Patient: Lyubov Frazier MR#: [id number] : 1980 Acct:[id number] Age/Sex: 44 / F ADM Date: 05/28/25 Loc: HO.US Attending Dr: Flaca Matthews MD Ordering Physician: Flaca Matthews MD Date of Service: 05/28/25 Procedure(s): US abdomen complete Accession Number(s): [id number] cc: Flaca Matthews MD Reason for Exam: [...] 05/29/25 1251 DD/ 1250 TD/TT: 05/29/25 1250 Rn Occupational Health: Procedure Note Donotuseinterpreter, Image - 05/29/2025 [place] [address] Ultrasound Report Signed Patient: Lyubov Frazier [facility]#: [id number] : 1980Acct:[id number] Age/Sex: 44 / FADM Date: 05/28/25 Loc: HO.US Attending Dr: Flaca Matthews MD Ordering Physician: Flaca Matthews MD Date of Service: 05/28/25 Procedure(s): US abdomen complete Accession Number(s): [id number] cc: Flaca Matthews MD Reason for Exam: [...] 05/29/25 1251 DD/ 1250 TD/TT: 05/29/25 1250 Rn Occupational Health: us Flaca Matthews MD IMG US PROCEDURES Edited Resu lt - Final documented in this encounter Visit Diagnoses Not on filedocumented in this encounter Additional Health Concerns Assessment Noted Time PHQ-9 Depression Total Score: 23 025 8:36 AM EST documented as of this encounter Care Teams Reaming Machine Operator For Plastic Relationship Specialty Start Date End Date Flaca Matthews MD [address] [place] [phone] PCP - General Family Medicine 03/05/21 documented as of this encounter
--- OUTSIDE RECORDS SUMMARY | 2025-05-29 17:36 | XMS_ITS | Clinical Summary ---
Author Organization [facility] Address [address] [place] [address] Phone Care Team Providers Care Manager Unit Name Role Phone Flaca Matthews MD Primary Care Provider [phone] Allergies Active Allergy Reactions Criticality Noted Date Comments Ciprofloxacin 04/12/2025 Morphine 04/12/2025 Ibuprofen 04/12/2025 Sulfa (Sulfonamide Antibiotics) 11/2024 Encounters Date Type Department Care Team Description 04/12/2025 3:38 PM EST - 04/12/2025 4:39 PM EST Emergency [facility] Emergency [address] [place] [address] oLgan Tejeda MD Contusion of left shoulder, initial [...] topic Insurance MEDICAID - [place] Care Teams Manager Unit Relationship Specialty Start Date End Date Flaca Matthews MD [address] [place] [phone] PCP - General 03/29/23
[2025-05-29 18:01] VITALS: BP 176/103; PULSE 78; RESP 16; O2SAT 100
[2025-05-29 18:08] LABS: Troponin-I High Sensitivity < 2.7 ng/L (<3.5-17.0)
[2025-05-29 18:20] VITALS: BP 168/90; PULSE 78; RESP 16; TEMP 36.4; O2SAT 100
[2025-05-29 18:24] VITALS: BP 135/92; PULSE 82; RESP 16; TEMP 36.4; O2SAT 100
== END 2025-05-29 18:25 | disposition home or self-care (01) ==
PROVIDERS: Physician Assistant; Emergency Provider Emergency Medicine; PCP Family Medicine
DX: D25.9 Leiomyoma of uterus, unspecified (principal); R10.32 Left lower quadrant pain
CPT/HCPCS: 36415; 80053; 83690; 84484; 84702; 85025; 93005; 99283; 99285

== ENCOUNTER → 2025-05-29 15:56 | Outpatient (BNV) | payer MEDICAID, SELFPAY | PROVIDERS: Emergency Provider Emergency Medicine; PCP Family Medicine; Visit Provider Internal Medicine Cardiovascular Disease | DX: R10.9 Unspecified abdominal pain (principal) | CPT/HCPCS: 93010 ==

== ENCOUNTER 2025-05-30 14:25 | Outpatient (REF) | payer MEDICAID, SELFPAY ==
--- OUTSIDE RECORDS SUMMARY | 2025-05-30 13:30 | XMS_ITS | Encounter Summary ---
Author Organization [employer] Address 75 [facility] 7t [place] [address] Care Team Providers Care Life Skills Worker Name Role Phone Flaca Matthews MD Primary Care Provider [phone] Reason for Referral * Consultation (Routine) - Pending Review Specialty Diagnoses / Procedures Referred By Contandrade moctezuma Referred To Contact Obstetrics and Gynecology Diagnoses Leiomyoma Flaca Matthews MD [address] [place] [address] Phone: tel: fax: Referral ID Status Reason Start Date Expiration Date Visits Requested Visits Authorized [id number] Pending Review Specialty Services Required 5 05/30/2026 1 1 Encounter Details Date Type Department Care Team ([facility] st Contact Info) Description 05/30/2025 1:30 PM EST Office Visit [facility] CHC MED & PEDS [address] [place] [address] Flaca Matthews MD [address] [place] [address] Leiomyoma (Primary Dx); Urinary incontinence without sensory awareness; Pelvic pain Social History Tobacco Use Types Packs/Day Years [...] Sign Reading Time Taken Comments Blood Pressure 127/89 05/30/2025 1:33 PM EST Pulse 76 05/30/2025 1:33 PM EST Temperature 36.8 C (98.2 F) 05/30/2025 1:33 PM EST Respiratory Rate 20 05/30/2025 1:33 PM EST Oxygen Saturation 98% 05/30/2025 1:33 PM EST Inhaled Oxygen Concentration - - Weight 96.3 kg (212 lb 6.4 oz) 05/30/2025 1:33 P M EST Height 157.5 cm (5' 2 ) 05/30/2025 1:33 PM EST Body Mass Index 38.85 05/30/2025 1:33 PM EST documented in this encounter Plan of Treatment Upcoming Encounters Date Type Department Care Team (Late st Contact Info) Description 06/27/2025 3:45 PM EST Office Visit [facility] CHC MED & PEDS [address] [place] [address] Flaca Matthews MD [address] [place] [address] Scheduled Orders Name Type Priority Associated Diagnoses Orde r Schedule Culture, Urine, Routine Microbiology Routine Urinary incontinence without sensory awareness Expected: 05/30/2025 (Approximate), Expires: 05/30/2026 POCT Urinalysis Point of Care Testing Routine Urinary incontinence without sensory awareness Ordered: 05/30/2025 Scheduled Referrals Name Type Priority Associated Diagnoses Order Schedule Referral to Obstetrics / Gynecology Outpatient Referral Routine Leiomyoma Expected: 05/30/2025 (Approximate), Expires: 05/30/2026 documented as of this encounter Visit Diagnoses Diagnosis Leiomyoma- Primary Other benign neoplasm of connective and other soft tissue of unspecified site Urinary incontinence without sensory awareness Incontinence without sensory awareness Pelvic pain documented in this encounter Additional Health Concerns Assessment Noted Time PHQ-9 Depression Total Score: 23 025 8:36 AM EST documented as of this encounter Care Teams Life Skills Worker Relationship Specialty Start Date End Date Flaca Matthews MD [address] [place] [address] PCP - General Family Medicine 03/05/21 documented as of this encounter
--- OUTSIDE RECORDS SUMMARY | 2025-05-30 14:28 | XMS_ITS | Clinical Summary ---
Author Organization [facility] Address [address] [place] [address] Phone Care Team Providers Care Bulk Plant Supervisor Name Role Phone Flaca Matthews MD Primary Care Provider [phone] Allergies Active Allergy Reactions Criticality Noted Date Comments Ciprofloxacin 04/12/2025 Morphine 04/12/2025 Ibuprofen 04/12/2025 Sulfa (Sulfonamide Antibiotics) 11/2024 Encounters Date Type Department Care Team Description 04/12/2025 3:38 PM EST - 04/12/2025 4:39 PM EST Emergency [facility] Emergency [address] [place] [address] Logan Tejeda MD Contusion of [...] topic Insurance MEDICAID - [place] Care Teams Bulk Plant Supervisor Relationship Specialty Start Date End Date Flaca Matthews MD [address] [place] [address] PCP - General 03/29/23
--- OUTSIDE RECORDS SUMMARY | 2025-05-30 14:28 | XMS_ITS | Encounter Summary ---
Author Organization [employer] Address 75 [facility] 7t [place] [address] Care Team Providers Care Merchant Banker Name Role Phone Flaca Matthews MD Primary Care Provider [phone] Reason for Visit * Reason Comments Med Refill Encounter Details Date Type Department Care Team ([facility] Contact Info) Description 11/12/2024 Refill [facility] CHC MED & PEDS [address] [place], [place] [phone] Anthony Vazquez MD [address] [place] [address] Social History Tobacco Use Types Packs/Day Years [...] 3:45 PM EST Office Visit [facility] MED & PEDS [address] [place] [address] Flaca Matthews MD [address] [place] [address] documented as of this encounter Visit Diagnoses Not on filedocumented in this encounter Additional Health Concerns Assessment Noted Time PHQ-9 Depression Total Score: 14 023 3:08 PM EST documented as of this encounter Care Teams Merchant Banker Relationship Specialty Start Date End Date Flaca Matthews MD [address] [place] [address] PCP - General Family Medicine 03/05/21 documented as of this encounter
--- OUTSIDE RECORDS SUMMARY | 2025-05-30 14:28 | XMS_ITS | Encounter Summary ---
Author Organization [employer] Address [address] [facility] 7t [place] [address] Care Team Providers Care Sanding Machine Operator Name Role Phone Flaca Matthews MD Primary Care Provider Encounter Details Date Type Department Care Team (Latest Contact Info) Description 04/18/2025 Results Follow-Up [facility] CHC MED & PEDS [address] [place], [place] [phone] Flaca Matthews MD [address] [place] [address] CBC auto differential, Comprehensive Metabolic Panel, Lipase [...] Description 06/27/2025 3:45 PM EST Office Visit [facility] MED & PEDS [address] [place] [address] Flaca Matthews MD [address] [place] [address] Scheduled Orders Name Type Priority Associated Diagnoses Orde r Schedule CBC auto differential Lab Routine Anemia, unspecified type Expected: 04/18/2025 (Approximate), Expires: 04/18/2026 documented as of this encounter Visit Diagnoses Diagnosis Anemia, unspecified type- Primary documented in this encounter Additional Health Concerns Assessment Noted Time PHQ-9 Depression Total Score: 23 025 8:36 AM EST documented as of this encounter Care Teams Sanding Machine Operator Relationship Specialty Start Date End Date Flaca Matthews MD [address] [place] [address] PCP - General Family Medicine 03/05/21 documented as of this encounter
--- OUTSIDE RECORDS SUMMARY | 2025-05-30 14:28 | XMS_ITS | Encounter Summary ---
Author Organization [employer] Address [address] 7[address] [place] [address] Care Team Providers Care Men'S Basketball Coach Name Role Phone Flaca Matthews MD Primary Care Provider [phone] Reason for Visit * Reason Onset Date Comments Referral 03/31/2024 Encounter Details Date Type Department Care Team ([facility] Contact Info) Description 03/31/2024 Telephone [facility] MEDICINE [address] [place] [address] Flaca Matthews MD [address] [place] [address] Referral Social History Tobacco Use Types Packs/Day [...] TMJ , Pt will like a callback [phone] documented in this encounter Plan of Treatment Upcoming Encounters Date Type Department Care Team (Late st Contact Info) Description 06/27/2025 3:45 PM EST Office Visit [facility] MED & PEDS [address] [place] [address] Flaca Matthews MD [address] [place] [address] documented as of this encounter Visit Diagnoses Not on filedocumented in this encounter Additional Health Concerns Assessment Noted Time PHQ-9 Depression Total Score: 14 023 3:08 PM EST documented as of this encounter Care Teams Men'S Basketball Coach Relationship Specialty Start Date End Date Flaca Matthews MD [address] [place] [address] PCP - General Family Medicine 03/05/21 documented as of this encounter
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
--- OUTSIDE RECORDS SUMMARY | 2025-05-30 14:28 | XMS_ITS | Encounter Summary ---
Author Organization [employer] Address 75 [facility] 7t [place] [address] Care Team Providers Care Cable Tool Driller Name Role Phone Flaca Matthews MD Primary Care Provider [phone] Reason for Visit * Reason Onset Date Comments Nurse Triage 02/18/2023 Encounter Details Date Type Department Care Team ([facility] st Contact Info) Description 02/18/2023 Telephone [facility] CHC MED & PEDS [address] [place] [address] Flaca Matthews MD [address] [place] [address] Nurse Triage Social History Tobacco Use Types [...] accepted this outcome Please contact pt at [phone] documented in this encounter Plan of Treatment Upcoming Encounters Date Type Department Care Team ([facility] st Contact Info) Description 06/27/2025 3:45 PM EST Office Visit [facility] MED & PEDS [address] [place] [address] Flaca Matthews MD [address] [place] [address] documented as of this encounter Visit Diagnoses Not on filedocumented in this encounter Additional Health Concerns Assessment Noted Time PHQ-9 Depression Total Score: 20 023 1:36 PM EST documented as of this encounter Care Teams Cable Tool Driller Relationship Specialty Start Date End Date Flaca Matthews MD [address] [place] [address] PCP - General Family Medicine 03/05/21 documented as of this encounter
--- OUTSIDE RECORDS SUMMARY | 2025-05-30 14:28 | XMS_ITS | Encounter Summary ---
Author Organization [employer] Address 75 [facility] 7t [place] [address] Care Team Providers Care Apparatus Lineman Name Role Phone Flaca Matthews MD Primary Care Provider [phone] Reason for Visit * Reason Comments Med Refill Encounter Details Date Type Department Care Team ([facility] st Contact Info) Description 03/30/2023 Refill [facility] DIABETES/NUTRITION [address] [place] [address] Flaca Matthews MD [address] [place] [address] Social History Tobacco Use Types Packs/Day Years [...] Description 06/27/2025 3:45 PM EST Office Visit [facility] CHC MED & PEDS [address] [place] [address] Flaca Matthews MD [address] [place] [address] documented as of this encounter Visit Diagnoses Not on filedocumented in this encounter Additional Health Concerns Assessment Noted Time PHQ-9 Depression Total Score: 20 023 1:36 PM EST documented as of this encounter Care Teams Apparatus Lineman Relationship Specialty Start Date End Date Flaca Matthews MD [address] [place] [address] PCP - General Family Medicine 03/05/21 documented as of this encounter
--- OUTSIDE RECORDS SUMMARY | 2025-05-30 14:28 | XMS_ITS | Encounter Summary ---
Author Organization [employer] Address [address] [facility] [address] [place] [address] Care Team Providers Care Jewel Diameter Gauger Name Role Phone Flaca Matthews MD Primary Care Provider [phone] Reason for Visit * Reason Onset Date Comments Referral 04/27/2024 Encounter Details Date Type Department Care Team ([facility] Contact Info) Description 04/27/2024 Telephone [facility] MEDICINE [address] [place] [address] Flaca Matthews MD [address] [place] [address] Referral Social History Tobacco Use Types Packs/Day [...] PM EST Can we send her to [facility]? * Telephone Encounter - Caio Phillips - 04/27/2024 10:42 AM EST Tc from [facility] with [facility] calling to inform they won't be able to complete referral for TMJ, she would need to be referred else where. They advised to refer pt to [facility]. If any questions you can contact Boris at [phone]. documented in this encounter Plan of Treatment Upcoming Encounters Date Type Department Care Team (Late st Contact Info) Description 06/27/2025 3:45 PM EST Office Visit [facility] MED & PEDS [address] [place] [address] Flaca Matthews MD [address] [place] [address] documented as of this encounter Visit Diagnoses Not on filedocumented in this encounter Additional Health Concerns Assessment Noted Time PHQ-9 Depression Total Score: 14 023 3:08 PM EST documented as of this encounter Care Teams Jewel Diameter Gauger Relationship Specialty Start Date End Date Flaca Matthews MD [address] [place] [address] PCP - General Family Medicine 03/05/21 documented as of this encounter
--- OUTSIDE RECORDS SUMMARY | 2025-05-30 14:28 | XMS_ITS | Encounter Summary ---
Author Organization [employer] Address [address] [facility] [address] 7[address] [place] [address] Care Team Providers Care Granulating Machine Operator Name Role Phone Flaca Matthews MD Primary Care Provider [phone] Encounter Details Date Type Department Care Team ([facility] st Contact Info) Description 05/28/2025 Orders Only [facility] CHC MED & PEDS [address] [place], [place] [phone] Flaca Matthews MD [address] [place], [place] [phone] Social History Tobacco Use Types Packs/Day Years [...] 3:45 PM EST Office Visit [facility] MED & PEDS [address] [place] [address] Flaca Matthews MD [address] [place] [address] documented as of this encounter Procedures Procedure Name Priority Date/Time Associated Diagnosis Comments US ABDOMEN COMPLETE Routine 05/29/2025 1 2:50 PM EST documented in this encounter Results * US Abdomen Complete (05/29/2025 12:50 PM EST) Anatomical Region Laterality Modality Abdomen Ultrasound 05/29/2025 12:5 0 PM EST Narrative 05/29/2025 12:51 PM EST [address] [address] Ultrasound Report Signed Patient: Lyubov Frazier MR#: [id number] : 1980 Acct:[id number] Age/Sex: 44 / F ADM Date: 05/28/25 Loc: HO.US Attending Dr: Flaca Matthews MD Ordering Physician: Flaca Matthews MD Date of Service: 05/28/25 Procedure(s): US abdomen complete Accession Number(s): [id number] cc: Flaca Matthews MD Reason for Exam: [...] 05/29/25 1251 DD/ 1250 TD/TT: 05/29/25 1250 Epoxy Coatings Installer: Procedure Note Donotuseinterpreter, Image - 05/29/2025 [place] [address] Ultrasound Report Signed Patient: Lyubov Frazier [facility]#: [id number] : 1980Acct:[id number] Age/Sex: 44 / FADM Date: 05/28/25 Loc: HO.US Attending Dr: Flaca Matthews MD Ordering Physician: Flaca Matthews MD Date of Service: 05/28/25 Procedure(s): US abdomen complete Accession Number(s): [id number] cc: Flaca Matthews MD Reason for Exam: [...] 05/29/25 1251 DD/ 1250 TD/TT: 05/29/25 1250 Epoxy Coatings Installer: us Flaca Matthews MD G US PROCEDURES Edited Resu lt - Final documented in this encounter Visit Diagnoses Not on filedocumented in this encounter Additional Health Concerns Assessment Noted Time PHQ-9 Depression Total Score: 23 025 8:36 AM EST documented as of this encounter Care Teams Granulating Machine Operator Relationship Specialty Start Date End Date Flaca Matthews MD [address] [place] [address] PCP - General Family Medicine 03/05/21 documented as of this encounter
--- OUTSIDE RECORDS SUMMARY | 2025-05-30 14:28 | XMS_ITS | Encounter Summary ---
Author Organization [employer] Address 75 [facility] 7t [place] [address] Care Team Providers Care Quality Assurance Monitor Final Name Role Phone Flaca Matthews MD Primary Care Provider Reason for Visit * Reason Onset Date Comments Nurse Triage 05/29/2025 Encounter Details Date Type Department Care Team ([facility] Contact Info) Description 05/29/2025 Telephone [facility] CHC MED & PEDS [address] [place] [address] Flaca Matthews MD [address] [place] [address] Nurse Triage Social History Tobacco Use Types [...] caller accepted this outcome. Contact pt at [phone] documented in this encounter Plan of Treatment Upcoming Encounters Date Type Department Care Team (Late st Contact Info) Description 06/27/2025 3:45 PM EST Office Visit [facility] MED & PEDS [address] [place] [address] Flaca Matthews MD [address] [place] [address] documented as of this encounter Visit Diagnoses Not on filedocumented in this encounter Additional Health Concerns Assessment Noted Time PHQ-9 Depression Total Score: 23 025 8:36 AM EST documented as of this encounter Care Teams Quality Assurance Monitor Final Relationship Specialty Start Date End Date Flaca Matthews MD [address] [place] [address] PCP - General Family Medicine 03/05/21 documented as of this encounter
--- OUTSIDE RECORDS SUMMARY | 2025-05-30 14:28 | XMS_ITS | Encounter Summary ---
Author Organization [employer] Address [address] [facility] [address] 7[address] [place] [address] Care Team Providers Care Dinkey Operator Name Role Phone Flaca Matthews MD Primary Care Provider [phone] Encounter Details Date Type Department Care Team (Latest Contact Info) Description 05/30/2025 Travel Social History Tobacco Use Types Packs/Day [...] Description 06/27/2025 3:45 PM EST Office Visit [facility] MED & PEDS [address] [place] [address] Flaca Matthews MD [address] [place] [address] documented as of this encounter Visit Diagnoses Not on filedocumented in this encounter Additional Health Concerns Assessment Noted Time PHQ-9 Depression Total Score: 23 025 8:36 AM EST documented as of this encounter Care Teams Dinkey Operator Relationship Specialty Start Date End Date Flaca Matthews MD [address] [place] [address] PCP - General Family Medicine 03/05/21 documented as of this encounter
--- OUTSIDE RECORDS SUMMARY | 2025-05-30 14:28 | XMS_ITS | Clinical Summary ---
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 Colorectal Cancer Screening: Recommendations for Physicians and Patients from the U.S. Multi-Society Task Force on Colorectal Cancer Screening , Am J Gastroenterology 2017; 112:5698-8640. TEST DESCRIPTION: Composite algorithmic analysis of stool [...] Suárez et al, N Engl J Med 2014;370(14):5769-2475.) Cologuard may produce a false negative or false positive result (no colorectal cancer or precancerous polyp present at colonoscopy follow up). A negative Cologuard test result does not guarantee the absence of CRC or advanced adenoma (pre-cancer). The current Cologuard screening interval is every 3 years. ([place] [employer] and U.S. Multi-Society Task Force). Cologuard performance data in a 10,000 patient pivotal study using colonoscopy as the reference method can be accessed at the following location: www.Zodio/results. Additional description of the Cologuard test process, warnings and precautions can be found at www.cologuard.com. Stool specimen (specimen) 02/03/2024 5:45 PM EDT 02/05/2024 7:29 AM EDT Flaca Matthews MD LAB MOLECULAR DIAGNOSTICS ORD ERABLES Final Result [facility] (CLIA #:[id number]) [address] [place] [address], * Hepatitis C Antibody with Reflex to HCV, RNA, Quantitative, Real-Time PCR (12/22/2023 12:00 AM EDT) Hepatitis C Antibody Nonreactive Nonreactive [facility] Comment:Antibodies to HCV no t detected; does not exclude early acuteHCV infection. Blood Venous blood specimen / Unknown 12/22/2023 12/22/2023 Flaca Matthews MD LAB BLOOD ORDERABLES Final Re sult Performing Organization Address [facility] Co de Phone Number [facility] [address] [place], [place] [phone] * HIV-1/2 Antigen and Antibodies, Fourth Generation, with Reflexes (12/22/2023 12:00 AM EDT) HIV AB/AG Nonreactive Nonreactive [facility] Comment:HIV-1 p24 Ag and/or HIV-1/HIV-2 Ab not detected.A test result that is nonreactive does not exclude thepossibility of exposure to or infection with HIV-1 and/orHIV-2. Nonreactive results in this assay for individualswith prior exposure to HIV-1 and/or HIV-2 may be due toantigen and antibody levels that are below the limit ofdetection of this assay.The [employer] E2MS HIV Ag/Ab Combo assay result andsupplemental assay results should be interpreted inconjunction with the patient's clinical presentation,history and other laboratory results. If the results areinconsistent with clinical evidence, additional testing issuggested to confirm the result. Blood Venous blood specimen / Unknown 12/22/2023 12/22/2023 us Flaca Matthews MD LAB BLOOD ORDERABLES Final Re sult [facility] [address] [place] [address] [phone] * BI Mammogram Screening Tomosynthesis Bilateral (07/14/2023 8:48 AM EST) Anatomical Region Laterality Modality Breast Bilateral Mammography 07/14/2023 8:48 AM EST Narrative 08/07/2023 7:56 PM EST [address] [place] [address] Mammography Report Signed Patient: Lyubov Frazier MR#: [id number] : 1980 Acct:[id number] Age/Sex: 42 / F ADM Date: 07/14/23 Loc: HO.MAMMO Attending Dr: Flaca Matthews MD Ordering Physician: Flaca Matthews MD Results: 2Beni gn Findings Date of Service: 07/14/23 Follow Up: 1 Year From Orig ina Mammogram Procedure(s): MM tomosynthesis screening BI Accession Number(s): [id number] cc: Flaca Matthews MD EXAMINATION: MM SCREENING [...] MD in OV> 08/07/231952 DD/ 0848 TD/TT: Unpaid Intern: Procedure Note Donotuseinterpreter, Image - 08[facility]07[facility] [address] [place], [place] [address] Mammography Report Signed Patient: Lyubov Frazier DMR#: [id number] : 1980Acct:[id number] Age/Sex: 42 / FADM Date: 07/14/23 Loc: [place] Attending Dr: Flaca Matthews MD Ordering Physician: Flaca Matthews MDResults: 2Beni gn Findings Date of Service: 07/14/23Follow Up: 1 Year From Orig inal Mammogram Procedure(s): MM tomosynthesis screening BI Accession Number(s): [id number] cc: Flaca Matthews MD EXAMINATION: MM SCREENING [...] MD in OV> 08/07/231952 DD/ 7 TD/TT: Unpaid Intern: Flaca Matthews MD IMG BI PROCEDURES Final [...] been evaluated with computer assisted technology. [facility] Doll Wig Maker Rooted Hair: SEE COMMENT [facility] Comment: DCR, CT(ASCP) CT screening location: [address] [address] HPV nRNA E6/E7 Not Detected Not Detected [facility] [employer]Fire Comment: Methodology: Disbursing Officer-Mediated Amplification This assay detects E6/E7 viral messenger RNA (mRNA) from 14 high-risk HPV types (16,18,31,33,35,39,45,51,52,56,58,59,66,68). The analytical performance characteristics of this assay have been determined by [employer]. The modifications have not been cleared or approved by the FDA. This assay has been validated pursuant to the CLIA regulations and is used for clinical purposes. For additional information, please refer to http://education.[employer].Flavours/faq/ZYG259f4 (This link if provided for information/ educational purposes only.) Interpretation/Re sult: Negative for intraepithelial lesion or malignancy. [facility] LMP: NONE [facility] Prev. BX: NONE [facility] Prev. PAP: NONE [facility] Review Doll Wig Maker Rooted Hair: SEE COMMENT [facility] Comment: NSS, CT(ASCP) CT screening location: [address] [address] SOURCE: None given [facility] Statement Of Adequacy: SEE COMMENT [facility] Comment: Satisfactory for evaluation. Endocervical/transformation zone component present. Age and/or menstrual status not provided 04/11/2021 12:0 7 PM EDT Flaca Matthews MD LAB PATHOLOGY ORDERABLES Liseth l Result [facility] [address] * Thinprep Pap And HPV DNA (04/11/2021) 04/11/2021 Narrative Flaca Matthews MD - 08/04/2022 1:59 PM EST NILM +TZ, NHRHPV Historical Provider LAB PATHOLOGY ORDERABLES Final Result from Last 3 Months or Most Recently Relevant to Health Maintenance [place] [place] [address] C3 [facility] MEDICAID STAND ADULT Care Teams Oral Hygienist Relationship Specialty Start Date End Date Flaca Matthews MD [address] [place] [phone] PCP - General Family Medicine 03/05/21
--- OUTSIDE RECORDS SUMMARY | 2025-05-30 14:28 | XMS_ITS | Encounter Summary ---
Author Organization [employer] Address [address] [facility] [address] [place] [address] Care Team Providers Care Hospice Clinical Supervisor Name Role Phone Flaca Matthews MD Primary Care Provider [phone] Reason for Visit * Reason Comments Med Refill Encounter Details Date Type Department Care Team ([facility] st Contact Info) Description 03/27/2023 Refill [facility] DIABETES/NUTRITION [address] [place] [address] Flaca Matthews MD [address] [place] [address] Social History Tobacco Use Types Packs/Day Years [...] 3:45 PM EST Office Visit [facility] CHC MED & PEDS [address] [place], [place] [phone] Flaca Matthews MD [address] [place] [address] documented as of this encounter Visit Diagnoses Not on filedocumented in this encounter Additional Health Concerns Assessment Noted Time PHQ-9 Depression Total Score: 20 023 1:36 PM EST documented as of this encounter Care Teams Hospice Clinical Supervisor Relationship Specialty Start Date End Date Flaca Matthews MD [address] [place] [address] PCP - General Family Medicine 03/05/21 documented as of this encounter
--- OUTSIDE RECORDS SUMMARY | 2025-05-30 14:28 | XMS_ITS | Encounter Summary ---
Author Organization [employer] Address [address] [facility] [address] [place] [address] Care Team Providers Care Organizational Development Consultant Name Role Phone Flaca Matthews MD Primary Care Provider [phone] Encounter Details Date Type Department Care Team [...] Description 06/27/2025 3:45 PM EST Office Visit [facility] CHC MED & PEDS [address] [place] [address] Flaca Matthews MD [address] [place] [address] documented as of this encounter Procedures Procedure Name Priority Date/Time Associated Diagnosis Comments HIGH SENSITIVITY TROPONIN I Routine 05/29/2025 4:06 PM EST CBC WITH AUTO DIFFERENTIAL Routine 05/29/2025 4:06 PM EST HCG, TOTAL, QN Routine 05/29/2025 4:06 PM EST LIPASE Routine 05/29/2025 4:06 PM EST COMPREHENSIVE METABOLIC PANEL Routine 05/29/2025 4:06 PM EST documented in this encounter Results * High Sensitivity Troponin I (05/29/2025 4:06 PM EST) TROPONIN I HIGH SENSITIVITY <2.7 <3.5 - 17.0 ng/L [facility] Comment:The Raymundo high sens itivity Troponin-I results should beused in conjunction with other diagnostic information suchas ECG, clinical observations and information, and patientsymptoms to aid in the diagnosis of GA. 05/29/2025 4:06 PM EST 05/29/2025 5:46 PM EST us Generic External Data Provider LAB BLOOD ORDERAB LES Final Result Performing Organization Address City/[facility]/ZIP Co de Phone Number [facility] [address] [place] [phone] * hCG, Total, Quantitative (05/29/2025 4:06 PM EST) HCG Quantitative <2 mIU/mL [facility] Comment:Weeks post LMP Appro ximate hCG(Last Menstrual Period) Range (mIU/ml)3 - 4 weeks 9 - 1304 - 5 weeks 75 - 2,6005 - 6 weeks 850 - 20,8006 - 7 weeks 4000 - 100,2007 - 12 weeks 11,500 - 289,98791 - 16 weeks 18,300 - 137,95768 - 29 weeks (2nd trimester) 1,400 - 53,63953 - 41 weeks (3rd trimester) 940 - [...] ORDERAB LES Final Result Performing Organization Address City/[facility]/ZIP Co de Phone Number [facility] [address] [place] [phone] * Lipase (05/29/2025 4:06 PM EST) Lipase 24 8 - 78 U/L [facility] 05/29/2025 4:06 PM EST 05/29/2025 4:09 PM EST us Generic External Data Provider LAB BLOOD ORDERAB LES Final Result Performing Organization Address City/[facility]/ZIP Co de Phone Number [facility] [address] [place] [address] [place] [phone] * (ABNORMAL) Comprehensive Metabolic Panel (05/29/2025 4:06 PM EST) Sodium 142 135 - 145 mmol/L [facility] Potassium 4.2 3.3 - 5.1 mmol/L [facility] Chloride 109(H) 96 - 108 mmol/L [facility] Carbon Dioxide 27 22 - 29 mmol/L [facility] Anion Gap 10(L) 12 - 20 [facility] Urea Nitrogen (BUN) 5(L) 9 - 16 mg/dL [facility] Creatinine, Serum 0.65 0.5 - 1.4 mg/dL [facility] Creatinine Clr Calc Pharmacy 120.4 [facility] Comment:Provided height and weight: 160.02 cm,97.8 kg.eGFR (calculated from the MDRD study equation) and eCrCl(calculated from the Cockcroft-Gault equation) are based ondifferent parameters and may not yield comparable results.If eCrCl result is absurd, please check patient'sheight/weight. Estimated Glomerular Filt Rate >60 [facility] Comment:Chronic Kidney Disea se: Estimated GFR < 60 mL/min/1.62q8Pbjhfc Kidney Disease: Estimated GFR < 15 mL/min/1.73m2 Glucose 87 60 - 115 mg/dL [facility] Calcium 9.3 8.4 - 10.2 mg/dL [facility] Bilirubin, Total 0.4 0.0 - 1.0 mg/dL [facility] Aspartate Amino Transferase 22 5 - 31 U/L [facility] Alanine Aminotransferase 16 0 - 31 U/L [facility] Total Protein 7.0 6.5 - 8.0 g/dL [facility] Albumin Level 4.1 3.5 - 5.0 g/dL [facility] Alkaline Phosphatase 49 39 - 117 U/L [facility] 05/29/2025 4:06 PM EST 05/29/2025 4:09 PM EST us Generic External Data Provider LAB BLOOD ORDERAB LES Final Result [facility] [address] [place], [place] [phone] * (ABNORMAL) CBC auto differential (05/29/2025 4:06 PM EST) White Blood Count 6.5 4.8 - 10.8 X10*3/uL [facility] Red Blood Count 3.85(L) 4.20 - 5.50 X10*6/uL [facility] Hemoglobin 11.1(L) 12.0 - 16.0 g/dl [facility] Hematocrit 32.7(L) 37.0 - 47.0 % [facility] Mean Corpuscular Volume 84.9 80.0 - 98.0 fL [facility] Mean Corpuscular Hemoglobin 28.8 27.0 - 33.0 pg [facility] Mean Corpuscular HGB Conc 33.9 31.0 - 35.0 g/dl [facility] Red Cell Distribution Width 14.1 11.0 - 16.0 % [facility] Platelet Count 306 160 - 400 X10*3/uL [facility] Mean Platelet Volume 9.3(L) 9.4 - 12.3 fL [facility] Neutrophils Percent Auto 64.1 45 - 73 % [facility] Imm Gran Pct Auto 0.5(H) 0.0 - 0.4 % [facility] Lymphocytes Percent Auto 27.2 20 - 40 % [facility] Monocytes Percent Auto 6.8 2 - 11 % [facility] Eosinophils Percent Auto 1.2 0 - 4 % [facility] Basophils Percent Auto 0.2 0 - 2 % [facility] NRBC Pct Auto 0.0 0.0 - 0.2 /100WBC [facility] Neutrophils Absolute Auto 4.2 2.0 - 8.3 x10*3/uL [facility] Imm Gran Abs Auto 0.03 0.00 - 0.03 X10*3/uL [facility] Lymphocytes Absolute Auto 1.8 1.2 - 4.9 X10*3/uL [facility] Monocytes Absolute Auto 0.4 0.1 - 1.2 X10*3/uL [facility] Eosinophils Absolute Auto 0.1 0.0 - 0.4 X10*3/uL [facility] Basophils Absolute Auto 0.0 0.0 - 0.2 X10*3/uL [facility] NRBC Abs Auto 0.000 0.0 - 0.012 X10*3/uL [facility] 05/29/2025 4:06 PM EST 05/29/2025 4:09 PM EST us Generic External Data Provider LAB BLOOD ORDERAB LES Final Result Performing Organization Address City/State/[facility] Co de Phone Number [facility] [address] [place] [phone] [phone] documented in this encounter Visit Diagnoses Not on filedocumented in this encounter Additional Health Concerns Assessment Noted Time PHQ-9 Depression Total Score: 23 025 8:36 AM EST documented as of this encounter Care Teams Organizational Development Consultant Relationship Specialty Start Date End Date Flaca Matthews MD [address] [place] [address] PCP - General Family Medicine 03/05/21 documented as of this encounter
== END 2025-05-30 14:26 | disposition home or self-care (01) ==
LOC: HO.CHCLNP 14:25
PROVIDERS: Visit Provider Family Medicine
DX: N39.42 Incontinence without sensory awareness (principal)
CPT/HCPCS: 87086